=== PATIENT | male | born 1955 | race Caucasian/White ===

== ENCOUNTER → 2016-12-10 | Day surgery (SDC) | payer OTHER ==
[2016-12-06 08:23] VITALS: Ht 190.5 cm; Wt 140.9 kg
[2016-12-06 14:37] LABS: BASO % 0.5 %; BASO ABS # 0.03 K/uL (0-0.2); EOS % 1.2 %; HEMATOCRIT 41.3 % (42-52); IG% 0.2 %; LYMPH % 21.5 %; LYMPH ABS # 1.21 K/uL (1.2-3.4); MEAN CELL VOLUME 83.6 fL (80-100); MEAN CORPUSCULAR HEMOGLOBIN 28.5 pg (25-34); MEAN PLATELET VOLUME 9.5 fL (7.4-10.4); MONO % 5.2 %; NEUT % 71.4 %; PLATELET COUNT 203 K/uL (130-400); RED BLOOD COUNT 4.94 M/uL (4.7-6.1); WHITE BLOOD COUNT 5.62 K/uL (4.8-10.8)
[2016-12-06 14:41] LABS: COMPLETE YES; MEAN CORPUSCULAR HGB CONC 34.1 g/dl (32-36)
[2016-12-06 14:56] LABS: INR 2.4 (0.9-1.1); PARTIAL THROMBOPLASTIN RATIO 1.4; PROTHROMBIN TIME (PATIENT) 27.1 SECONDS (9.0-12.0)
--- NOTE | 2016-12-06 15:02 | DIAGNOSTIC IMAGING REPORT ---
TWO VIEW CHEST CLINICAL HISTORY: Preoperative examination. FINDINGS: PA and lateral chest radiographs are compared to study dated 11/14/2016. The cardiomediastinal silhouette is unremarkable. The lungs and pleural spaces are clear. There is no pneumothorax. The bony thorax appears intact. Degenerative change is noted in the thoracic spine. IMPRESSION: No active disease in the chest. Electronically signed by: Morgan Nichols M.D. 12/06/2016 3:00 PM Dictated Date/Time: 12/06/2016 3:00 PM
[2016-12-06 15:11] LABS: BUN/CREATININE RATIO 11.4 (10-20); CREATININE 1.1 mg/dl (0.60-1.40); POTASSIUM 3.6 mmol/L (3.5-5.1)
--- NOTE | 2016-12-09 15:42 | DIAGNOSTIC IMAGING REPORT ---
KUB CLINICAL HISTORY: Nephrolithiasis. Urinary tract infection. Enlarged prostate. COMPARISON STUDY: CT of the abdomen and pelvis November 14, 2016 and KUB November 12, 2016. FINDINGS: A 1.2 cm calcification projects over the left renal pelvis. This likely reflects migration of the calculus which was shown on CT of November 14, 2016. No additional calculi are identified on this exam. Surgical coils within the right groin are noted. Bowel gas pattern is normal. IMPRESSION: 1.2 cm calculus likely within the left renal pelvis. Electronically signed by: Yury Pete M.D. 12/09/2016 3:40 PM Dictated Date/Time: 12/09/2016 3:37 PM
[~2016-12-10] VITALS: Ht 190.5 cm; Wt 140.9 kg
[~2016-12-10] MED LIST: ACET-1256 PO; CEFD1CAP14 PO; CEFD300C2 PO; CHOL4POW11 PO; CIPR-255 PO; CIPR1TAB11 PO; CMD05 PO; DULO60CA44 PO; EpHEDrine SULFATE INJ 50 MG/ML AMP ONE; FENTANYL CITRATE INJ 50 MCG/1 ML 2 ML VIAL IV PRN; FENTANYL CITRATE INJ 50 MCG/1 ML 2 ML VIAL ONE; FERR18TA2 PO; HYT/10 PO; HYZ/10015 PO; LACTATED RINGER'S 1000ML 1,000 ML IV PRN; LACTATED RINGER'S 1000ML 1,000 ML IV SCH; LEVOFLOXACIN / D5W 500 MG IV SCH; LEVOFLOXACIN 500MG / D5W IV SCH; LIDOCAINE HCL 2% 2 ML VIAL (20MG/ML) ONE; METO1TAB69 PO; METR-163 PO; MIDAZOLAM HCL 1 MG/ML 2ML VIAL ONE; MINO1TAB PO; MISCCAP80 PO; MULT-506 PO; NRV/5 PO; ONDANSETRON INJ 2 MG/ML 2 ML VIAL IV PRN; ONDANSETRON INJ 2 MG/ML 2 ML VIAL ONE; OXYC-57 PO; OXYC-609 PO; OXYC1TAB3 PO; OXYCODONE/ACETAMINOPHEN 5-325 TAB PO PRN; PHEN-775 PO; PROPOFOL IV EMULSION 10 MG/ML 20 ML VIAL IV ONE; RIVA1TAB4 PO; SODIUM CHLORIDE 0.9% INJ 10 ML VIAL ONE; TPRSR/100 PO; WARF-246 PO; WARF2TAB8 PO; WARF4TAB44 PO; WARF6TAB5 PO
--- NOTE | 2016-12-10 06:44 | History & Physical Bridge Note ---
H&P Re-Evaluation Bridge Note: I have examined the patient, reviewed the History & Physical and in the interval since the performance of the History & Physical I have noted the following changes of clinical significance: No changes noted
--- NOTE | 2016-12-10 07:38 | Discharge Instructions ---
Discharge Instructions Admission Reason for Admission: Stones N20.0;Enlarged Prostate Luts;Nephrolithias Discharge Discharge Diagnosis / Problem: L stones for ESWL Discharge Goals Goal(s): Improve function, Improve disease control, Therapeutic intervention Activity Recommendations Activity Limitations: per Instructions/Follow-up section Lifting Limitations: gradually increase as tolerated Exercise/Sports Limitations: rest today May Resume Sexual Activity: when tolerated Shower/Bathe: no limitations Driving or Machine Use: resume 1 day after discharge . Instructions / Follow-Up Instructions / Follow-Up Strain urine as instructed KUB Xray before visit in office as scheduled. Discharge Diet Recommended Diet: Regular Diet (good fluid intake) Procedures Procedures Performed: Left Extracorporeal Shock Wave Lithotripsy Pending Studies Studies pending at discharge: no Medical Emergencies . Who to Call and When: Medical Emergencies: If at any time you feel your situation is an emergency, please call 911 immediately. . Non-Emergent Contact Non-Emergency issues call your: Urologist Call Non-Emergent contact if: you have a fever, temperature is above 101, your pain is not controlled, your pain is worsening, your pain is unusual for you, your pain is concerning you, you have any medication questions . . "Provider Documentation" section prepared by Benton Alexander. VTE Core Measure Inpt VTE Proph given/why not?: SCD's
--- NOTE | 2016-12-10 07:45 | [facility] Post Operative Brief Note ---
Immediate Operative Summary Operative Date Dec 10, 2016. Pre-Operative Diagnosis Left Renal Calculi Post-Operative Diagnosis Same Procedure(s) Performed Left Extracorporeal Shock Wave Lithotripsy Surgeon Dr. Tushar Alexander Food Services Director Surgeon(s) None Estimated Blood Loss None Findings Good stone fragmentation Specimens None Drains NA Anesthesia GALMA Complication(s) None Disposition Recovery Room / PACU
--- NOTE | 2016-12-10 08:09 | Anesthesia Progress Nt - [facility] ---
Anesthesia Post Op Note Date & Time Dec 10, 2016 at 08:08 Vital Signs Pain Intensity: 0 Vital Signs Past 12 Hours Date Time Temp Pulse Resp B/P Pulse Ox O2 Delivery O2 Flow Rate FiO2 12/10/16 08:05 72 14 12/10/16 08:05 72 14 95 12/10/16 08:03 147/86 12/10/16 08:00 64 9 98 12/10/16 08:00 65 9 12/10/16 07:58 133/79 12/10/16 07:57 136/81 12/10/16 07:55 65 3 12/10/16 07:55 65 3 99 12/10/16 06:21 36.9 67 138/84 96 Room Air Notes Mental Status: alert / awake / arousable, participated in evaluation Pt Amnestic to Procedure: Yes Nausea / Vomiting: adequately controlled Pain: adequately controlled Airway Patency, RR, SpO2: stable & adequate BP & HR: stable & adequate Hydration State: stable & adequate Anesthetic Complications: no major complications apparent Pt doing well.
--- NOTE | 2016-12-10 08:27 | OPERATIVE REPORT ---
DATE OF OPERATION: 12/10/2016 PREOPERATIVE DIAGNOSIS: Left renal stone, 11 mm in size. POSTOPERATIVE DIAGNOSIS: Same. PROCEDURE: Left-sided renal extracorporeal shockwave lithotripsy. SURGEON: Dr. Benton Alexander. LUBRICATING ENGINEER: None. ANESTHESIA: General anesthesia with laryngeal mask. COMPLICATIONS: None. FINDINGS: Good stone fragmentation on fluoroscopy. DETAILS OF PROCEDURE: The patient was brought to the litho suite. He was correctly identified and the stone was visualized on his most recent x-rays. After the correct time out was performed the patient was positioned over the therapy head. An adequate level of anesthesia was administered. The extracorporeal shockwave lithotripsy treatment was then commenced. Please see the [facility] Management sheet for complete treatment summary. After completion of the procedure the patient was taken to the recovery room in stable condition. I attest to the content of the Intraoperative Record and any orders documented therein. Any exceptio ns are noted below.
[2016-12-10 08:30] VITALS: TEMP 36.4
[2016-12-10 08:55] VITALS: BP 154/93; PULSE 68; O2SAT 97
== END | disposition home or self-care (01) ==
LOC: X.SURG 06:10
PROVIDERS: ATTEND Urology
DX: N20.0 Calculus of kidney (principal); N40.1 Benign prostatic hyperplasia with lower urinary tract symptoms; N39.41 Urge incontinence; N39.0 Urinary tract infection, site not specified; N39.43 Post-void dribbling; Z51.81 Encounter for therapeutic drug level monitoring; Z79.01 Long term (current) use of anticoagulants

== ENCOUNTER → 2016-12-22 | Outpatient (CLI) | payer OTHER ==
[~2016-12-22] MED LIST changes: -EpHEDrine SULFATE INJ 50 MG/ML AMP ONE; -FENTANYL CITRATE INJ 50 MCG/1 ML 2 ML VIAL IV PRN; -FENTANYL CITRATE INJ 50 MCG/1 ML 2 ML VIAL ONE; -LACTATED RINGER'S 1000ML 1,000 ML IV PRN; -LACTATED RINGER'S 1000ML 1,000 ML IV SCH; -LEVOFLOXACIN / D5W 500 MG IV SCH; -LEVOFLOXACIN 500MG / D5W IV SCH; -LIDOCAINE HCL 2% 2 ML VIAL (20MG/ML) ONE; -MIDAZOLAM HCL 1 MG/ML 2ML VIAL ONE; -ONDANSETRON INJ 2 MG/ML 2 ML VIAL IV PRN; -ONDANSETRON INJ 2 MG/ML 2 ML VIAL ONE; -OXYCODONE/ACETAMINOPHEN 5-325 TAB PO PRN; -PROPOFOL IV EMULSION 10 MG/ML 20 ML VIAL IV ONE; -SODIUM CHLORIDE 0.9% INJ 10 ML VIAL ONE
== END | disposition home or self-care (01) ==
LOC: C.LABSPEC 17:34
PROVIDERS: ATTEND Urology
DX: N20.0 Calculus of kidney (principal); N39.41 Urge incontinence; N39.0 Urinary tract infection, site not specified

== ENCOUNTER → 2016-12-22 | Outpatient (CLI) | payer OTHER ==
--- NOTE | 2016-12-22 14:55 | DIAGNOSTIC IMAGING REPORT ---
KUB CLINICAL HISTORY: N20.0 Nephrolithiasis COMPARISON STUDY: 12/09/2016 FINDINGS: There is no evidence of pathologic bowel dilatation. There are postsurgical changes are prior right-sided inguinal hernia repair. There is a punctate calcification projected over the right kidney consistent with a calculus. The previously identified 12 mm calcification at the level of the left renal pelvis is no longer visualized. There are faint densities projected over lower left sacrum. These likely reflect vascular calcifications or overlying enteric contents. No definite ureteral calculi are visualized. IMPRESSION: 1. No evidence of pathologic bowel dilatation 2. Right-sided nephrolithiasis 3. The previously identified 12 mm calculus at the level the left renal pelvis is no longer visualized Electronically signed by: Radhames Avery M.D. 12/22/2016 2:53 PM Dictated Date/Time: 12/22/2016 2:51 PM
== END | disposition home or self-care (01) ==
LOC: C.RAD 14:26
PROVIDERS: ATTEND Urology
DX: N20.0 Calculus of kidney (principal)

== ENCOUNTER 2017-01-31 11:21 | Inpatient (IN) | payer OTHER ==
[~2017-01-31] VITALS: Ht 190.5 cm; Wt 143.9 kg
[~2017-01-31 11:21] MED LIST changes: -ACET-1256 PO; -CEFD1CAP14 PO; -CEFD300C2 PO; -CHOL4POW11 PO; -CIPR-255 PO; -CIPR1TAB11 PO; -CMD05 PO; -DULO60CA44 PO; -HYT/10 PO; -HYZ/10015 PO; -METR-163 PO; -MINO1TAB PO; -MULT-506 PO; -NRV/5 PO; -OXYC-57 PO; -OXYC-609 PO; -PHEN-775 PO; -RIVA1TAB4 PO; -TPRSR/100 PO; -WARF-246 PO; -WARF2TAB8 PO; -WARF4TAB44 PO
[2017-01-31] MEDS ORDERED: CMD05 PO (11:42)
[2017-01-31] MEDS ORDERED: SODIUM CHLORIDE 0.9% 1000ML 1,000 ML IV ONE ×2 (12:00→14:30)
--- NOTE | 2017-01-31 12:17 | EMERGENCY ROOM VISIT NOTE ---
History Report prepared by Debra: Caro Escobar Under the Supervision of: Dr. Contreras Cantor M.D. First contact with patient: 11:51 Chief Complaint: URINARY SYMPTOMS Stated Complaint: URINARY TRACT INFECTION,FEVER History of Present Illness The patient is a 61 year old male who presents to the Emergency Room with complaints of constant urinary symptoms beginning yesterday. The patient states that he has been having frequent UTI's for the past 1.5 years. Over the last few months he has had multiple UTI's and was previously on antibiotics for 21 days and when he was off for 3 days he got another UTI. He states that he was just on antibiotics again for 30 days and has been off of them for 4 days before experiencing symptoms. He notes that he has had 13 knee surgeries and has been catheterized multiple times. The patient complains of a fever of 102.5 , urinary incontinence, pain with urination, and decreased urine output with increased urine frequency. He denies any sore throat, chest pain, cough, skin infection, and back pain. He reports that Tylenol decreases his fever. Source of History: patient Onset: yesterday Position: other (urinary) Timing: constant Modifying Factors (Relieving): tylenol Associated Symptoms: + fevers, + urinary symptoms, No back pain, No chest pain, No cough, No sorethroat Note: He denies any skin infection. Review of Systems All systems have been listed, reviewed, and are negative other than those previously mentioned. Please see Additional Medical History Sheet. Past Medical & Surgical Medical Problems: (1) Kidney stones (2) UTI (urinary tract infection) (3) UTI, possible mild sepsis/acute kidney failure Family History No pertinent family history Social History Smoking Status: Former Smoker Marital Status: Housing Status: lives with family Occupation Status: disabled Current/Historical Medications Scheduled Acetaminophen (Tylenol), 1,000 MG PO BID Amlodipine Besylate (Amlodipine Besylate), 5 MG PO QAM Duloxetine Hcl (Cymbalta), 60 MG PO QAM Ferrous Fumarate (Iron), 18 MG PO QAM Hctz/Losartan (Hyzaar 25MG/100MG), 1 TAB PO QAM Metoprolol Succ (Toprol Xl) (Toprol-Xl ), 100 MG PO QAM Minoxidil (Minoxidil), 5 MG PO BID Oxycodone Ir (Roxicodone Ir), 5 MG PO QPM Probiotic Product (Probiotic), 2 CAP PO AC Terazosin HCl (Terazosin HCl), 10 MG PO HS Warfarin Sod (Jantoven), 6 MG PO QPM Warfarin Sod (Coumadin), 0.5 MG PO QPM Allergies Coded Allergies: Vancomycin (Verified Allergy, Intermediate, "My kidney's shut down", ) Physical Exam Vital Signs Date Time Temp Pulse Resp B/P Pulse Ox O2 Delivery O2 Flow Rate FiO2 01/31/17 13:55 88 16 130/70 97 Room Air 01/31/17 12:46 88 16 121/67 97 Room Air 01/31/17 11:23 37.5 88 18 119/73 96 Room Air Physical Exam GENERAL: Patient awake, alert, oriented x 3. Patient follows commands. Patient does not appear toxic. Patient is adequately hydrated and well- nourished. SKIN: No erythema, pallor, cyanosis or rash HEENT: Normal head, pupils equal, reactive to light and accommodation. Ears normal. Oral cavity and posterior pharynx appear normal. Neck: Without adenopathy, no neck vein distention. LUNGS: Clear to auscultation. No wheezes, no rales, no rhonchi. HEART: Grade 2/6 systolic murmur. No gallops. No rubs ABDOMEN: No masses, no rebound, no hepatomegaly or splenomegaly. EXTREMITIES: Patient has chronic swelling of both knees and well healed incisions of both knees. No calf or thigh tenderness. NEUROLOGIC: Cranial nerves II-XII within normal limits. No gross motor sensory function deficits. RECTAL: Brown stool. Prostate is non-tender. : No signs or trauma or infection. Medical Decision & Procedures ER Provider Diagnostic Interpretation: Echocardiogram results as interpreted by the records management coordinator and review of me. Interpretation Summary * Name: LAUREN TORIBIO Study Date: 01/31/2017 02:02 PM BP: 121/67 mmHg * Patient Location: C.EDB HR: 88 * : 1955 (M/d/yyyy) Gender: Male Height: 75 in * Age: 61 yrs Ethnicity: CA Weight: 275 lb * Ordering Physician: Contreras Cantor * Referring Physician: Self, Referred * Performed By: Dennise Mares RCS * * Reason For Study: FEVER * BSA: 2.5 m2 * -- Conclusions -- * Left ventricular systolic function is normal. * No regional wall motion abnormalities noted. * Ejection Fraction = 60-65%. * There is moderate concentric left ventricular hypertrophy. * Diastolic dysfunction, Grade II (pseudonormalization pattern). * No significant valvular pathology. Procedure Details * A complete two-dimensional transthoracic echocardiogram was performed (2D, M-mode, Doppler and color flow Doppler). Left Ventricle * The left ventricle is normal in size. * There is moderate concentric left ventricular hypertrophy. * Left ventricular systolic function is normal. * Ejection Fraction = 60-65%. * No regional wall motion abnormalities noted. Right Ventricle * The right ventricle is not well visualized. * The right ventricular systolic function is normal as assessed by tricuspid annular plane systolic excursion (TAPSE) (normal >1.5 cm). Atria * The left atrium is moderately dilated. * Right atrium not well visualized. * No ASD detected; PFO is not assessed. Mitral Valve * The mitral valve is normal in structure and function. * There is no vegetation seen on the mitral valve. * There is no mitral valve stenosis. * There is trace mitral regurgitation. Tricuspid Valve * The tricuspid valve is not well visualized, but is grossly normal. * Significant tricuspid regurgitation is absent. Aortic Valve * The aortic valve is normal in structure and function. * There is no aortic valvular vegetation. * No hemodynamically significant valvular aortic stenosis. * There is no significant aortic regurgitation. Pulmonic Valve * The pulmonic valve is not well visualized. Great Vessels * Borderline aortic root dilatation. Pericardium/Pleural * There is no pericardial effusion. Great Vessels * Normal inferior vena cava size and collapsability with sniff indicates a normal right atrial pressure of 3 mmHg Left Ventricular Diastolic Function * Diastolic dysfunction, Grade II (pseudonormalization pattern). MMode 2D Measurements and Calculations IVSd 1.7 cm IVSs 2.4 cm LVIDd 5.1 cm LVIDs 2.8 cm LVPWd 1.4 cm LVPWs 1.8 cm IVS/LVPW 1.2 FS 44.8 % EDV(Teich) 124.3 ml ESV(Teich) 30.1 ml EF(Teich) 75.8 % EDV(cubed) 133.4 ml ESV(cubed) 22.5 ml EF(cubed) 83.2 % % IVS thick 41.4 % % LVPW thick 33.1 % LV mass(C)d 346.3 grams LV mass(C)dI 137.9 grams/m\\S\\2 LV mass(C)s 274.6 grams LV mass(C)sI 109.3 grams/m\\S\\2 SV(Teich) 94.2 ml SI(Teich) 37.5 ml/m\\S\\2 SV(cubed) 110.9 ml SI(cubed) 44.1 ml/m\\S\\2 Ao root diam 4.2 cm Ao root area 14.1 cm\\S\\2 ACS 2.3 cm LA dimension 4.5 cm LA/Ao 1.1 LVOT diam 2.1 cm LVOT area 3.5 cm\\S\\2 LVAd ap4 41.5 cm\\S\\2 LVLd ap4 9.0 cm EDV(MOD-sp4) 156.5 ml EDV(sp4-el) 162.5 ml LVAs ap4 27.9 cm\\S\\2 LVLs ap4 8.3 cm ESV(MOD-sp4) 80.9 ml ESV(sp4-el) 79.9 ml EF(MOD-sp4) 48.3 % EF(sp4-el) 50.9 % LVAd ap2 40.7 cm\\S\\2 LVLd ap2 9.6 cm EDV(MOD-sp2) 145.6 ml EDV(sp2-el) 147.1 ml LVAs ap2 23.0 cm\\S\\2 LVLs ap2 8.0 cm ESV(MOD-sp2) 54.6 ml ESV(sp2-el) 55.7 ml EF(MOD-sp2) 62.5 % EF(sp2-el) 62.2 % LVLd %diff 5.8 % EDV(MOD-bp) 152.3 ml LVLs %diff -3.07 % ESV(MOD-bp) 67.5 ml EF(MOD-bp) 55.7 % SV(MOD-sp4) 75.7 ml SI(MOD-sp4) 30.1 ml/m\\S\\2 SV(MOD-sp2) 91.0 ml SI(MOD-sp2) 36.2 ml/m\\S\\2 SV(MOD-bp) 84.8 ml SI(MOD-bp) 33.8 ml/m\\S\\2 SV(sp4-el) 82.7 ml SI(sp4-el) 32.9 ml/m\\S\\2 SV(sp2-el) 91.4 ml SI(sp2-el) 36.4 ml/m\\S\\2 Doppler Measurements and Calculations MV E max moshe 80.6 cm/sec MV A max moshe 62.1 cm/sec MV E/A 1.3 MV P1/2t max moshe 100.0 cm/sec MV P1/2t 70.0 msec MVA(P1/2t) 3.1 cm\\S\\2 MV dec slope 418.8 cm/sec\\S\\2 MV dec time 0.25 sec Ao V2 max 147.1 cm/sec Ao max PG 8.7 mmHg Ao max PG (full) 3.0 mmHg ROLLY(V,A) 2.8 cm\\S\\2 ROLLY(V,D) 2.8 cm\\S\\2 LV V1 max PG 5.7 mmHg LV V1 max 119.2 cm/sec PA V2 max 125.9 cm/sec PA max PG 6.3 mmHg TR max moshe 241.3 cm/sec Laboratory Results 01/31/17 12:25 Red Blood Count 4.47, Mean Corpuscular Volume 81.9, Mean Corpuscular Hemoglobin 28.6, Mean Corpuscular Hemoglobin Concent 35.0, Mean Platelet Volume 9.3, Neutrophils (%) (Auto) 88.1, Lymphocytes (%) (Auto) 5.4, Monocytes (%) (Auto) 6.0, Eosinophils (%) (Auto) 0.1, Basophils (%) (Auto) 0.2, Neutrophils # (Auto) 11.40, Lymphocytes # (Auto) 0.70, Monocytes # (Auto) 0.78, Eosinophils # (Auto) 0.01, Basophils # (Auto) 0.02 01/31/17 12:25 Test 01/31/17 12:25 01/31/17 12:34 01/31/17 12:40 01/31/17 14:41 White Blood Count 12.94 K/uL (4.8-10.8) Red Blood Count 4.47 M/uL (4.7-6.1) Hemoglobin 12.8 g/dL (14.0-18.0) Hematocrit 36.6 % (42-52) Mean Corpuscular Volume 81.9 fL (80-100) Mean Corpuscular Hemoglobin 28.6 pg (25-34) Mean Corpuscular Hemoglobin Concent 35.0 g/dl (32-36) Platelet Count 200 K/uL (130-400) Mean Platelet Volume 9.3 fL (7.4-10.4) Neutrophils (%) (Auto) 88.1 % Lymphocytes (%) (Auto) 5.4 % Monocytes (%) (Auto) 6.0 % Eosinophils (%) (Auto) 0.1 % Basophils (%) (Auto) 0.2 % Neutrophils # (Auto) 11.40 K/uL (1.4-6.5) Lymphocytes # (Auto) 0.70 K/uL (1.2-3.4) Monocytes # (Auto) 0.78 K/uL (0.11-0.59) Eosinophils # (Auto) 0.01 K/uL (0-0.5) Basophils # (Auto) 0.02 K/uL (0-0.2) RDW Standard Deviation 42.3 fL (36.4-46.3) RDW Coefficient of Variation 14.0 % (11.5-14.5) Immature Granulocyte % (Auto) 0.2 % Immature Granulocyte # (Auto) 0.03 K/uL (0.00-0.02) Erythrocyte Sedimentation Rate 42 mm/hr (0-14) Anion Gap 11.0 mmol/L (3-11) Est Creatinine Clear Calc Drug Dose 72.7 ml/min Estimated GFR () 57.0 Estimated GFR (Non- 49.2 BUN/Creatinine Ratio 10.2 (10-20) Calcium Level 8.7 mg/dl (8.5-10.1) Total Bilirubin 0.8 mg/dl (0.2-1) Aspartate Amino Transf (AST/SGOT) 10 U/L (15-37) Alanine Aminotransferase (ALT/SGPT) 29 U/L (12-78) Alkaline Phosphatase 66 U/L (45-117) Total Protein 6.9 gm/dl (6.4-8.2) Albumin 3.0 gm/dl (3.4-5.0) Globulin 3.9 gm/dl (2.5-4.0) Albumin/Globulin Ratio 0.8 (0.9-2) Procalcitonin 1.29 ng/mL (0-0.5) Urine Color DK YELLOW Urine Appearance CLOUDY (CLEAR) Urine pH 6.0 (4.5-7.5) Urine Specific [place] 1.015 (1.000-1.030) Urine Protein 1+ (NEG) Urine Glucose (UA) NEG (NEG) Urine Ketones NEG (NEG) Urine Occult Blood 3+ (NEG) Urine Nitrite NEG (NEG) Urine Bilirubin NEG (NEG) Urine Urobilinogen NEG (NEG) Urine Leukocyte Esterase LARGE (NEG) Urine WBC (Auto) >30 /hpf (0-5) Urine RBC (Auto) >30 /hpf (0-4) Urine Hyaline Casts (Auto) 1-5 /lpf (0-5) Urine Epithelial Cells (Auto) >30 /lpf (0-5) Urine Bacteria (Auto) 4+ (NEG) Bedside Lactic Acid Venous 2.63 mmol/L (0.90-1.70) Test 01/31/17 15:16 Laboratory results as stated above per my review. Medications Administered Medications (Trade) Dose Ordered Sig/Candy Route Start Time Stop Time Status Last Admin Dose Admin Sodium Chloride 1,000 ml @ 1,000 mls/hr Q1H ONCE IV 01/31/17 12:00 01/31/17 12:59 DC 01/31/17 12:00 1,000 MLS/HR Daptomycin 750 mg/ Sodium Chloride 65 ml @ 120 mls/hr NOW ONCE IV 01/31/17 14:15 01/31/17 14:47 DC 01/31/17 15:10 120 MLS/HR Sodium Chloride (Nss 1000ml) 1,000 ml @ 1,000 mls/hr Q1H ONCE IV 01/31/17 14:30 01/31/17 15:29 01/31/17 15:13 1,000 MLS/HR ECG Rate (beats per minute): 87 Rhythm: sinus rhythm Findings: PVC (occasional), no acute ischemic change ED Course 1151: Past medical records reviewed. The patient was evaluated in room B4. A complete history and physical examination was performed. 1200: Sodium Chloride 1000 ml @ 1000 mls/hr IV. 1216: I spoke briefly with Dr. Ghotra who approved an echo. 1413: Discussed the patient's case with Dr. Callejas of [facility]. The patient will be evaluated for further management. 1415: Daptomycin 740mg/Sodium Chloride 65ml @ 120mls/hr IV, Imipenem/Cilastatin Sodium 500mg/Dextrose 110ml @ 110mls/hr IV. 1421: Upon reevaluation, the patient is hemodynamically stable. I discussed today's findings with the patient. He verbalized agreement of the treatment plan. I spoke with Dr. Callejas of the [facility] Hospitalist Service to evaluate the patient for further management. Medical Decision Differential diagnoses include recurrent UTI, pyelonephritis, endocarditis, prostatitis. The patient has had recurrent bacterial infections from his knees and now over the past several months from his urinary tract. The patient has been on multiple antibiotics but the infection appears to recur shortly after completion of the antibiotic. He is now here with dysuria, frequency urgency and incontinence. He has fever and chills. Multiple labs were evaluated. Please see above. The patient's white count and lactic acid are elevated. Urinalysis appears infected. Blood cultures were obtained prior to institution of daptomycin and imipenem. The patient was given 2 fluid boluses. Patient had a murmur and therefore an echocardiogram was performed but no valvular abnormalities were seen. I discussed care with the patient, his , records management coordinator and the hospitalist. Consults Time Called: 1214 Consulting Physician: Dr. Ghotra Returned Call: 1216 I spoke briefly with Dr. Ghotra who approved an echo. Additional Consults: Time Called: 1410 Consulted Physician: Dr. Callejas [facility] Returned Call: 1413 Additional Comments: Discussed the patient's case with Dr. Callejas of [facility]. The patient will be evaluated for further management. Time Called: 1440 Consulted Physician: Dr. Ghotra Returned Call: 1448 Additional Comments: I spoke to Dr. Ghotra. We discussed the results of echocardiogram and there are no valve problems noted. Impression Primary Impression: Sepsis secondary to UTI Additional Impression: Hypokalemia Scribe Attestation The scribe's documentation has been prepared under my direction and personally reviewed by me in its entirety. I confirm that the note above accurately reflects all work, treatment, procedures, and medical decision making performed by me. Departure Information Referrals Benton Alexander MD, Urology (PCP) Patient Instructions My [facility] Problem Qualifiers
[2017-01-31 12:52] LABS: BASO % 0.2 %; BASO ABS # 0.02 K/uL (0-0.2); COMPLETE YES; EOS % 0.1 %; HEMATOCRIT 36.6 % (42-52); IG% 0.2 %; LYMPH % 5.4 %; MEAN CELL VOLUME 81.9 fL (80-100); MEAN CORPUSCULAR HEMOGLOBIN 28.6 pg (25-34); MEAN PLATELET VOLUME 9.3 fL (7.4-10.4); NEUT % 88.1 %; PLATELET COUNT 200 K/uL (130-400); RED BLOOD COUNT 4.47 M/uL (4.7-6.1); WHITE BLOOD COUNT 12.94 K/uL (4.8-10.8)
[2017-01-31 13:06] LABS: BUN/CREATININE RATIO 10.2 (10-20); CALCIUM 8.7 mg/dl (8.5-10.1); CREATININE 1.5 mg/dl (0.60-1.40); POTASSIUM 3.2 mmol/L (3.5-5.1)
[2017-01-31 13:09] LABS: ALB/GLOB RATIO 0.8 (0.9-2)
[2017-01-31 13:10] LABS: URINE APPEARANCE CLOUDY (CLEAR); URINE BILIRUBIN NEG (NEG); URINE COLOR DK YELLOW; URINE EPITHELIAL CELL AUTO >30 /lpf (0-5); URINE NITRITE NEG (NEG); URINE SPECIFIC GRAVITY 1.015 (1.000-1.030); UROBILINOGEN NEG (NEG); ZZUR CULT IF INDIC CLEAN CATCH YES
[2017-01-31 13:21] LABS: MANUAL MICROSCOPIC REQUIRED? NO; REVIEW REQ? NO
[2017-01-31] MEDS ORDERED: IMIPENEM/CILASTATIN IV 500 MG in D5W 100ML IV ONE (14:15)
[2017-01-31] MEDS ORDERED: DAPTOmycin IV 750 MG in SODIUM CHLORIDE 0.9% 50ML 50 ML IV ONE (14:15)
--- NOTE | 2017-01-31 14:31 | ECHOCARDIOGRAM REPORT ---
*NOTICE TO RECEIVING CONSTITUTION PARTY AGENCY This information is strictly Confidential and protected under [place] law. [place] law prohibits you from making any further disclosure of this information unless further disclosure is expressly permitted by the written consent of the person to whom it pertains or is authorized by law. A general authorization for the release of medical or other information is not sufficient for this purpose. Hospital accepts no responsibility if the information is made available to any other person, INCLUDING THE PATIENT. Interpretation Summary * Name: LAUREN TORIBIO Study Date: 01/31/2017 02:02 PM BP: 121/67 mmHg * Patient Location: .ED HR: 88 * : 1955 (M/d/yyyy) Gender: Male Height: 75 in * Age: 61 yrs Ethnicity: [place] Weight: 275 lb * Ordering Physician: Contreras Cantor * Referring Physician: Self, Referred * Performed By: Dennise Mares RCS * * Reason For Study: FEVER * BSA: 2.5 m2 * -- Conclusions -- * Left ventricular systolic function is normal. * No regional wall motion abnormalities noted. * Ejection Fraction = 60-65%. * There is moderate concentric left ventricular hypertrophy. * Diastolic dysfunction, Grade II (pseudonormalization pattern). * No significant valvular pathology. Procedure Details * A complete two-dimensional transthoracic echocardiogram was performed (2D, M-mode, Doppler and color flow Doppler). Left Ventricle * The left ventricle is normal in size. * There is moderate concentric left ventricular hypertrophy. * Left ventricular systolic function is normal. * Ejection Fraction = 60-65%. * No regional wall motion abnormalities noted. Right Ventricle * The right ventricle is not well visualized. * The right ventricular systolic function is normal as assessed by tricuspid annular plane systolic excursion (TAPSE) (normal >1.5 cm). Atria * The left atrium is moderately dilated. * Right atrium not well visualized. * No ASD detected; PFO is not assessed. Mitral Valve * The mitral valve is normal in structure and function. * There is no vegetation seen on the mitral valve. * There is no mitral valve stenosis. * There is trace mitral regurgitation. Tricuspid Valve * The tricuspid valve is not well visualized, but is grossly normal. * Significant tricuspid regurgitation is absent. Aortic Valve * The aortic valve is normal in structure and function. * There is no aortic valvular vegetation. * No hemodynamically significant valvular aortic stenosis. * There is no significant aortic regurgitation. Pulmonic Valve * The pulmonic valve is not well visualized. Great Vessels * Borderline aortic root dilatation. Pericardium/Pleural * There is no pericardial effusion. Great Vessels * Normal inferior vena cava size and collapsability with sniff indicates a normal right atrial pressure of 3 mmHg Left Ventricular Diastolic Function * Diastolic dysfunction, Grade II (pseudonormalization pattern). MMode 2D Measurements and Calculations IVSd 1.7 cm IVSs 2.4 cm LVIDd 5.1 cm LVIDs 2.8 cm LVPWd 1.4 cm LVPWs 1.8 cm IVS/LVPW 1.2 FS 44.8 % EDV(Teich) 124.3 ml ESV(Teich) 30.1 ml EF(Teich) 75.8 % EDV(cubed) 133.4 ml ESV(cubed) 22.5 ml EF(cubed) 83.2 % % IVS thick 41.4 % % LVPW thick 33.1 % LV mass(C)d 346.3 grams LV mass(C)dI 137.9 grams/m\S\2 LV mass(C)s 274.6 grams LV mass(C)sI 109.3 grams/m\S\2 SV(Teich) 94.2 ml SI(Teich) 37.5 ml/m\S\2 SV(cubed) 110.9 ml SI(cubed) 44.1 ml/m\S\2 Ao root diam 4.2 cm Ao root area 14.1 cm\S\2 ACS 2.3 cm LA dimension 4.5 cm LA/Ao 1.1 LVOT diam 2.1 cm LVOT area 3.5 cm\S\2 LVAd ap4 41.5 cm\S\2 LVLd ap4 9.0 cm EDV(MOD-sp4) 156.5 ml EDV(sp4-el) 162.5 ml LVAs ap4 27.9 cm\S\2 LVLs ap4 8.3 cm ESV(MOD-sp4) 80.9 ml ESV(sp4-el) 79.9 ml EF(MOD-sp4) 48.3 % EF(sp4-el) 50.9 % LVAd ap2 40.7 cm\S\2 LVLd ap2 9.6 cm EDV(MOD-sp2) 145.6 ml EDV(sp2-el) 147.1 ml LVAs ap2 23.0 cm\S\2 LVLs ap2 8.0 cm ESV(MOD-sp2) 54.6 ml ESV(sp2-el) 55.7 ml EF(MOD-sp2) 62.5 % EF(sp2-el) 62.2 % LVLd %diff 5.8 % EDV(MOD-bp) 152.3 ml LVLs %diff -3.07 % ESV(MOD-bp) 67.5 ml EF(MOD-bp) 55.7 % SV(MOD-sp4) 75.7 ml SI(MOD-sp4) 30.1 ml/m\S\2 SV(MOD-sp2) 91.0 ml SI(MOD-sp2) 36.2 ml/m\S\2 SV(MOD-bp) 84.8 ml SI(MOD-bp) 33.8 ml/m\S\2 SV(sp4-el) 82.7 ml SI(sp4-el) 32.9 ml/m\S\2 SV(sp2-el) 91.4 ml SI(sp2-el) 36.4 ml/m\S\2 Doppler Measurements and Calculations MV E max moshe 80.6 cm/sec MV A max moshe 62.1 cm/sec MV E/A 1.3 MV P1/2t max moshe 100.0 cm/sec MV P1/2t 70.0 msec MVA(P1/2t) 3.1 cm\S\2 MV dec slope 418.8 cm/sec\S\2 MV dec time 0.25 sec Ao V2 max 147.1 cm/sec Ao max PG 8.7 mmHg Ao max PG (full) 3.0 mmHg ROLLY(V,A) 2.8 cm\S\2 ROLLY(V,D) 2.8 cm\S\2 LV V1 max PG 5.7 mmHg LV V1 max 119.2 cm/sec PA V2 max 125.9 cm/sec PA max PG 6.3 mmHg TR max moshe 241.3 cm/sec
[2017-01-31] MEDS ORDERED: MAGNESIUM HYDROXIDE SUSP 30 ML UDC PO PRN (14:45)
[2017-01-31] MEDS ORDERED: ALUMINUM/MAGNESIUM/SIMETH (MAALOX MAX) 30 ML UDC PO PRN (14:45)
[2017-01-31] MEDS ORDERED: POLYETHYLENE (MIRALAX) 17 GM PACK PO PRN (14:45)
[2017-01-31] MEDS ORDERED: ONDANSETRON INJ 2 MG/ML 2 ML VIAL IV PRN (14:45)
[2017-01-31] MEDS ORDERED: ZOLPIDEM TARTRATE 5 MG TAB PO PRN (14:45)
[2017-01-31] MEDS ORDERED: POTASSIUM CHLORIDE 10 MEQ TABCR PO STA (14:51)
[2017-01-31] MEDS ORDERED: HydrALAZINE HCL 20 MG/ML VIAL IV. PRN (15:00)
[2017-01-31 15:32] LABS: PROTHROMBIN TIME (PATIENT) 21.7 SECONDS (9.0-12.0)
[2017-01-31 16:29] VITALS: BP 148/80; PULSE 97; TEMP 37.3; O2SAT 96; Ht 190.5 cm; Wt 143.9 kg
[2017-01-31] MEDS: SODIUM CHLORIDE 0.9% 1000ML 1,000 ML IV SCH (16:30)
--- NOTE | 2017-01-31 16:38 | DIAGNOSTIC IMAGING REPORT ---
ULTRASOUND KIDNEYS AND BLADDER CLINICAL HISTORY: Acute renal insufficiency. COMPARISON STUDY: Abdominal CT dated 11/14/2016. TECHNIQUE: Real-time, grayscale, and color flow sonography of the kidneys and bladder is performed. Images are reviewed in the transverse and longitudinal planes. FINDINGS: Kidneys: The kidneys are mildly enlarged and normal in echotexture. The right kidney measures 14.9 cm in length and the left kidney measures 15.1 cm in length. There is no hydronephrosis. No shadowing renal calculi are identified. There is no sonographic evidence of contour deforming renal mass lesion. Trace a nonspecific perinephric fluid is noted on the right. Bladder: The partially decompressed bladder is grossly normal in appearance. Ureteral jets were not seen. Upper abdomen: Survey images of the liver demonstrates hepatic steatosis. IMPRESSION: 1. The kidneys are without hydronephrosis. 2. The bladder was decompressed and grossly unremarkable. Electronically signed by: Morgan Nichols M.D. 01/31/2017 4:37 PM Dictated Date/Time: 01/31/2017 4:32 PM
--- NOTE | 2017-01-31 17:19 | HISTORY & PHYSICAL EXAMINATION ---
DATE OF ADMISSION: 01/31/2017 CHIEF COMPLAINT: Dysuria, urgency and frequencies and fever. HISTORY OF PRESENT ILLNESS: The patient is a 61-year-old white male with a significant past medical history of recurrent UTI, follow up with urologist; BPH, multiple knee surgeries, history of AFib on Coumadin currently, history of CAD stent, coming to the hospital Emergency Department because of the above chief complaint. The patient reported he has been feeling about constant urinary symptoms include dysuria, urgency and frequencies for 2 days. He was having fevers up to 102.3 two days ago and yesterday fever was up to 101. He has been having frequent urinary problems for more than 1-1/2 years. He has been on antibiotics and has several courses of antibiotic, has been followed up with Dr. Alexander. He has recently on antibiotics again for 30 days and has been off from antibiotic for 4 days and then he experienced the symptoms again. He has multiple knee surgeries including 13 knee surgeries. Multiple catheterizations as well. He reported has decreased urine output. In the Emergency Room, he was found to have UTI and possible mild sepsis. Has elevated creatinine level. ED physician has sent blood culture and urine culture, has started antibiotic or Invanz. The patient denied fever or chills now. Denied chest pain, palpitation, lower extremity swellings. Denied nausea, vomiting, abdominal pain, diarrhea, or constipation. Denied cough, sputum, shortness of breath. He reported has a history of AFib and has stroke before with left side weakness but able to up and walk with a cane. Skin has no rashes. PAST MEDICAL HISTORY: Like I mentioned in the above include WPW status post ablation, hypertension, CAD stent, AFib on Coumadin. PAST SURGICAL HISTORY: Include left knee surgeries, right knee surgeries, left elbow surgeries, appendectomy. ALLERGIES: ALLERGY TO VANCOMYCIN. REVIEW OF SYSTEMS: Please see HPI, otherwise 14 points organized system review were negative. MEDICATIONS: Currently taking at home include amlodipine 5 mg p.o. q.a.m., Cymbalta 60 mg p.o. q.a.m., ferrous fumarate 18 mg tab 1 tab p.o. q. a.m., metoprolol 100 mg p.o. q.a.m., minoxidil 10 mg tab 5 mg p.o. b.i.d., oxycodone IR 5 mg p.o. q.p.m., Probiotic 2 tab p.o. q. a.c., terazosin 10 mg p.o. at bedtime, warfarin 6.5 mg p.o. q.p.m. PHYSICAL EXAMINATION: VITAL SIGNS: Temperature is 37.5, pulse 88, respiration rate 18, blood pressure 119/73, pulse ox was 96% on room air. GENERAL: The patient is a white male, awake, alert and oriented, conversational, follows all commands. HEAD: Normocephalic. EYES: Pupils equal, round responds to light. EARS: Ear was normal. NOSE: Normal. NECK: Supple. Normal cognitions, speaks full sentence, good conversation. Thyroid no enlargement. Trachea midline. HEART: Regular rhythm. S1, S2. LUNGS: Decreased breathing sounds. There was no wheezing, rhonchi or crackles. ABDOMEN: Obese, nontender. Bowel sound was positive. GENITOURINARY AND RECTAL: Deferred. Bilateral CVA was nontender. BILATERAL LOWER EXTREMITIES: No swelling. Homans sign was negative. Anterior bilaterally has well healing scars. NEUROLOGICAL EVALUATION: Cranial nerves II through XII was intact. There was no local deficits. SKIN: Has no rashes. LABORATORY STUDIES: WBC 12, hemoglobin 12, platelet 200. ESR was 42. Sodium 137, potassium 3.2, BUN 15, creatinine 1.5. Random blood glucose 210. Lactic acid point of care 2.6. Procalcitonin level 1.29. UA shows UTI. IMAGING STUDIES: Not done. ASSESSMENT AND PLAN: A 61-year-old white male with the conditions below: 1. Urinary tract infection with history of recurrent urinary tract infection with fevers prior to the Emergency Room visit associated with leukocytosis, elevated lactase level. Therefore, he possible has mild sepsis. He got IV fluid in the Emergency Room. Blood cultures and urine cultures and antibiotic was started. I will keep him in the admission. 2. He has acute kidney failure with elevated BUN and creatinine. Creatinine was 1.5. Other medical conditions include 1. History of atrial fibrillation and stroke, on Coumadin 2. Hypertension. 3. Possible benign prostatic hypertrophy. 4. Depression, anxiety. 5. Chronic pain. Like I mentioned, will be full admission because at least 2 night hospital stay to complete evaluation and treatment. We will give IV antibiotics. Check lactase levels. Follow up culture and sensitivities. Because of recurrent UTI will have urology consultation. The patient known to Dr. Alexander already, will have Dr. Alexander's service to see the patient. The patient has acute kidney failure with creatinine elevated to 1.5, which is new. Will check kidney ritual peritoneal organ ultrasounds to see any blockages there. At the same time, I will hold renal offensive medications. Such as will hold HCTZ/losartan. I will give hydralazine for better blood pressure control as needed. We will continue Toprol for now. We will check labs tomorrow morning include a PT/INR. Has ordered PT, OT evaluation and treatment and social work supervisor to help for the discharge plan. DVT prophylaxis is covered by Coumadin. INR currently is therapeutic and GI prophylaxis will be Protonix.
[2017-01-31] MEDS ORDERED: ERTAPENEM IV 1 GM in SODIUM CHLOR 0.9% AD-VAN 50ML 50 ML IV SCH (18:00)
[2017-01-31] MEDS: LACTOBACILLUS ACIDOPHILUS (FLORANEX) TAB PO SCH (18:04)
[2017-01-31] MEDS: POTASSIUM CHLR 10 MEQ / WTR 10 MEQ in PREMIXED WATER 100 ML IV SCH ×2 (18:04→19:28)
[2017-01-31 19:26] VITALS: BP 169/84; PULSE 79; TEMP 36.7; O2SAT 96
[2017-01-31] MEDS: MINOXIDIL 2.5 MG TAB PO SCH (21:05)
[2017-01-31] MEDS: WARFARIN SOD 6 MG TAB PO SCH (21:05)
[2017-01-31] MEDS: WARFARIN SOD 0.5 MG TAB PO SCH (21:05)
[2017-01-31] MEDS: OXYCODONE HCL IR 5 MG TAB (IMMEDIATE RELEASE) PO SCH (21:10)
[2017-01-31] MEDS: ACETAMINOPHEN 325 MG TAB PO PRN (23:41)
[2017-01-31 23:58] VITALS: BP 137/91; PULSE 114; TEMP 39; O2SAT 94
[2017-02-01] VITALS (7 sets, daily range): BP systolic 127–185; BP diastolic 82–98; PULSE 78–100; TEMP 37–38.4; O2SAT 94–97
[2017-02-01] MEDS: SODIUM CHLORIDE 0.9% 1000ML 1,000 ML IV SCH ×3 (00:41→20:49)
[2017-02-01 07:37] LABS: BASO % 0.1 %; BASO ABS # 0.01 K/uL (0-0.2); COMPLETE YES; EOS % 0.5 %; HEMATOCRIT 36.9 % (42-52); IG% 0.3 %; LYMPH % 6.7 %; LYMPH ABS # 0.72 K/uL (1.2-3.4); MEAN CELL VOLUME 83.5 fL (80-100); MEAN CORPUSCULAR HEMOGLOBIN 29.2 pg (25-34); MEAN PLATELET VOLUME 9.2 fL (7.4-10.4); MONO % 10.2 %; NEUT % 82.2 %; PLATELET COUNT 204 K/uL (130-400); RED BLOOD COUNT 4.42 M/uL (4.7-6.1); WHITE BLOOD COUNT 10.81 K/uL (4.8-10.8)
[2017-02-01] MEDS: MINOXIDIL 2.5 MG TAB PO SCH ×2 (07:46→20:52)
[2017-02-01] MEDS: METOPROLOL SUCC 50MG EXT REL TAB PO SCH (07:47)
[2017-02-01] MEDS: PANTOprazole SOD 40 MG TAB PO SCH (07:47)
[2017-02-01] MEDS: DULOXETINE HCL 60 MG CAP PO SCH (07:47)
[2017-02-01] MEDS: AMLODIPINE BESYLATE 5 MG TAB PO SCH (07:48)
[2017-02-01] MEDS: FERROUS FUMARATE CONTR REL CAP 65 MG CAPCR PO SCH (07:48)
[2017-02-01] MEDS: LACTOBACILLUS ACIDOPHILUS (FLORANEX) TAB PO SCH ×4 (07:49→16:45)
[2017-02-01 07:50] LABS: INR 1.6 (0.9-1.1); PROTHROMBIN TIME (PATIENT) 17.4 SECONDS (9.0-12.0)
[2017-02-01 08:05] LABS: BUN/CREATININE RATIO 10.8 (10-20); CALCIUM 8.7 mg/dl (8.5-10.1); CREATININE 1.2 mg/dl (0.60-1.40); MAGNESIUM 2.2 mg/dl (1.8-2.4); POTASSIUM 3.3 mmol/L (3.5-5.1)
--- NOTE | 2017-02-01 10:17 | DIAGNOSTIC IMAGING REPORT ---
TESTICULAR ULTRASOUND HISTORY: RIGHT HYDROCELE, PERSISTENT UTI COMPARISON: None. FINDINGS: Right testis: 4.3 x 2.9 x 2.8 cm. There are no intratesticular masses. Normal color flow. Moderate to large hydrocele measuring approximately 90 cc. The epididymis is unremarkable. Left testis: 4.2 x 2.0 x 1.9 cm. There are no intratesticular masses. Normal color flow. No hydrocele. A few cysts within the epididymal head with the largest measuring 4 mm.. IMPRESSION: 1. Moderate to large right-sided hydrocele. 2. Normal testes. Electronically signed by: Mario Washburn M.D. 02/01/2017 10:16 AM Dictated Date/Time: 02/01/2017 10:13 AM
--- NOTE | 2017-02-01 10:33 | DIAGNOSTIC IMAGING REPORT ---
CT SCAN OF THE ABDOMEN AND PELVIS WITHOUT CONTRAST CLINICAL HISTORY: Recurrent UTI. History of stones. History of recent lithotripsy. COMPARISON STUDY: 11/14/2016 TECHNIQUE: CT scan of the abdomen and pelvis was performed from the lung bases to the proximal femurs. Images are reviewed in the axial, sagittal, and coronal planes. IV contrast was not administered for this examination. CT DOSE: 1946.44 mGy.cm FINDINGS: Lower chest: There are small bilateral pleural effusions. There is mild bibasilar atelectasis Liver: There is a stable 8 mm hypodensity within the left hepatic lobe. There is a stable hypodensity adjacent to the gallbladder fossa possibly representing focal fat. Gallbladder: Unremarkable. Spleen: There is scattered splenic granulomas. Pancreas: There is minimal infiltration of the fat surrounding the pancreatic tail. I suspect that this is a secondary process. Adrenal glands: There is mild left adrenal gland thickening similar to the prior study. Kidneys: There is a punctate nonobstructing right renal calculus. There is bilateral perinephric stranding. No ureteral calculi are visualized. Bowel: There are no transition zones indicate bowel obstruction. There is colonic diverticulosis. No acute peridiverticular inflammatory changes are visualized. There are no findings to indicate acute appendicitis. Peritoneum: There is no intraperitoneal free air or abdominal ascites. There is a fat-containing left inguinal hernia. Vasculature: The abdominal aorta is normal in course and caliber. Adenopathy: Para-aortic lymph nodes are the upper limits of normal in size. There are mildly enlarged right inguinal lymph nodes similar to the preceding study. Pelvic viscera: The bladder, and pelvic viscera are unremarkable. Skeletal structures: No destructive osseous lesions are seen. IMPRESSION: 1. No evidence of bowel obstruction. No evidence of free air 2. Diverticulosis. No evidence of acute diverticulitis 3. Fat-containing left inguinal hernia 4. Stable right inguinal adenopathy 5. Punctate nonobstructing right renal calculus 6. No obstructing ureteral calculi identified 7. Bilateral perinephric stranding 8. Mild infiltration the fat surrounding the pancreatic tail. I suspect that this is secondary to the perinephric stranding. 9. Small bilateral pleural effusions Electronically signed by: Radhames Avery M.D. 02/01/2017 10:31 AM Dictated Date/Time: 02/01/2017 10:25 AM
--- NOTE | 2017-02-01 11:12 | Medical Consult ---
Consultation Date of Consultation: Feb 01, 2017. Attending Physician: Choco Hong D.O. Reason for Consultation: Recurrent UTI History of Present Illness The patient is a 61-year-old male presents the emergency department with complaints of constant urinary symptoms. The patient had been experiencing frequency, urgency, and urinary retention. He has been having problems with recurrent and frequent urinary tract infections for approximately a year and a half. The patient states that he has had multiple different bacteria in his urinary tract over the past year or 2 including gram-positive cocci and a gram- negative bacilli. He had also undergone many knee surgeries on his right knee for recurrent infection. He most recently had his knee replaced in [place] at which time he was noted to have diphtheroids growing on his cultures. He was treated for this infection, and he states that he has had no major problems with his right knee since his last surgery. He did also have fever at home prior to admission to 102.5 F. his most recent records were reviewed including his inpatient and outpatient records. It was noted that on his inpatient records, the patient has had recent infection with Klebsiella pneumoniae on & 11/12/2016. He was also noted to have history of Pseudomonas fluorescens/putida in 2013. On 10/27/2016, the patient was noted to have Staph epidermidis growing in his urine. He had coag-negative staph resistant to Bactrim growing on 09/29/2016. He most recently was place on PO Levaquin for 21 days in regards to Klebsiella infection. A few days after discontinuation, he had symptoms returning, so he was given 30 more days. He finished that a few days prior to current symptoms. Prior to his PO Levaquin, the patient was on PO Zyvox for the Staph epi for 2, 14 day courses. He also had a lithotripsy completed about 5-6 weeks ago for kidney stones. He does have history of other stone surgeries as well. Upon current admission, the patient's white blood cell count was 12.94. ESR was 42. His creatinine was 1.50. Procalcitonin was 1.29, and point of care lactic acid was 2.63. Urine culture is growing gram-negative bacilli. Blood cultures are pending. MRSA nasal swab was negative. The patient is currently on IV ertapenem. Past Medical/Surgical History Medical Problems: (1) Hypokalemia Status: Acute (2) Prostatitis Status: Acute (3) Pyelonephritis Status: Acute (4) Sepsis secondary to UTI Status: Acute Medical Problems: (1) Kidney stones (2) UTI (urinary tract infection) (3) UTI, possible mild sepsis/acute kidney failure Family History No pertinent family history Noncontributory Social History Smoking Status: Former Smoker Marital Status: Housing Status: lives with family Occupation Status: disabled Allergies Coded Allergies: Vancomycin (Verified Allergy, Intermediate, "My kidney's shut down", ) Home Medications Reported Home Medications Medications Dose Route/Sig Max Daily Dose Days Date Category Dose Instructions Coumadin (Warfarin Sod) 0.5 Mg Tab 0.5 Mg PO QPM 01/31/17 Reported TAKE WITH 6MG TABS QPM TOTAL DOSE 6.5 MG Probiotic (Probiotic Product) 1 Cap Cap 2 Cap PO AC 11/14/16 Rx Roxicodone Ir (Oxycodone HCl) 5 Mg Tab 5 Mg PO QPM 11/14/16 Reported Toprol-Xl (Metoprolol Succinate) 100 Mg Tabcr 100 Mg PO QAM 11/14/16 Reported Amlodipine Besylate 5 Mg Tab 5 Mg PO QAM 11/14/16 Reported Tylenol (Acetaminophen) 500 Mg Tab 1,000 Mg PO BID 11/14/16 Reported Iron (Ferrous Fumarate) 18 Mg Tab 18 Mg PO QAM 11/14/16 Reported Hyzaar 25MG/100MG (HCTZ/Losartan Potassium) Tab 1 Tab PO QAM 11/14/16 Reported Jantoven (Warfarin Sodium) 6 Mg Tab 6 Mg PO QPM 11/14/16 Reported TAKE WITH .5 MG TABS TOTAL DOSE 6.5 MG QPM Cymbalta (Duloxetine Hcl) 60 Mg Cap 60 Mg PO QAM 04/23/14 Reported Terazosin HCl 10 Mg Cap 10 Mg PO HS 04/23/14 Reported Minoxidil 10 Mg Tab 5 Mg PO BID 04/23/14 Reported Current Inpatient Medications Current Inpatient Medications Medications (Trade) Dose Ordered Sig/Candy Route Start Time Stop Time Status Last Admin Dose Admin Sodium Chloride (Nss 1000ml) 1,000 ml @ 100 mls/hr Q10H IV 01/31/17 14:41 03/02/17 14:40 02/01/17 00:41 100 MLS/HR Acetaminophen (Tylenol Tab) 650 mg Q4H PRN PO 01/31/17 14:45 03/02/17 14:44 01/31/17 23:41 650 MG Al Hydrox/Mg Hydrox/Simethicone (Maalox Max Susp) 15 ml Q4H PRN PO 01/31/17 14:45 03/02/17 14:44 Magnesium Hydroxide (Milk Of Magnesia Susp) 30 ml Q12H PRN PO 01/31/17 14:45 03/02/17 14:44 Zolpidem Tartrate (Ambien Tab) 5 mg HSZ PRN PO 01/31/17 14:45 03/02/17 14:44 Ondansetron HCl (Zofran Inj) 4 mg Q6H PRN IV 01/31/17 14:45 03/02/17 14:44 Polyethylene 17 gm 17 gm DAILY PRN PO 01/31/17 14:45 03/02/17 14:44 Ertapenem/Sodium Chloride (Invanz Iv/Nss Ad-Van 50ml) 50 ml @ 120 mls/hr DAILY@1800 IV 01/31/17 18:00 02/10/17 17:59 01/31/17 18:07 120 MLS/HR Amlodipine Besylate (Norvasc Tab) 5 mg QAM PO 02/01/17 09:00 03/03/17 08:59 02/01/17 07:48 5 MG Duloxetine HCl (Cymbalta Cap) 60 mg QAM PO 02/01/17 09:00 03/03/17 08:59 02/01/17 07:47 60 MG Metoprolol Succinate (Toprol Xl Tab) 100 mg QAM PO 02/01/17 09:00 03/03/17 08:59 02/01/17 07:47 100 MG Minoxidil (Loniten Tab) 2.5 mg BID PO 01/31/17 21:00 03/02/17 20:59 02/01/17 07:46 2.5 MG Oxycodone HCl (Roxicodone Immediate Rel Tab) 5 mg QPM PO 01/31/17 21:00 02/14/17 20:59 01/31/17 21:10 5 MG Warfarin Sodium (Coumadin Tab) 0.5 mg QPM PO 01/31/17 21:00 03/02/17 20:59 01/31/17 21:05 0.5 MG Warfarin Sodium (Coumadin Tab) 6 mg QPM PO 01/31/17 21:00 03/02/17 20:59 01/31/17 21:05 6 MG Ferrous Fumarate (Jori-Sequels Contr Rel Cap) 50 mg DAILY PO 02/01/17 09:00 03/03/17 08:59 02/01/17 07:48 50 MG Lactobacillus Acidophilus (Floranex Tab) 2 tab AC PO 01/31/17 16:00 03/02/17 15:59 02/01/17 07:49 2 TAB Terazosin HCl (Hytrin Cap) 10 mg HS PO 01/31/17 21:00 03/02/17 20:59 01/31/17 21:05 10 MG Hydralazine HCl (HydrALAZINE INJ) 20 mg Q6 PRN IV. 01/31/17 15:00 03/02/17 14:59 Pantoprazole Sodium (Protonix Tab) 40 mg QAM PO 02/01/17 09:00 03/03/17 08:59 02/01/17 07:47 40 MG Potassium Chloride (Klor-Con Tab) 20 meq BID PO 02/01/17 21:00 03/03/17 20:59 Review of Systems Constitutional: + chills, + sweats, + weakness Eyes: No worsening of vision ENT: No hearing loss Respiratory: No cough, No shortness of breath Cardiovascular: No chest pain Abdomen: + diarrhea (on and off due to chronic abx), + pain (lower abdomen/ groin) Musculoskeletal: + swelling (right knee- due to many past surgeries/past infection) Genitourinary - Male: + urinary frequency, + urinary hesitancy, + urinary retention, + urinary urgency, No dysuria Integumentary: No itch, No rash Physical Exam Date Time Temp Pulse Resp B/P Pulse Ox O2 Delivery O2 Flow Rate FiO2 02/01/17 07:52 37.3 98 22 185/98 94 Room Air 02/01/17 04:04 37.0 84 20 149/89 96 02/01/17 04:00 Room Air 02/01/17 00:47 38.4 100 01/31/17 23:59 Room Air 01/31/17 23:58 39.0 114 20 137/91 94 Room Air 01/31/17 20:00 Room Air 01/31/17 19:26 36.7 79 22 169/84 96 Room Air 01/31/17 16:29 37.3 97 20 148/80 96 Room Air 01/31/17 15:59 88 18 162/80 97 Room Air 01/31/17 15:26 93 01/31/17 13:55 88 16 130/70 97 Room Air 01/31/17 12:46 88 16 121/67 97 Room Air 01/31/17 11:23 37.5 88 18 119/73 96 Room Air General Appearance: WD/WN, no apparent distress Head: normocephalic, atraumatic Eyes: normal inspection, sclerae normal ENT: hearing grossly normal Neck: supple, trachea midline Respiratory/Chest: chest non-tender, lungs clear, normal breath sounds, no respiratory distress, no accessory muscle use Cardiovascular: regular rate, rhythm, no murmur Abdomen/GI: normal bowel sounds, non tender, soft Back: normal inspection Extremities/Musculoskelatal: + pertinent finding (right knee with moderate swelling. No warmth or erythema. Well healed surgical incision) Neurologic/Psych: alert, normal mood/affect Skin: normal color, warm/dry, no rash Laboratory Results CT SCAN OF THE ABDOMEN AND PELVIS WITHOUT CONTRAST CLINICAL HISTORY: Recurrent UTI. History of stones. History of recent lithotripsy. COMPARISON STUDY: 11/14/2016 TECHNIQUE: CT scan of the abdomen and pelvis was performed from the lung bases to the proximal femurs. Images are reviewed in the axial, sagittal, and coronal planes. IV contrast was not administered for this examination. CT DOSE: 1946.44 mGy.cm FINDINGS: Lower chest: There are small bilateral pleural effusions. There is mild bibasilar atelectasis Liver: There is a stable 8 mm hypodensity within the left hepatic lobe. There is a stable hypodensity adjacent to the gallbladder fossa possibly representing focal fat. Gallbladder: Unremarkable. Spleen: There is scattered splenic granulomas. Pancreas: There is minimal infiltration of the fat surrounding the pancreatic tail. I suspect that this is a secondary process. Adrenal glands: There is mild left adrenal gland thickening similar to the prior study. Kidneys: There is a punctate nonobstructing right renal calculus. There is bilateral perinephric stranding. No ureteral calculi are visualized. Bowel: There are no transition zones indicate bowel obstruction. There is colonic diverticulosis. No acute peridiverticular inflammatory changes are visualized. There are no findings to indicate acute appendicitis. Peritoneum: There is no intraperitoneal free air or abdominal ascites. There is a fat-containing left inguinal hernia. Vasculature: The abdominal aorta is normal in course and caliber. Adenopathy: Para-aortic lymph nodes are the upper limits of normal in size. There are mildly enlarged right inguinal lymph nodes similar to the preceding study. Pelvic viscera: The bladder, and pelvic viscera are unremarkable. Skeletal structures: No destructive osseous lesions are seen. IMPRESSION: 1. No evidence of bowel obstruction. No evidence of free air 2. Diverticulosis. No evidence of acute diverticulitis 3. Fat-containing left inguinal hernia 4. Stable right inguinal adenopathy 5. Punctate nonobstructing right renal calculus 6. No obstructing ureteral calculi identified 7. Bilateral perinephric stranding 8. Mild infiltration the fat surrounding the pancreatic tail. I suspect that this is secondary to the perinephric stranding. 9. Small bilateral pleural effusions TESTICULAR ULTRASOUND HISTORY: RIGHT HYDROCELE, PERSISTENT UTI COMPARISON: None. FINDINGS: Right testis: 4.3 x 2.9 x 2.8 cm. There are no intratesticular masses. Normal color flow. Moderate to large hydrocele measuring approximately 90 cc. The epididymis is unremarkable. Left testis: 4.2 x 2.0 x 1.9 cm. There are no intratesticular masses. Normal color flow. No hydrocele. A few cysts within the epididymal head with the largest measuring 4 mm.. Last 24 Hours Test 01/31/17 12:25 01/31/17 12:34 01/31/17 12:40 01/31/17 16:00 White Blood Count 12.94 K/uL Red Blood Count 4.47 M/uL Hemoglobin 12.8 g/dL Hematocrit 36.6 % Mean Corpuscular Volume 81.9 fL Mean Corpuscular Hemoglobin 28.6 pg Mean Corpuscular Hemoglobin Concent 35.0 g/dl Platelet Count 200 K/uL Mean Platelet Volume 9.3 fL Neutrophils (%) (Auto) 88.1 % Lymphocytes (%) (Auto) 5.4 % Monocytes (%) (Auto) 6.0 % Eosinophils (%) (Auto) 0.1 % Basophils (%) (Auto) 0.2 % Neutrophils # (Auto) 11.40 K/uL Lymphocytes # (Auto) 0.70 K/uL Monocytes # (Auto) 0.78 K/uL Eosinophils # (Auto) 0.01 K/uL Basophils # (Auto) 0.02 K/uL RDW Standard Deviation 42.3 fL RDW Coefficient of Variation 14.0 % Immature Granulocyte % (Auto) 0.2 % Immature Granulocyte # (Auto) 0.03 K/uL Erythrocyte Sedimentation Rate 42 mm/hr Prothrombin Time 21.7 SECONDS Prothromb Time International Ratio 2.0 Sodium Level 137 mmol/L Potassium Level 3.2 mmol/L Chloride Level 100 mmol/L Carbon Dioxide Level 26 mmol/L Anion Gap 11.0 mmol/L Blood Urea Nitrogen 15 mg/dl Creatinine 1.50 mg/dl Est Creatinine Clear Calc Drug Dose 72.7 ml/min Estimated GFR () 57.0 Estimated GFR (Non- 49.2 BUN/Creatinine Ratio 10.2 Random Glucose 210 mg/dl Calcium Level 8.7 mg/dl Total Bilirubin 0.8 mg/dl Aspartate Amino Transf (AST/SGOT) 10 U/L Alanine Aminotransferase (ALT/SGPT) 29 U/L Alkaline Phosphatase 66 U/L Total Protein 6.9 gm/dl Albumin 3.0 gm/dl Globulin 3.9 gm/dl Albumin/Globulin Ratio 0.8 Procalcitonin 1.29 ng/mL Urine Color DK YELLOW Urine Appearance CLOUDY Urine pH 6.0 Urine Specific [place] 1.015 Urine Protein 1+ Urine Glucose (UA) NEG Urine Ketones NEG Urine Occult Blood 3+ Urine Nitrite NEG Urine Bilirubin NEG Urine Urobilinogen NEG Urine Leukocyte Esterase LARGE Urine WBC (Auto) >30 /hpf Urine RBC (Auto) >30 /hpf Urine Hyaline Casts (Auto) 1-5 /lpf Urine Epithelial Cells (Auto) >30 /lpf Urine Bacteria (Auto) 4+ Bedside Lactic Acid Venous 2.63 mmol/L Lactic Acid Level 1.4 mmol/L Test 02/01/17 07:15 White Blood Count 10.81 K/uL Red Blood Count 4.42 M/uL Hemoglobin 12.9 g/dL Hematocrit 36.9 % Mean Corpuscular Volume 83.5 fL Mean Corpuscular Hemoglobin 29.2 pg Mean Corpuscular Hemoglobin Concent 35.0 g/dl Platelet Count 204 K/uL Mean Platelet Volume 9.2 fL Neutrophils (%) (Auto) 82.2 % Lymphocytes (%) (Auto) 6.7 % Monocytes (%) (Auto) 10.2 % Eosinophils (%) (Auto) 0.5 % Basophils (%) (Auto) 0.1 % Neutrophils # (Auto) 8.90 K/uL Lymphocytes # (Auto) 0.72 K/uL Monocytes # (Auto) 1.10 K/uL Eosinophils # (Auto) 0.05 K/uL Basophils # (Auto) 0.01 K/uL RDW Standard Deviation 43.4 fL RDW Coefficient of Variation 14.1 % Immature Granulocyte % (Auto) 0.3 % Immature Granulocyte # (Auto) 0.03 K/uL Prothrombin Time 17.4 SECONDS Prothromb Time International Ratio 1.6 Sodium Level 139 mmol/L Potassium Level 3.3 mmol/L Chloride Level 103 mmol/L Carbon Dioxide Level 27 mmol/L Anion Gap 9.0 mmol/L Blood Urea Nitrogen 13 mg/dl Creatinine 1.20 mg/dl Est Creatinine Clear Calc Drug Dose 97.7 ml/min Estimated GFR () 74.7 Estimated GFR (Non- 64.4 BUN/Creatinine Ratio 10.8 Random Glucose 137 mg/dl Calcium Level 8.7 mg/dl Magnesium Level 2.2 mg/dl Prostate Specific Antigen 1.830 ng/ml Assessment & Plan Patient with recurrent UTI's and urinary symptoms on admission. CT of abdomen/ pelvis showed bilateral perinephric stranding likely consistent with bilateral pyelonephritis. The patient did have lithotripsy completed approximately 5-6 weeks ago and is noted to have a hydrocele and also punctate right renal stone. He has history of many different organisms in his urinary tract including Enterococcus, Coag-negative staph, Staph epi, Klebsiella, and Pseudomonas. Most recently, he has had Klebsiella multiple times. He is currently on IV Ertapenem. Will change to IV Cefepime pending culture results wit history of Pseudomonas. Patient likely will need at least 2 weeks of abx therapy and may be a good candidate for rotational abx therapy. Also noted that immunoglobulin levels were checked in October and were normal. We will follow. Case reviewed and agree with above assessment , conitnue with abx pending culture results. will follow.
--- NOTE | 2017-02-01 11:44 | Urology Consultation ---
History General Date of Service: Feb 01, 2017. Chief Complaint: UTI with fever Primary Care Physician: Lynne Alvarez. Pt seen a urologist before?: Yes (Dr. Alexander) If yes, why?: recurrent UTI and nephrolithiasis History of Present Illness 61 yo male admitted to [facility] for UTI and fever. The pt reports developing fevers over the weekend as high as 102F. He is known to our service; seen by Dr. Alexander for stones and recurrent UTI. He recently finished a 30 day course of Levaquin for Klebsiella UTI last week, but reports symptom returned over the weekend. He is s/p ESWL in November. No stones visualized on post-op KUB or renal u/s this admission. He is noted to have a cysto x 2 over the past year with Dr. Alexander. Both negative. He denies any dysuria or hematuria today. Denies abdominal or back pain. Imaging Imaging: CT, Ultrasound Laboratory Last 24 Hours Test 01/31/17 12:25 01/31/17 12:34 01/31/17 12:40 01/31/17 16:00 White Blood Count 12.94 K/uL Red Blood Count 4.47 M/uL Hemoglobin 12.8 g/dL Hematocrit 36.6 % Mean Corpuscular Volume 81.9 fL Mean Corpuscular Hemoglobin 28.6 pg Mean Corpuscular Hemoglobin Concent 35.0 g/dl Platelet Count 200 K/uL Mean Platelet Volume 9.3 fL Neutrophils (%) (Auto) 88.1 % Lymphocytes (%) (Auto) 5.4 % Monocytes (%) (Auto) 6.0 % Eosinophils (%) (Auto) 0.1 % Basophils (%) (Auto) 0.2 % Neutrophils # (Auto) 11.40 K/uL Lymphocytes # (Auto) 0.70 K/uL Monocytes # (Auto) 0.78 K/uL Eosinophils # (Auto) 0.01 K/uL Basophils # (Auto) 0.02 K/uL RDW Standard Deviation 42.3 fL RDW Coefficient of Variation 14.0 % Immature Granulocyte % (Auto) 0.2 % Immature Granulocyte # (Auto) 0.03 K/uL Erythrocyte Sedimentation Rate 42 mm/hr Prothrombin Time 21.7 SECONDS Prothromb Time International Ratio 2.0 Sodium Level 137 mmol/L Potassium Level 3.2 mmol/L Chloride Level 100 mmol/L Carbon Dioxide Level 26 mmol/L Anion Gap 11.0 mmol/L Blood Urea Nitrogen 15 mg/dl Creatinine 1.50 mg/dl Est Creatinine Clear Calc Drug Dose 72.7 ml/min Estimated GFR () 57.0 Estimated GFR (Non- 49.2 BUN/Creatinine Ratio 10.2 Random Glucose 210 mg/dl Calcium Level 8.7 mg/dl Total Bilirubin 0.8 mg/dl Aspartate Amino Transf (AST/SGOT) 10 U/L Alanine Aminotransferase (ALT/SGPT) 29 U/L Alkaline Phosphatase 66 U/L Total Protein 6.9 gm/dl Albumin 3.0 gm/dl Globulin 3.9 gm/dl Albumin/Globulin Ratio 0.8 Procalcitonin 1.29 ng/mL Urine Color DK YELLOW Urine Appearance CLOUDY Urine pH 6.[address] [place] 1.015 Urine Protein 1+ Urine Glucose (UA) NEG Urine Ketones NEG Urine Occult Blood 3+ Urine Nitrite NEG Urine Bilirubin NEG Urine Urobilinogen NEG Urine Leukocyte Esterase LARGE Urine WBC (Auto) >30 /hpf Urine RBC (Auto) >30 /hpf Urine Hyaline Casts (Auto) 1-5 /lpf Urine Epithelial Cells (Auto) >30 /lpf Urine Bacteria (Auto) 4+ Bedside Lactic Acid Venous 2.63 mmol/L Lactic Acid Level 1.4 mmol/L Test 02/01/17 07:15 White Blood Count 10.81 K/uL Red Blood Count 4.42 M/uL Hemoglobin 12.9 g/dL Hematocrit 36.9 % Mean Corpuscular Volume 83.5 fL Mean Corpuscular Hemoglobin 29.2 pg Mean Corpuscular Hemoglobin Concent 35.0 g/dl Platelet Count 204 K/uL Mean Platelet Volume 9.2 fL Neutrophils (%) (Auto) 82.2 % Lymphocytes (%) (Auto) 6.7 % Monocytes (%) (Auto) 10.2 % Eosinophils (%) (Auto) 0.5 % Basophils (%) (Auto) 0.1 % Neutrophils # (Auto) 8.90 K/uL Lymphocytes # (Auto) 0.72 K/uL Monocytes # (Auto) 1.10 K/uL Eosinophils # (Auto) 0.05 K/uL Basophils # (Auto) 0.01 K/uL RDW Standard Deviation 43.4 fL RDW Coefficient of Variation 14.1 % Immature Granulocyte % (Auto) 0.3 % Immature Granulocyte # (Auto) 0.03 K/uL Prothrombin Time 17.4 SECONDS Prothromb Time International Ratio 1.6 Sodium Level 139 mmol/L Potassium Level 3.3 mmol/L Chloride Level 103 mmol/L Carbon Dioxide Level 27 mmol/L Anion Gap 9.0 mmol/L Blood Urea Nitrogen 13 mg/dl Creatinine 1.20 mg/dl Est Creatinine Clear Calc Drug Dose 97.7 ml/min Estimated GFR () 74.7 Estimated GFR (Non- 64.4 BUN/Creatinine Ratio 10.8 Random Glucose 137 mg/dl Calcium Level 8.7 mg/dl Magnesium Level 2.2 mg/dl Prostate Specific Antigen 1.830 ng/ml Hepatitis C Antibody Screen NEG Problem List Medical Problems: (1) Hypokalemia Status: Acute (2) Prostatitis Status: Acute (3) Pyelonephritis Status: Acute (4) Sepsis secondary to UTI Status: Acute Past History A Fib, arthritis, BPH, coronary artery disease, high cholesterol, hypertension, kidney stones, other (obstructive sleep apnea, stroke syndrome, hydrocele, WPW s /p ablation) Past Surgical History: appendectomy, lithotripsy, orthopedic surgery (multiple orthopedic surgery on bilateral knees, elbow, hand, and ruptured achilles tendon ), vasectomy, other (hernia repair) Family History Diabetes, heart disease Social History Hx Tobacco Use In Past Year?: No (QUIT 40 YEARS AGO) Smoking: non-smoker Alcohol: never Drug use: none Marital status: Housing status: lives with family Occupation status: disabled Immunizations History of Influenza Vaccine: No History of Pneumococcal: No History of Hepatitis B Vaccine: Unknown History of MDRO No Allergies Coded Allergies: Vancomycin (Verified Allergy, Intermediate, "My kidney's shut down", ) Medications Home Medications: Home Meds and Scripts Medications Dose Route/Sig Max Daily Dose Days Date Category Dose Instructions Coumadin (Warfarin Sod) 0.5 Mg Tab 0.5 Mg PO QPM 01/31/17 Reported TAKE WITH 6MG TABS QPM TOTAL DOSE 6.5 MG Probiotic (Probiotic Product) 1 Cap Cap 2 Cap PO AC 11/14/16 Rx Roxicodone Ir (Oxycodone HCl) 5 Mg Tab 5 Mg PO QPM 11/14/16 Reported Toprol-Xl (Metoprolol Succinate) 100 Mg Tabcr 100 Mg PO QAM 11/14/16 Reported Amlodipine Besylate 5 Mg Tab 5 Mg PO QAM 11/14/16 Reported Tylenol (Acetaminophen) 500 Mg Tab 1,000 Mg PO BID 11/14/16 Reported Iron (Ferrous Fumarate) 18 Mg Tab 18 Mg PO QAM 11/14/16 Reported Hyzaar 25MG/100MG (HCTZ/Losartan Potassium) Tab 1 Tab PO QAM 11/14/16 Reported Jantoven (Warfarin Sodium) 6 Mg Tab 6 Mg PO QPM 11/14/16 Reported TAKE WITH .5 MG TABS TOTAL DOSE 6.5 MG QPM Cymbalta (Duloxetine Hcl) 60 Mg Cap 60 Mg PO QAM 04/23/14 Reported Terazosin HCl 10 Mg Cap 10 Mg PO HS 04/23/14 Reported Minoxidil 10 Mg Tab 5 Mg PO BID 04/23/14 Reported Inpatient Medications: Current Inpatient Medications Medications (Trade) Dose Ordered Sig/Candy Route Start Time Stop Time Status Last Admin Dose Admin Sodium Chloride (Nss 1000ml) 1,000 ml @ 100 mls/hr Q10H IV 01/31/17 14:41 03/02/17 14:40 02/01/17 00:41 100 MLS/HR Acetaminophen (Tylenol Tab) 650 mg Q4H PRN PO 01/31/17 14:45 03/02/17 14:44 01/31/17 23:41 650 MG Al Hydrox/Mg Hydrox/Simethicone (Maalox Max Susp) 15 ml Q4H PRN PO 01/31/17 14:45 03/02/17 14:44 Magnesium Hydroxide (Milk Of Magnesia Susp) 30 ml Q12H PRN PO 01/31/17 14:45 03/02/17 14:44 Zolpidem Tartrate (Ambien Tab) 5 mg HSZ PRN PO 01/31/17 14:45 03/02/17 14:44 Ondansetron HCl (Zofran Inj) 4 mg Q6H PRN IV 01/31/17 14:45 03/02/17 14:44 Polyethylene (Miralax Powder Packet) 17 gm DAILY PRN PO 01/31/17 14:45 03/02/17 14:44 Amlodipine Besylate (Norvasc Tab) 5 mg QAM PO 02/01/17 09:00 03/03/17 08:59 02/01/17 07:48 5 MG Duloxetine HCl (Cymbalta Cap) 60 mg QAM PO 02/01/17 09:00 03/03/17 08:59 02/01/17 07:47 60 MG Metoprolol Succinate (Toprol Xl Tab) 100 mg QAM PO 02/01/17 09:00 03/03/17 08:59 02/01/17 07:47 100 MG Minoxidil (Loniten Tab) 2.5 mg BID PO 01/31/17 21:00 03/02/17 20:59 02/01/17 07:46 2.5 MG Oxycodone HCl (Roxicodone Immediate Rel Tab) 5 mg QPM PO 01/31/17 21:00 02/14/17 20:59 01/31/17 21:10 5 MG Warfarin Sodium (Coumadin Tab) 0.5 mg QPM PO 01/31/17 21:00 03/02/17 20:59 01/31/17 21:05 0.5 MG Warfarin Sodium (Coumadin Tab) 6 mg QPM PO 01/31/17 21:00 03/02/17 20:59 01/31/17 21:05 6 MG Ferrous Fumarate (Jori-Sequels Contr Rel Cap) 50 mg DAILY PO 02/01/17 09:00 03/03/17 08:59 02/01/17 07:48 50 MG Lactobacillus Acidophilus (Floranex Tab) 2 tab AC PO 01/31/17 16:00 03/02/17 15:59 02/01/17 07:49 2 TAB Terazosin HCl (Hytrin Cap) 10 mg HS PO 01/31/17 21:00 03/02/17 20:59 01/31/17 21:05 10 MG Hydralazine HCl (HydrALAZINE INJ) 20 mg Q6 PRN IV. 01/31/17 15:00 03/02/17 14:59 Pantoprazole Sodium (Protonix Tab) 40 mg QAM PO 02/01/17 09:00 03/03/17 08:59 02/01/17 07:47 40 MG Potassium Chloride 20 meq 20 meq BID PO 02/01/17 21:00 03/03/17 20:59 Cefepime HCl/ Dextrose (Maxipime IV/D5 100ml) 112.5 ml @ 200 mls/hr BID IV 02/01/17 11:30 02/11/17 11:29 Review of Systems Review of Systems Constitutional: + fever, No chills Eyes: No double vision Neurological: No dizzy Endocrine: No excessive thirst Gastrointestinal: No abdominal pain, No nausea, No vomiting Cardiovascular: No chest pain Respiratory: No shortness of breath Skin: No rash Musculoskeletal: + arthritis, No back pain Male : No blood in urine, No painful urination Physical Exam Vital Signs: Vital Signs Past 12 Hours Date Time Temp Pulse Resp B/P Pulse Ox O2 Delivery O2 Flow Rate FiO2 02/01/17 07:52 37.3 98 22 185/98 94 Room Air 02/01/17 04:04 37.0 84 20 149/89 96 02/01/17 04:00 Room Air 02/01/17 00:47 38.4 100 01/31/17 23:59 Room Air 01/31/17 23:58 39.0 114 20 137/91 94 Room Air Physical Exam: General Appearance: no apparent distress Eyes: bilateral eyes normal inspection ENT: hearing grossly normal Neck: no JVD Respiratory/Chest: no respiratory distress, no accessory muscle use Cardiovascular: no JVD Genitourinary - Male: Scrotum: pertinent finding (large right hydrocele) Extremities: normal inspection Neurologic/Psychiatric: alert, normal mood/affect, oriented x 3 Skin: normal color Assessment & Plan Assessment & Plan A/P: UTI with fever UC&S preliminarily positive. Continue IV abx pending culture sensitivities. Agree with decision to consult ID. Appreciate input. CT scan obtained. No evidence for ureteral stones or hydro contributing to recurrent UTIs. No evidence for prostatic abscess either. Testicular u/s obtained as well. Large hydrocele noted on exam today as well as u/s. No evidence of epididymitis. PSA noted to be normal at 1.830. Will check bladder scans to ensure he is emptying well. Thanks for the consult. Continue to follow along with primary service at this time. pt had psa of less than 2 which means acute prostatitis is less likely and ct did not show prostatic abscess or stone causing obstruction . Etiology not clear
[2017-02-01] MEDS: CEFEPIME IV 2,000 MG in DEXTROSE 5% 100ML 100 ML IV SCH ×2 (12:04→20:49)
--- NOTE | 2017-02-01 12:47 | Progress Note ---
Subjective Date of Service: Feb 01, 2017. Subjective Pt evaluation today including: conversation w/ patient, physical exam, lab review, review of studies, conversation w/ risk consultant, review of inpatient medication list Pain: no pain PO Intake: adequate Voiding: no voiding problems patient feels better this AM, had a fever last night but none since no dysuria or frequency or urgency this AM appreciate ID and urology consultations reviewed imaging and lab work today Problem List Medical Problems: (1) Hypokalemia Status: Acute (2) Prostatitis Status: Acute (3) Pyelonephritis Status: Acute (4) Sepsis secondary to UTI Status: Acute Review of Systems Constitutional: + fatigue, + fever (over night), + weakness All Other Systems: Reviewed and Negative Medications Current Inpatient Medications Medications (Trade) Dose Ordered Sig/Candy Route Start Time Stop Time Status Last Admin Dose Admin Sodium Chloride (Nss 1000ml) 1,000 ml @ 100 mls/hr Q10H IV 01/31/17 14:41 03/02/17 14:40 02/01/17 12:05 100 MLS/HR Acetaminophen (Tylenol Tab) 650 mg Q4H PRN PO 01/31/17 14:45 03/02/17 14:44 01/31/17 23:41 650 MG Al Hydrox/Mg Hydrox/Simethicone (Maalox Max Susp) 15 ml Q4H PRN PO 01/31/17 14:45 03/02/17 14:44 Magnesium Hydroxide (Milk Of Magnesia Susp) 30 ml Q12H PRN PO 01/31/17 14:45 03/02/17 14:44 Zolpidem Tartrate (Ambien Tab) 5 mg HSZ PRN PO 01/31/17 14:45 03/02/17 14:44 Ondansetron HCl (Zofran Inj) 4 mg Q6H PRN IV 01/31/17 14:45 03/02/17 14:44 Polyethylene (Miralax Powder Packet) 17 gm DAILY PRN PO 01/31/17 14:45 03/02/17 14:44 Amlodipine Besylate (Norvasc Tab) 5 mg QAM PO 02/01/17 09:00 03/03/17 08:59 02/01/17 07:48 5 MG Duloxetine HCl (Cymbalta Cap) 60 mg QAM PO 02/01/17 09:00 03/03/17 08:59 02/01/17 07:47 60 MG Metoprolol Succinate (Toprol Xl Tab) 100 mg QAM PO 02/01/17 09:00 03/03/17 08:59 02/01/17 07:47 100 MG Minoxidil (Loniten Tab) 2.5 mg BID PO 01/31/17 21:00 03/02/17 20:59 02/01/17 07:46 2.5 MG Oxycodone HCl (Roxicodone Immediate Rel Tab) 5 mg QPM PO 01/31/17 21:00 02/14/17 20:59 01/31/17 21:10 5 MG Warfarin Sodium (Coumadin Tab) 0.5 mg QPM PO 01/31/17 21:00 03/02/17 20:59 01/31/17 21:05 0.5 MG Warfarin Sodium (Coumadin Tab) 6 mg QPM PO 01/31/17 21:00 03/02/17 20:59 01/31/17 21:05 6 MG Ferrous Fumarate (Jori-Sequels Contr Rel Cap) 50 mg DAILY PO 02/01/17 09:00 03/03/17 08:59 02/01/17 07:48 50 MG Lactobacillus Acidophilus (Floranex Tab) 2 tab AC PO 01/31/17 16:00 03/02/17 15:59 02/01/17 12:04 2 TAB Terazosin HCl (Hytrin Cap) 10 mg HS PO 01/31/17 21:00 03/02/17 20:59 01/31/17 21:05 10 MG Hydralazine HCl (HydrALAZINE INJ) 20 mg Q6 PRN IV. 01/31/17 15:00 03/02/17 14:59 Pantoprazole Sodium (Protonix Tab) 40 mg QAM PO 02/01/17 09:00 03/03/17 08:59 02/01/17 07:47 40 MG Potassium Chloride 20 meq 20 meq BID PO 02/01/17 21:00 03/03/17 20:59 Cefepime HCl/ Dextrose (Maxipime IV/D5 100ml) 112.5 ml @ 200 mls/hr BID IV 02/01/17 11:30 02/11/17 11:29 02/01/17 12:04 200 MLS/HR Objective Vital Signs Date Time Temp Pulse Resp B/P Pulse Ox O2 Delivery O2 Flow Rate FiO2 02/01/17 12:00 Room Air 02/01/17 11:52 37.4 87 20 156/97 95 Room Air 02/01/17 08:00 Room Air 02/01/17 07:52 37.3 98 22 185/98 94 Room Air 02/01/17 04:04 37.0 84 20 149/89 96 02/01/17 04:00 Room Air 02/01/17 00:47 38.4 100 01/31/17 23:59 Room Air 01/31/17 23:58 39.0 114 20 137/91 94 Room Air 01/31/17 20:00 Room Air 01/31/17 19:26 36.7 79 22 169/84 96 Room Air 01/31/17 16:29 37.3 97 20 148/80 96 Room Air 01/31/17 15:59 88 18 162/80 97 Room Air 01/31/17 15:26 93 01/31/17 13:55 88 16 130/70 97 Room Air 01/31/17 12:46 88 16 121/67 97 Room Air Physical Exam General Appearance: WD/WN, no apparent distress Eyes: normal inspection, EOMI, sclerae normal ENT: normal ENT inspection, hearing grossly normal, pharynx normal Neck: supple, no adenopathy, no JVD, trachea midline Respiratory/Chest: chest non-tender, lungs clear, normal breath sounds, no respiratory distress, no accessory muscle use Cardiovascular: regular rate, rhythm, no edema, no gallop, no JVD, no murmur Abdomen: normal bowel sounds, non tender, soft, no organomegaly Extremities: normal range of motion, non-tender, normal inspection, no pedal edema, no calf tenderness Neurologic/Psychiatric: manager [place] II-XII nml as tested, no motor/sensory deficits, alert, normal mood/affect, oriented x 3 Skin: normal color, warm/dry, no rash Lymphatic: no adenopathy Laboratory Results TESTICULAR ULTRASOUND HISTORY: RIGHT HYDROCELE, PERSISTENT UTI COMPARISON: None. FINDINGS: Right testis: 4.3 x 2.9 x 2.8 cm. There are no intratesticular masses. Normal color flow. Moderate to large hydrocele measuring approximately 90 cc. The epididymis is unremarkable. Left testis: 4.2 x 2.0 x 1.9 cm. There are no intratesticular masses. Normal color flow. No hydrocele. A few cysts within the epididymal head with the largest measuring 4 mm.. IMPRESSION: 1. Moderate to large right-sided hydrocele. 2. Normal testes. CT SCAN OF THE ABDOMEN AND PELVIS WITHOUT CONTRAST CLINICAL HISTORY: Recurrent UTI. History of stones. History of recent lithotripsy. IMPRESSION: 1. No evidence of bowel obstruction. No evidence of free air 2. Diverticulosis. No evidence of acute diverticulitis 3. Fat-containing left inguinal hernia 4. Stable right inguinal adenopathy 5. Punctate nonobstructing right renal calculus 6. No obstructing ureteral calculi identified 7. Bilateral perinephric stranding 8. Mild infiltration the fat surrounding the pancreatic tail. I suspect that this is secondary to the perinephric stranding. 9. Small bilateral pleural effusions Last 24 Hours Test 01/31/17 12:34 01/31/17 12:40 01/31/17 16:00 02/01/17 07:15 Urine Color DK YELLOW Urine Appearance CLOUDY Urine pH 6.0 Urine Specific [place] 1.015 Urine Protein 1+ Urine Glucose (UA) NEG Urine Ketones NEG Urine Occult Blood 3+ Urine Nitrite NEG Urine Bilirubin NEG Urine Urobilinogen NEG Urine Leukocyte Esterase LARGE Urine WBC (Auto) >30 /hpf Urine RBC (Auto) >30 /hpf Urine Hyaline Casts (Auto) 1-5 /lpf Urine Epithelial Cells (Auto) >30 /lpf Urine Bacteria (Auto) 4+ Bedside Lactic Acid Venous 2.63 mmol/L Lactic Acid Level 1.4 mmol/L White Blood Count 10.81 K/uL Red Blood Count 4.42 M/uL Hemoglobin 12.9 g/dL Hematocrit 36.9 % Mean Corpuscular Volume 83.5 fL Mean Corpuscular Hemoglobin 29.2 pg Mean Corpuscular Hemoglobin Concent 35.0 g/dl Platelet Count 204 K/uL Mean Platelet Volume 9.2 fL Neutrophils (%) (Auto) 82.2 % Lymphocytes (%) (Auto) 6.7 % Monocytes (%) (Auto) 10.2 % Eosinophils (%) (Auto) 0.5 % Basophils (%) (Auto) 0.1 % Neutrophils # (Auto) 8.90 K/uL Lymphocytes # (Auto) 0.72 K/uL Monocytes # (Auto) 1.10 K/uL Eosinophils # (Auto) 0.05 K/uL Basophils # (Auto) 0.01 K/uL RDW Standard Deviation 43.4 fL RDW Coefficient of Variation 14.1 % Immature Granulocyte % (Auto) 0.3 % Immature Granulocyte # (Auto) 0.03 K/uL Prothrombin Time 17.4 SECONDS Prothromb Time International Ratio 1.6 Sodium Level 139 mmol/L Potassium Level 3.3 mmol/L Chloride Level 103 mmol/L Carbon Dioxide Level 27 mmol/L Anion Gap 9.0 mmol/L Blood Urea Nitrogen 13 mg/dl Creatinine 1.20 mg/dl Est Creatinine Clear Calc Drug Dose 97.7 ml/min Estimated GFR () 74.7 Estimated GFR (Non- 64.4 BUN/Creatinine Ratio 10.8 Random Glucose 137 mg/dl Calcium Level 8.7 mg/dl Magnesium Level 2.2 mg/dl Prostate Specific Antigen 1.830 ng/ml Hepatitis C Antibody Screen NEG Assessment and Plan 61 yo male with recurrent UTI with h/o Pseudomonas, Klebsiella, Staph epi, Enterococcus and has been on several long courses of antibiotics. 2 separate cystoscopies that were negative. Has had lithotripsy for stones recently. Just completed 30 days of Levaquin and developed fevers 2 days after stopping antibiotics. - UTI with severe sepsis: fever, tachycardia, leukocytosis and source is urine, organ failure is mild AGATA urine culture growing GNR, no growth in blood yet continue Cefepime per ID recommendations CT scan of Abd/pelvis with mild perinephric stranding, no stones, no urinary obstruction testicular ultrasound with right hydrocele, no epididymitis urology following overall improved today, no fevers, vitals stable - AGATA: Cr up at 1.5 yesterday, down to 1.2 today, continue fluids, hold nephrotoxins - H/o atrial fibrillation: in sinus rhythm currently, on Coumadin, continue Toprol - HTN, BPH, Depression: all chronic and stable DVT prophylaxis: Coumadin, INR 1.6, repeat tomorrow Plan: transfer to medical today, vitals stable, continue Cefepime, f/u further recommendations from ID and urology
[2017-02-01] MEDS: OXYCODONE HCL IR 5 MG TAB (IMMEDIATE RELEASE) PO SCH (20:49)
[2017-02-01] MEDS: POTASSIUM CHLORIDE 20 MEQ TABCR PO SCH (20:50)
[2017-02-01] MEDS: WARFARIN SOD 6 MG TAB PO SCH (20:51)
[2017-02-01] MEDS: WARFARIN SOD 0.5 MG TAB PO SCH (20:51)
[2017-02-02 00:13] VITALS: BP 170/72; PULSE 90; TEMP 37.6; O2SAT 94
[2017-02-02] MEDS: LACTOBACILLUS ACIDOPHILUS (FLORANEX) TAB PO SCH ×2 (06:10→11:25)
[2017-02-02 06:17] VITALS: BP 195/114; PULSE 87
[2017-02-02] MEDS: SODIUM CHLORIDE 0.9% 1000ML 1,000 ML IV SCH (06:41)
[2017-02-02 07:16] LABS: BASO % 0.3 %; BASO ABS # 0.02 K/uL (0-0.2); COMPLETE YES; IG% 0.7 %; LYMPH % 14.1 %; LYMPH ABS # 1.07 K/uL (1.2-3.4); MEAN CELL VOLUME 82.2 fL (80-100); MEAN CORPUSCULAR HEMOGLOBIN 28.2 pg (25-34); MEAN CORPUSCULAR HGB CONC 34.3 g/dl (32-36); MEAN PLATELET VOLUME 8.9 fL (7.4-10.4); MONO % 11.8 %; NEUT % 71.1 %; PLATELET COUNT 231 K/uL (130-400)
[2017-02-02 07:26] VITALS: BP 171/96; PULSE 97; TEMP 37.5; O2SAT 98
[2017-02-02 07:27] LABS: INR 1.5 (0.9-1.1); PROTHROMBIN TIME (PATIENT) 16.8 SECONDS (9.0-12.0)
[2017-02-02 07:53] LABS: BUN/CREATININE RATIO 11.1 (10-20); CALCIUM 8.4 mg/dl (8.5-10.1); CREATININE 1.2 mg/dl (0.60-1.40); POTASSIUM 3.7 mmol/L (3.5-5.1)
--- NOTE | 2017-02-02 08:05 | Progress Note ---
Subjective Date of Service: Feb 02, 2017. Subjective Pt evaluation today including: conversation w/ patient, chart review, lab review 61 yo male with recurrent UTI. Pt denies pain this morning. Denies dysuria or hematuria. Denies n/v. UC&S pending. No findings on CT scan, testicular u/s, or PSA yesterday to account for recurrent UTIs. Problem List Medical Problems: (1) Hypokalemia Status: Acute (2) Prostatitis Status: Acute (3) Pyelonephritis Status: Acute (4) Sepsis secondary to UTI Status: Acute Review of Systems Constitutional: No chills, No fever Respiratory: No shortness of breath Cardiac: No chest pain Abdomen: No nausea, No pain, No vomiting Male : No dysuria, No hematuria Heme: No abnormal bleeding/bruising Objective Vital Signs Date Time Temp Pulse Resp B/P Pulse Ox O2 Delivery O2 Flow Rate FiO2 02/02/17 07:26 37.5 97 20 171/96 98 Room Air 02/02/17 06:17 87 195/114 02/02/17 00:13 37.6 90 16 170/72 94 Room Air 02/02/17 00:00 Room Air 02/01/17 20:00 Room Air 02/01/17 16:22 37.4 78 16 169/89 97 Room Air 02/01/17 16:15 Room Air 02/01/17 16:05 Room Air 02/01/17 15:55 37.0 81 20 97 02/01/17 15:16 37.0 81 20 127/82 97 02/01/17 12:00 Room Air 02/01/17 11:52 37.4 87 20 156/97 95 Room Air Physical Exam General Appearance: no apparent distress Eyes: normal inspection ENT: hearing grossly normal Neck: no JVD Respiratory/Chest: no respiratory distress, no accessory muscle use Cardiovascular: no JVD Extremities: normal inspection Neurologic/Psychiatric: alert, normal mood/affect, oriented x 3 Skin: normal color Laboratory Results Last 24 Hours Test 02/02/17 06:50 White Blood Count 7.60 K/uL Red Blood Count 4.50 M/uL Hemoglobin 12.7 g/dL Hematocrit 37.0 % Mean Corpuscular Volume 82.2 fL Mean Corpuscular Hemoglobin 28.2 pg Mean Corpuscular Hemoglobin Concent 34.3 g/dl Platelet Count 231 K/uL Mean Platelet Volume 8.9 fL Neutrophils (%) (Auto) 71.1 % Lymphocytes (%) (Auto) 14.1 % Monocytes (%) (Auto) 11.8 % Eosinophils (%) (Auto) 2.0 % Basophils (%) (Auto) 0.3 % Neutrophils # (Auto) 5.41 K/uL Lymphocytes # (Auto) 1.07 K/uL Monocytes # (Auto) 0.90 K/uL Eosinophils # (Auto) 0.15 K/uL Basophils # (Auto) 0.02 K/uL RDW Standard Deviation 42.1 fL RDW Coefficient of Variation 13.9 % Immature Granulocyte % (Auto) 0.7 % Immature Granulocyte # (Auto) 0.05 K/uL Prothrombin Time 16.8 SECONDS Prothromb Time International Ratio 1.5 Sodium Level 144 mmol/L Potassium Level 3.7 mmol/L Chloride Level 107 mmol/L Carbon Dioxide Level 29 mmol/L Anion Gap 8.0 mmol/L Blood Urea Nitrogen 13 mg/dl Creatinine 1.20 mg/dl Est Creatinine Clear Calc Drug Dose 97.7 ml/min Estimated GFR () 74.7 Estimated GFR (Non- 64.4 BUN/Creatinine Ratio 11.1 Random Glucose 149 mg/dl Calcium Level 8.4 mg/dl Assessment and Plan A/P: UTI Continue management of UTI per ID. No evidence for cause requiring surgical intervention at this time. Pt OK for d/c home from [facility] once culture sensitivities return and he is placed on the appropriate abx. He is scheduled for f/u with Dr. Alexander on Tuesday-. Will keep f/u as scheduled. Recall PRN issues. Discharge planning: home
[2017-02-02] MEDS: AMLODIPINE BESYLATE 5 MG TAB PO SCH (09:04)
[2017-02-02] MEDS: METOPROLOL SUCC 50MG EXT REL TAB PO SCH (09:04)
[2017-02-02] MEDS: DULOXETINE HCL 60 MG CAP PO SCH (09:04)
[2017-02-02] MEDS: FERROUS FUMARATE CONTR REL CAP 65 MG CAPCR PO SCH (09:04)
[2017-02-02] MEDS: POTASSIUM CHLORIDE 20 MEQ TABCR PO SCH (09:04)
[2017-02-02] MEDS: MINOXIDIL 2.5 MG TAB PO SCH (09:04)
[2017-02-02] MEDS: PANTOprazole SOD 40 MG TAB PO SCH (09:04)
[2017-02-02] MEDS: CEFEPIME IV 2,000 MG in DEXTROSE 5% 100ML 100 ML IV SCH (09:05)
[2017-02-02] MEDS: ACETAMINOPHEN 325 MG TAB PO PRN (09:09)
[2017-02-02] MEDS ORDERED: LOSARTAN/HCTZ 50-12.5 EA TAB PO ONE (10:23)
[2017-02-02] MEDS ORDERED: CEFD1CAP14 PO ×2 (10:59→11:40)
--- NOTE | 2017-02-02 11:05 | Discharge Instructions ---
Discharge Instructions Date of Service Feb 02, 2017. Admission Reason for Admission: Recurrent UTI, Sepsis, mild AGATA Discharge Discharge Diagnosis / Problem: Klebsiella UTI, acute kidney injury (resolved) Discharge Goals Goal(s): Improve function, Specific goals (follow up with Urology and Infectious Disease) Activity Recommendations Activity Limitations: resume your previous activity Lifting Limitations: none Exercise/Sports Limitations: as tolerated May Resume Sexual Activity: when tolerated Shower/Bathe: no limitations Driving or Machine Use: no limitations . Instructions / Follow-Up Instructions / Follow-Up Medications: - OMNICEF: antibiotic for Klebsiella UTI, should take for 28 days, you will follow up with Infectious disease for further recommendations - FLAGYL (metronidazole): take one tablet three times a day, this is to treat C diff infection, take for one month - QUESTRAN: intended to lessen the frequency of your stools, can interact with other medications if taken at the same time take at least one hour prior to other medications or wait at least 6 hours after taking other medications Please continue to take Probiotics and eat yogurt to help combat effects of antibiotics C diff: you will follow up with Infectious Disease and they will discuss retesting you for eradication of the C diff infection but this would not happen until after you are done with antibiotics for your UTI FOLLOW UP - please follow up with Dr. Alexander on Wednesday 02/07 as scheduled - please call Infectious Disease for follow up with Una Maguire in 2-3 weeks , - please call for follow up with Lynne Alvarez in a few weeks after you have seen specialists Current Hospital Diet Patient's current hospital diet: AHA Diet (Heart Healthy) Discharge Diet Recommended Diet: AHA Diet (Heart Healthy) Pending Studies Studies pending at discharge: no Laboratory Results Date/Time Source Procedure Growth Status 01/31/17 12:25 Blood Blood Culture - Preliminary NO GROWTH TO DATE. Resulted 01/31/17 17:00 Nasal MRSA DNA Surveillance Screen - Final Specimen Negative for MRSA by DNA Probe Complete 01/31/17 12:34 Urine , Clean Catch Urine Culture - Final Klebsiella Pneumoniae Complete Last Resulted CBC 02/02/17 06:50 Red Blood Count 4.50, Mean Corpuscular Volume 82.2, Mean Corpuscular Hemoglobin 28.2, Mean Corpuscular Hemoglobin Concent 34.3, Mean Platelet Volume 8.9, Neutrophils (%) (Auto) 71.1, Lymphocytes (%) (Auto) 14.1, Monocytes (%) (Auto) 11.8, Eosinophils (%) (Auto) 2.0, Basophils (%) (Auto) 0.3, Neutrophils # (Auto ) 5.41, Lymphocytes # (Auto) 1.07, Monocytes # (Auto) 0.90, Eosinophils # (Auto ) 0.15, Basophils # (Auto) 0.02 Last Resulted BMP 02/02/17 06:50 Medical Emergencies . Who to Call and When: Medical Emergencies: If at any time you feel your situation is an emergency, please call 911 immediately. . Non-Emergent Contact Non-Emergency issues call your: Primary Care Provider, Urologist Call Non-Emergent contact if: you have a fever, you have any medication questions . . "Provider Documentation" section prepared by Choco Hong. VTE Core Measure Inpt VTE Proph given/why not?: Warfarin (Coumadin) [place] Drug Monitoring Program Search Results: no issues identified
--- NOTE | 2017-02-02 11:14 | Infectious Disease Progress Nt ---
Progress Note Date of Service Feb 02, 2017. Subjective Pt evaluation today including: conversation w/ patient, physical exam, chart review, lab review, review of studies, conversation w/ financial planning consultant (Dr. Hong), review of inpatient medication list WBC Count today 7.60. Creatinine stable at 1.20. Urine culture growing Klebsiella which is multi-drug resistant but showing sensitivity to Levaquin ( intermediate to Cipro) and to 3rd generation cephalosporins. The patient was previously on PO Levaquin for 51 days and discontinued about [address] of the abdomen/pelvis showed bilateral perinephric stranding. He continues to have diarrhea. All Other Systems: Reviewed and Negative Medications Current Inpatient Medications Medications (Trade) Dose Ordered Sig/Candy Route Start Time Stop Time Status Last Admin Dose Admin Acetaminophen (Tylenol Tab) 650 mg Q4H PRN PO 01/31/17 14:45 03/02/17 14:44 02/02/17 09:09 650 MG Al Hydrox/Mg Hydrox/Simethicone (Maalox Max Susp) 15 ml Q4H PRN PO 01/31/17 14:45 03/02/17 14:44 Magnesium Hydroxide (Milk Of Magnesia Susp) 30 ml Q12H PRN PO 01/31/17 14:45 03/02/17 14:44 Zolpidem Tartrate (Ambien Tab) 5 mg HSZ PRN PO 01/31/17 14:45 03/02/17 14:44 Ondansetron HCl (Zofran Inj) 4 mg Q6H PRN IV 01/31/17 14:45 03/02/17 14:44 Polyethylene (Miralax Powder Packet) 17 gm DAILY PRN PO 01/31/17 14:45 03/02/17 14:44 Amlodipine Besylate (Norvasc Tab) 5 mg QAM PO 02/01/17 09:00 03/03/17 08:59 02/02/17 09:04 5 MG Duloxetine HCl (Cymbalta Cap) 60 mg QAM PO 02/01/17 09:00 03/03/17 08:59 02/02/17 09:04 60 MG Metoprolol Succinate (Toprol Xl Tab) 100 mg QAM PO 02/01/17 09:00 03/03/17 08:59 02/02/17 09:04 100 MG Minoxidil (Loniten Tab) 2.5 mg BID PO 01/31/17 21:00 03/02/17 20:59 02/02/17 09:04 2.5 MG Oxycodone HCl (Roxicodone Immediate Rel Tab) 5 mg QPM PO 01/31/17 21:00 02/14/17 20:59 02/01/17 20:49 5 MG Warfarin Sodium (Coumadin Tab) 0.5 mg QPM PO 01/31/17 21:00 03/02/17 20:59 02/01/17 20:51 0.5 MG Warfarin Sodium (Coumadin Tab) 6 mg QPM PO 01/31/17 21:00 03/02/17 20:59 02/01/17 20:51 6 MG Ferrous Fumarate (Jori-Sequels Contr Rel Cap) 50 mg DAILY PO 02/01/17 09:00 03/03/17 08:59 02/02/17 09:04 50 MG Lactobacillus Acidophilus (Floranex Tab) 2 tab AC PO 01/31/17 16:00 03/02/17 15:59 02/02/17 06:10 2 TAB Terazosin HCl (Hytrin Cap) 10 mg HS PO 01/31/17 21:00 03/02/17 20:59 02/01/17 20:52 10 MG Hydralazine HCl (HydrALAZINE INJ) 20 mg Q6 PRN IV. 01/31/17 15:00 03/02/17 14:59 02/02/17 06:14 20 MG Pantoprazole Sodium (Protonix Tab) 40 mg QAM PO 02/01/17 09:00 03/03/17 08:59 02/02/17 09:04 40 MG Potassium Chloride 20 meq 20 meq BID PO 02/01/17 21:00 03/03/17 20:59 02/02/17 09:04 20 MEQ Cefepime HCl/ Dextrose (Maxipime IV/D5 100ml) 112.5 ml @ 200 mls/hr BID IV 02/01/17 11:30 02/11/17 11:29 02/02/17 09:05 200 MLS/HR HCTZ/Losartan Potassium (Hyzaar 50-12.5 Tab) 1 tab QAM PO 02/03/17 09:00 03/05/17 08:59 Objective Vital Signs Date Time Temp Pulse Resp B/P Pulse Ox O2 Delivery O2 Flow Rate FiO2 02/02/17 08:40 Room Air 02/02/17 07:26 37.5 97 20 171/96 98 Room Air 02/02/17 06:17 87 195/114 02/02/17 00:13 37.6 90 16 170/72 94 Room Air 02/02/17 00:00 Room Air 02/01/17 20:00 Room Air 02/01/17 16:22 37.4 78 16 169/89 97 Room Air 02/01/17 16:15 Room Air 02/01/17 16:05 Room Air 02/01/17 15:55 37.0 81 20 97 02/01/17 15:16 37.0 81 20 127/82 97 02/01/17 12:00 Room Air 02/01/17 11:52 37.4 87 20 156/97 95 Room Air Physical Exam General Appearance: WD/WN, no apparent distress Eyes: normal inspection, sclerae normal ENT: hearing grossly normal Neck: supple, trachea midline Respiratory/Chest: no respiratory distress, no accessory muscle use Cardiovascular: regular rate, rhythm Extremities: normal range of motion Neurologic/Psychiatric: alert, normal mood/affect Skin: normal color, warm/dry, no rash Laboratory Results RUN DATE: 02/02/17 [facility] PAGE 1 RUN TIME: 1056 Specimen Inquiry PATIENT: LAUREN TORIBIO LOC: ANTONY U # : [id number] AGE/SX: 61/M ROOM: 58 REG : 01/31/[address]: Choco Hong D.O. : 1955 BED: 1 DIS : STATUS: ADM IN TLOC: SPEC #: [id number] NORY: 01/31/17-123 STATUS: COMP REQ #: [id number] RECD: 01/31/17-[address]: Contreras Cantor M.D. SOURCE: BRITTNEE, CC ENTR: 01/31/17-13[address] [facility] DR: Lynne Alvarez SPDESC: Benton Alexander MD, Urology ORDERED: CULTURE URCLEAN Procedure Result Verified Site URINE CULTURE Final 02/02/17-1056 Organism 1 KLEBSIELLA PNEUMONIAE COLONY COUNT >100,000 CFU/ml SENS SENSITIVITY TO FOLLOW 1. KLEBSIELLA PNEUMONIAE Target Route Dose RX AB Cost M.I.C. IQ ------ ----- ------ -- ------ -------- - ------ TRIMET/SULFA R >2/38 AMPICILLIN/SUL R >16/8 CEFAZOLIN R >16 CEFOTAXIME S <=2 CEFTRIAXONE S <=1 CEFEPIME S <=4 CEFUROXIME R >16 IMIPENEM S <=1 GENTAMICIN S <=4 TOBRAMYCIN S <=4 AMIKACIN S <=16 CIPROFLOXACIN I 2 LEVOFLOXACIN S <=2 ERTAPENEM S <=1 NITROFURANTOIN R >64 PIP/TAZO R >64 S = SENSITIVE I = INTERMEDIATE R = RESISTANT Item Value Date Time MRSA DNA Surveillance Screen - Final Complete 01/31/17 1700 Nasal Specimen Negative for MRSA by DNA Probe Urine Culture - Preliminary Resulted 01/31/17 1234 Urine , Clean Catch Gram Negative Bacilli Blood Culture Received 01/31/17 1225 Blood Pending Blood Culture Received 01/31/17 1225 Blood Pending Urine Culture - Final Complete 01/31/17 1234 Urine , Clean Catch Klebsiella Pneumoniae Blood Culture - Preliminary Resulted 01/31/17 1225 Blood NO GROWTH TO DATE. Blood Culture - Preliminary Resulted 01/31/17 1225 Blood NO GROWTH TO DATE. Last 24 Hours Test 02/02/17 06:50 White Blood Count 7.60 K/uL Red Blood Count 4.50 M/uL Hemoglobin 12.7 g/dL Hematocrit 37.0 % Mean Corpuscular Volume 82.2 fL Mean Corpuscular Hemoglobin 28.2 pg Mean Corpuscular Hemoglobin Concent 34.3 g/dl Platelet Count 231 K/uL Mean Platelet Volume 8.9 fL Neutrophils (%) (Auto) 71.1 % Lymphocytes (%) (Auto) 14.1 % Monocytes (%) (Auto) 11.8 % Eosinophils (%) (Auto) 2.0 % Basophils (%) (Auto) 0.3 % Neutrophils # (Auto) 5.41 K/uL Lymphocytes # (Auto) 1.07 K/uL Monocytes # (Auto) 0.90 K/uL Eosinophils # (Auto) 0.15 K/uL Basophils # (Auto) 0.02 K/uL RDW Standard Deviation 42.1 fL RDW Coefficient of Variation 13.9 % Immature Granulocyte % (Auto) 0.7 % Immature Granulocyte # (Auto) 0.05 K/uL Prothrombin Time 16.8 SECONDS Prothromb Time International Ratio 1.5 Sodium Level 144 mmol/L Potassium Level 3.7 mmol/L Chloride Level 107 mmol/L Carbon Dioxide Level 29 mmol/L Anion Gap 8.0 mmol/L Blood Urea Nitrogen 13 mg/dl Creatinine 1.20 mg/dl Est Creatinine Clear Calc Drug Dose 97.7 ml/min Estimated GFR () 74.7 Estimated GFR (Non- 64.4 BUN/Creatinine Ratio 11.1 Random Glucose 149 mg/dl Calcium Level 8.4 mg/dl Assessment and Plan Patient with recurrent UTI's and urinary symptoms on admission. CT of abdomen/ pelvis showed bilateral perinephric stranding likely consistent with bilateral pyelonephritis. The patient did have lithotripsy completed approximately 5-6 weeks ago and is noted to have a hydrocele and also punctate right renal stone. Most recently, this patient has had the same or similar Klebsiella for multiple infections in a row. It is questionable whether this could be due to small right renal stone. Because the patient was recently on PO Levaquin for 51 days and there is intermediate sensitivity to Cipro, prefer not to use Levaquin. Recommended PO Cefdinir 300 mg BID x 4 weeks with history of many UTI's and questionable stone infection. We will follow this patient as an outpatient as well. Agree with checking C. Diff toxin. He is OK for D/C from ID perspective. Case reviewed and agree with above assessment.
[2017-02-02 11:27] VITALS: BP 163/103; PULSE 80
[2017-02-02] MEDS ORDERED: CHOL4POW11 PO (15:46)
[2017-02-02 15:49] VITALS: BP 150/93; PULSE 81; TEMP 37.2; O2SAT 95
[2017-02-02] MEDS ORDERED: METR-163 PO (15:55)
[2017-02-02 16:03] VITALS: BP 150/93; PULSE 81; TEMP 37.2; O2SAT 95
--- NOTE | 2017-02-03 08:03 | Discharge Summary ---
Discharge Summary Date of Service Feb 03, 2017. Discharge Summary Admission Date: Jan 31, 2017 at 14:50 Discharge Date: Feb 02, 2017 Discharge Disposition: Home Principal Diagnosis: Klebsiella UTI Problems/Secondary Diagnoses: C diff colitis with diarrhea Sepsis, resolved Mild AGATA Immunizations: Have You Had Influenza Vaccine: No History of Pneumococcal: No History of Hepatitis B Vaccine: Unknown Procedures: CT abdomen/pelvis - no abnormalities Consultations: Urology Infectious Disease Medication Reconciliation New Medications: Cefdinir (Omnicef) 300 Mg Cap 300 MG PO Q12H for 28 Days, #56 CAP Cholestyramine (Questran) 4 Gm Pow 4 GM PO BID for 10 Days, #1 BTL 1 Refill Metronidazole (Flagyl) 500 Mg Tab 500 MG PO TID for 28 Days, #84 TAB Continued Medications: Acetaminophen (Tylenol) 500 Mg Tab 1000 MG PO BID, TAB Amlodipine Besylate (Amlodipine Besylate) 5 Mg Tab 5 MG PO QAM Duloxetine Hcl (Cymbalta) 60 Mg Cap 60 MG PO QAM, CAP Ferrous Fumarate (Iron) 18 Mg Tab 18 MG PO QAM Hctz/Losartan (Hyzaar 25MG/100MG) Tab 1 TAB PO QAM, TAB Metoprolol Succ (Toprol Xl) (Toprol-Xl ) 100 Mg Tabcr 100 MG PO QAM, TAB Minoxidil (Minoxidil) 10 Mg Tab 5 MG PO BID, TAB Oxycodone Ir (Roxicodone Ir) 5 Mg Tab 5 MG PO QPM, TAB Probiotic Product (Probiotic) 1 Cap Cap 2 CAP PO AC, #90 TAB Terazosin HCl (Terazosin HCl) 10 Mg Cap 10 MG PO HS Warfarin Sod (Jantoven) 6 Mg Tab 6 MG PO QPM, TAB TAKE WITH .5 MG TABS TOTAL DOSE 6.5 MG QPM Warfarin Sod (Coumadin) 0.5 Mg Tab 0.5 MG PO QPM TAKE WITH 6MG TABS QPM TOTAL DOSE 6.5 MG Discharge Exam Patient feeling well in the morning. No fevers for over 36 hours, no dysuria. Discussed results of urine culture with ID, plan for Omnicef for four weeks. Patient was c/o further diarrhea, had two loose stools in the morning. Discussed further, he had been having loose stools for months but just accepted as the norm for him due to multiple courses of antibiotics. His even added that over the past four years his stools have tended to be loose due to being on antibiotics constantly for recurrent joint infections and now recurrent UTI. Tested positive for C diff in the afternoon. Reviewed his past records, he had an issue with Vancomycin and renal failure. Opted to use Flagyl PO to treat as first line since at most he has 3-4 stools a day, no blood , no abdominal pain. Review of Systems: Constitutional: No chills, No fatigue, No fever, No problem reported, No sweats, No weakness, No weight loss Eyes: No diplopia, No discharge, No eye pain, No problem reported, No redness, No worsening of vision ENT: No dental problems, No hearing loss, No nasal symptoms, No problem reported, No sore throat, No tinnitus, No trouble swallowing, No unusual epistaxis Respiratory: No cough, No dyspnea at rest, No dyspnea on exertion, No hemoptysis, No problem reported, No shortness of breath, No sputum, No wheezing Cardiovascular: No PND, No chest pain, No claudication, No edema, No orthopnea, No palpitations, No problem reported Abdomen: + diarrhea, No GI bleeding, No constipation, No nausea, No pain, No vomiting Musculoskeletal: No calf pain, No joint pain, No muscle pain, No problem reported, No swelling Genitourinary - Male: No dysuria, No hematuria, No urinary frequency, No urinary hesitancy, No urinary retention, No urinary urgency Neurologic: No balance problems, No memory loss, No numbness/tingling, No paralysis, No problem reported, No vertigo, No weakness Psychiatric: No anhedonism, No anxiety, No depression symptoms, No insomnia , No problem reported, No substance abuse Endocrine: No excessive thirst, No excessive urination, No fatigue, No problem reported Hematologic / Lymphatic: No abnormal bleeding/bruising, No clotting problems , No night sweats, No problem reported, No swollen lymph nodes Integumentary: No bleeding, No color change, No itch, No new/changing skin lesions, No problem reported, No rash Physical Exam: General Appearance: no apparent distress, + obese Eyes: normal inspection, EOMI, sclerae normal ENT: normal ENT inspection, hearing grossly normal, pharynx normal Neck: supple, no adenopathy, no JVD, trachea midline Respiratory/Chest: chest non-tender, lungs clear, normal breath sounds, no respiratory distress, no accessory muscle use Cardiovascular: regular rate, rhythm, no edema, no gallop, no JVD, no murmur , normal peripheral pulses Abdomen / GI: normal bowel sounds, non tender, soft, no organomegaly Extremities: normal inspection, no calf tenderness, normal capillary refill , no pedal edema, normal range of motion, pelvis stable Neurologic/Psychiatric: manager cash II-XII nml as tested, no motor/sensory deficits , alert, normal mood/affect, normal reflexes, oriented x 3 Skin: normal color, warm/dry, no rash Hospital Course 61 yo male with recurrent UTI with h/o Pseudomonas, Klebsiella, Staph epi, Enterococcus and has been on several long courses of antibiotics. 2 separate cystoscopies that were negative. Has had lithotripsy for stones recently. Just completed 30 days of Levaquin and developed fevers 2 days after stopping antibiotics. - UTI with severe sepsis: fever, tachycardia, leukocytosis and source is urine, organ failure is mild AGATA sepsis resolved quickly with antibiotics and fluids, afebrile for over 36 hours urine culture growing Klebsiella, sensitive to cephalosporins and monobactams d/w ID, plan for 4 weeks of Omnicef 300mg BID, he will follow up with them in the office no growth in blood cultures to date CT scan of Abd/pelvis with mild perinephric stranding, no stones, no urinary obstruction testicular ultrasound with right hydrocele, no epididymitis urology following - patient will f/u with Dr. Alexander on 02/07 - AGATA: Cr up at 1.5 on admission, slightly higher than baseline returned to 1.2 for two days in a row after IV fluids good UO - C diff colitis: not surprising given the amount of antibiotics he has taken over the past several months and even years discussed treatment with him, he had some renal failure with Vancomycin in the past, however, PO would most likely be okay but since he only moves his bowels 3-4 times at the most, no abdominal pain, no blood, eating well, consider this mild colitis will treat with Flagyl 500mg TID, will prescribe for 4 weeks since he is going to be taking Omnicef for 4 weeks continue probiotics, prescribed Questran to try to bulk up stools he will follow up with ID in the office in 3 weeks - H/o atrial fibrillation: in sinus rhythm currently, on Coumadin, continue Toprol - HTN, BPH, Depression: all chronic and stable DVT prophylaxis: Coumadin, INR 1.5, continue 6.5mg daily and follow up with PCP for repeat INR testing as normally scheduled d/c home Total Time Spent: Greater than 30 minutes This includes examination of the patient, discharge planning, medication reconciliation, and communication with other providers. Discharge Instructions Please refer to the electronic Patient Visit Report (Discharge Instructions) for additional information. Follow-Up Dr. Benton Alexander on 02/07 Una Silva on 02/14 Lynne Alvarez in a few weeks Additional Copies To Lynne Alvarez; Una Silva ., PA-C; Benton Alexander MD, Urology
[2017-02-03] MEDS ORDERED: LOSARTAN/HCTZ 50-12.5 EA TAB PO SCH (09:00)
[2017-06-29] MEDS ORDERED: CIPR1TAB11 PO (13:04)
[2017-06-29] MEDS ORDERED: WARF2TAB8 PO (13:04)
[2017-07-24] MEDS ORDERED: MINO1TAB PO (11:28)
[2017-07-24] MEDS ORDERED: HYT/10 PO (11:28)
[2017-07-24] MEDS ORDERED: DULO60CA44 PO (12:07)
[2017-07-24] MEDS ORDERED: MULT-506 PO (13:05)
[2017-07-24] MEDS ORDERED: NRV/5 PO (14:58)
[2017-07-24] MEDS ORDERED: HYZ/10015 PO (14:58)
[2017-07-24] MEDS ORDERED: ACET-1256 PO (14:58)
== END 2017-02-02 16:35 | disposition home or self-care (01) | DRG 872 ==
LOC: ENRESERVTM → CANRESERV → ENRESERVDT → ENRESERV → C.EDB 11:22 → UNDOADMIN 14:50 → C.2T 14:50 → C.MS2W 02-01 16:17
PROVIDERS: ADMIT Hospitalist; ATTEND Internal Medicine
DX: A41.9 Sepsis, unspecified organism (principal); N39.0 Urinary tract infection, site not specified; A04.7 Enterocolitis due to Clostridium difficile; N17.9 Acute kidney failure, unspecified; I69.354 Hemiplegia and hemiparesis following cerebral infarction affecting left non-dominant side; B96.1 Klebsiella pneumoniae [K. pneumoniae] as the cause of diseases classified elsewhere; R65.20 Severe sepsis without septic shock; R01.1 Cardiac murmur, unspecified; E87.6 Hypokalemia; R32 Unspecified urinary incontinence; N43.3 Hydrocele, unspecified; N40.1 Benign prostatic hyperplasia with lower urinary tract symptoms; I48.91 Unspecified atrial fibrillation; I10 Essential (primary) hypertension; G89.29 Other chronic pain; I25.10 Atherosclerotic heart disease of native coronary artery without angina pectoris; M19.90 Unspecified osteoarthritis, unspecified site; F32.9 Major depressive disorder, single episode, unspecified; F41.9 Anxiety disorder, unspecified; G47.33 Obstructive sleep apnea (adult) (pediatric); Z98.890 Other specified postprocedural states; Z95.5 Presence of coronary angioplasty implant and graft; Z96.651 Presence of right artificial knee joint; Z87.442 Personal history of urinary calculi; Z87.891 Personal history of nicotine dependence; Z79.01 Long term (current) use of anticoagulants; Z79.891 Long term (current) use of opiate analgesic; Z79.899 Other long term (current) drug therapy; Z88.1 Allergy status to other antibiotic agents

== ENCOUNTER 2017-07-14 05:27 | Day surgery (SDC) | payer OTHER ==
[2017-06-29 13:06] VITALS: BMI 42.0
--- NOTE | 2017-06-29 13:45 | PAT Medication Instructions ---
Service Date Jun 29, 2017. Current Home Medication List Acetaminophen (Tylenol), 1,000 MG PO BID Amlodipine Besylate (Amlodipine Besylate), 5 MG PO QAM Ciprofloxacin Tab (Cipro), 500 MG PO BID Duloxetine Hcl (Cymbalta), 60 MG PO QAM Hctz/Losartan (Hyzaar 25MG/100MG), 1 TAB PO QAM Metoprolol Succ (Toprol Xl) (Toprol-Xl ), 100 MG PO QAM Minoxidil (Minoxidil), 5 MG PO BID Multivitamin (Multivitamin), 1 TAB PO BID Oxycodone Ir (Roxicodone Ir), 5 MG PO QPM Terazosin HCl (Terazosin HCl), 10 MG PO HS Warfarin Sod (Jantoven), 8 MG PO QPM Medication Instructions For Your Scheduled Surgery - Instructions per Primary physician; to hold and bridge with Lovenox: Warfarin Sod (Jantoven), 8 MG PO QPM - Hold the following medications the morning of surgery: Multivitamin (Multivitamin), 1 TAB PO BID Hctz/Losartan (Hyzaar 25MG/100MG), 1 TAB PO QAM - Take the following medications the morning of surgery with a sip of water OTHERWISE NOTHING TO EAT OR DRINK AFTER MIDNIGHT: Minoxidil (Minoxidil), 5 MG PO BID Amlodipine Besylate (Amlodipine Besylate), 5 MG PO QAM Metoprolol Succ (Toprol Xl) (Toprol-Xl ), 100 MG PO QAM Duloxetine Hcl (Cymbalta), 60 MG PO QAM Ciprofloxacin Tab (Cipro), 500 MG PO BID Acetaminophen (Tylenol), 1,000 MG PO BID (may take if needed up to 4 hours prior to surgery) - Take the following medications as scheduled the night before surgery: Oxycodone Ir (Roxicodone Ir), 5 MG PO QPM Terazosin HCl (Terazosin HCl), 10 MG PO HS Multivitamin (Multivitamin), 1 TAB PO BID Minoxidil (Minoxidil), 5 MG PO BID Amlodipine Besylate (Amlodipine Besylate), 5 MG PO QAM Metoprolol Succ (Toprol Xl) (Toprol-Xl ), 100 MG PO QAM Ciprofloxacin Tab (Cipro), 500 MG PO BID Acetaminophen (Tylenol), 1,000 MG PO BID If you have any questions please call us at [phone] or [phone] or [phone]
[2017-06-29 14:13] LABS: BASO % 0.6 %; BASO ABS # 0.04 K/uL (0-0.2); COMPLETE YES; EOS % 4.1 %; HEMATOCRIT 40.4 % (42-52); IG% 0.2 %; LYMPH % 15.9 %; LYMPH ABS # 1.01 K/uL (1.2-3.4); MEAN CORPUSCULAR HEMOGLOBIN 27.9 pg (25-34); MEAN CORPUSCULAR HGB CONC 33.2 g/dl (32-36); MEAN PLATELET VOLUME 9.6 fL (7.4-10.4); MONO % 6.3 %; NEUT % 72.9 %; PLATELET COUNT 211 K/uL (130-400); RED BLOOD COUNT 4.81 M/uL (4.7-6.1); WHITE BLOOD COUNT 6.35 K/uL (4.8-10.8)
[2017-06-29 14:16] LABS: URINE APPEARANCE CLEAR (CLEAR); URINE BILIRUBIN NEG (NEG); URINE COLOR YELLOW; URINE NITRITE NEG (NEG); URINE PH 7.5 (4.5-7.5); URINE SPECIFIC GRAVITY 1.019 (1.000-1.030); UROBILINOGEN NEG (NEG)
[2017-06-29 14:17] LABS: MANUAL MICROSCOPIC REQUIRED? NO; REVIEW REQ? NO
[2017-06-29 14:33] LABS: BUN/CREATININE RATIO 11.7 (10-20); CALCIUM 9.2 mg/dl (8.5-10.1); CREATININE 1.3 mg/dl (0.60-1.40); POTASSIUM 3.7 mmol/L (3.5-5.1)
[~2017-07-14] VITALS: Ht 190.5 cm; Wt 152.2 kg
[~2017-07-14 05:27] MED LIST changes: +CIPR1TAB11 PO; -FERR18TA2 PO; -MISCCAP80 PO; +WARF2TAB8 PO; -WARF6TAB5 PO
[2017-07-14] MEDS ORDERED: GENTAMICIN INJ 120 MG in DEXTROSE 5% 100ML 100 ML IV SCH (06:00)
[2017-07-14] MEDS ORDERED: LACTATED RINGER'S 1000ML 1,000 ML IV SCH (06:00)
[2017-07-14] MEDS ORDERED: CIPROFLOXACIN / D5W 400 MG IV SCH (06:00)
[2017-07-14 06:03] VITALS: BP 164/79; PULSE 59; TEMP 37; O2SAT 97; Ht 190.5 cm; Wt 152.2 kg
[2017-07-14 06:27] LABS: INR 1.2 (0.9-1.1); PARTIAL THROMBOPLASTIN RATIO 1.2; PROTHROMBIN TIME (PATIENT) 13.3 SECONDS (9.0-12.0)
[2017-07-14] MEDS ORDERED: FENTANYL CITRATE INJ 50 MCG/1 ML 2 ML VIAL ONE ×2 (07:01→08:57)
[2017-07-14] MEDS ORDERED: PROPOFOL IV EMULSION 10 MG/ML 20 ML VIAL IV ONE (07:01)
[2017-07-14] MEDS ORDERED: MIDAZOLAM HCL 1 MG/ML 2ML VIAL ONE (07:01)
[2017-07-14] MEDS ORDERED: LIDOCAINE HCL 2% 2 ML VIAL (20MG/ML) ONE (07:01)
[2017-07-14] MEDS ORDERED: CONRAY 30% 150ML BOTTLE ONE (07:02)
--- NOTE | 2017-07-14 07:22 | History & Physical Bridge Note ---
H&P Re-Evaluation Bridge Note: I have examined the patient, reviewed the History & Physical and in the interval since the performance of the History & Physical I have noted the following changes of clinical significance: Possible Right Stent. No other changes noted
[2017-07-14] MEDS ORDERED: DEXAMETHASONE SOD INJ 4 MG/ML VIAL ONE (07:52)
[2017-07-14] MEDS ORDERED: EpHEDrine SULFATE 50MG/5ML SYR ONE (07:52)
[2017-07-14] MEDS ORDERED: ONDANSETRON INJ 2 MG/ML 2 ML VIAL ONE (07:52)
[2017-07-14] MEDS ORDERED: PHENYLEPHRINE 100MCG/ML 5ML SYR ONE (08:03)
[2017-07-14] MEDS ORDERED: GLYCOPYRROLATE INJ 0.2 MG/ML VIAL ONE (08:03)
[2017-07-14] MEDS ORDERED: SUCCINYLCHOLINE 100MG/5ML SYR IV ONE (08:07)
--- NOTE | 2017-07-14 08:36 | [facility] Operative Report ---
Operative Report Operative Date Jul 14, 2017. Pre-Operative Diagnosis Nephrolithiasis right Post-Operative Diagnosis Nephrolithiasis right Procedure(s) Performed Cystoscopy, Right Ureteronephroscopy, Stent placement Right Ureter, Stone basket Extraction Surgeon Core Sucker Surgeon(s) None Estimated Blood Loss 0ml Findings Small 3 mm stone in lower pole Fluids See Anes Report Specimens A. Right renal stone for Analysis. Drains 6x26 Double J Right Anesthesia GET Complication(s) None Disposition Recovery Room / PACU Description of Procedure Patient was consented and brought back to the operating room. Patient was placed under anesthesia and into the dorsal lithotomy position. A time out was completed. A 30degree Cystoscope was placed into the bladder and the entire bladder was examined. The UO's were identified. The right was cannulized with a catheter and A wire was then placed. An access sheath was then placed followed by a safety wire and replacement of the sheath. A Ureteroscope was then placed and the entire ureter and renal pelvis was examined. A small stone was identified in the lower pole. This was grasped and removed and sent for analysis. At this point, the scope was replaced and the entire area examined. The scope was removed leaving the safety wire in place. With the wire in place, it was backloaded onto the cystoscope and a 6 x26 Double J stent was placed. It was confirmed with fluoroscopy. With the stent in place, the bladder was emptied. The scope was removed. The patient was cleaned, aroused from anesthesia, and transferred to the pacu in stable condition having tolerated the procedure well with no complications. I was present and participated in all aspects of the procedure. The patient will be monitored in the PACU until transferred. I attest to the content of the Intraoperative Record and any orders documented therein. Any exceptions are noted below.
--- NOTE | 2017-07-14 08:36 | DIAGNOSTIC IMAGING REPORT ---
INTRAOPERATIVE SUPINE ABDOMEN 2 VIEWS CLINICAL HISTORY: RT CYSTO/LASER/STENT COMPARISON STUDY: 12/22/2016 FINDINGS: 2 intraoperative fluoroscopic spot images are provided for interpretation. 34 seconds of fluoroscopic time was utilized. The first image demonstrates a ureteroscope and guidewire within the region the right renal pelvis and upper pole collecting system. Second image demonstrates the proximal pigtail of a right-sided nephroureteral stent IMPRESSION: Intraoperative fluoroscopic spot images as described above. Electronically signed by: Radhames Avery M.D. 07/14/2017 8:34 AM Dictated Date/Time: 07/14/2017 8:33 AM
[2017-07-14] MEDS ORDERED: PHEN-775 PO (08:38)
[2017-07-14] MEDS ORDERED: OXYC-57 PO (08:38)
--- NOTE | 2017-07-14 08:40 | Discharge Instructions ---
Discharge Instructions Date of Service Jul 14, 2017. Admission Reason for Admission: Renal Stone Discharge Discharge Diagnosis / Problem: Right Stone Discharge Goals Goal(s): Decrease discomfort Activity Recommendations Activity Limitations: resume your previous activity Lifting Limitations: none Exercise/Sports Limitations: none Shower/Bathe: no limitations Driving or Machine Use: no limitations . Instructions / Follow-Up Instructions / Follow-Up Call with any issues. May have blood in urine. May have discomfort or bladder spasms. Plan to follow up in 5-7 days for stent removal. Antibiotics per ID order. Current Hospital Diet Hospital Diet(s): Regular Diet Discharge Diet Recommended Diet: Regular Diet Procedures Procedures Performed: Cystoscopy, Right Ureteronephroscopy, Stent placement Right Ureter, Stone basket Extraction Pending Studies Studies pending at discharge: no Medical Emergencies . Who to Call and When: Medical Emergencies: If at any time you feel your situation is an emergency, please call 911 immediately. . Non-Emergent Contact Non-Emergency issues call your: Primary Care Provider, Urologist Call Non-Emergent contact if: you have a fever, temperature is above 100.5, temperature is above 101 . . "Provider Documentation" section prepared by Herbert Thrasher,. . VTE Core Measure Inpt VTE Proph given/why not?: Karol Stack, MADISYN's
[2017-07-14] MEDS ORDERED: ATROPINE SULFATE 0.1 MG/ML 5ML SYR IV PRN (08:45)
[2017-07-14] MEDS ORDERED: ONDANSETRON INJ 2 MG/ML 2 ML VIAL IV PRN (08:45)
[2017-07-14] MEDS ORDERED: KETOROLAC TROMETHAMINE 30 MG/ML VIAL IV. PRN (08:45)
[2017-07-14] MEDS ORDERED: FENTANYL CITRATE INJ 50 MCG/1 ML 2 ML VIAL IV PRN (08:45)
[2017-07-14] MEDS ORDERED: LABETALOL HCL IV 5 MG/ML 20ML IV PRN (08:45)
[2017-07-14] MEDS ORDERED: LABETALOL HCL IV 5 MG/ML 20ML IV ONE (08:57)
[2017-07-14] MEDS ORDERED: KETOROLAC TROMETHAMINE 30 MG/ML VIAL ONE (08:57)
[2017-07-14 09:25] VITALS: BP 146/78; PULSE 63; TEMP 36.5; O2SAT 97
--- NOTE | 2017-07-14 09:49 | Anesthesiology Progress Note ---
Anesthesia Post Op Note Date & Time Jul 14, 2017 at 09:49 Vital Signs Pain Intensity: 1 Vital Signs Past 12 Hours Date Time Temp Pulse Resp B/P (MAP) Pulse Ox O2 Delivery O2 Flow Rate FiO2 07/14/17 09:16 36.5 07/14/17 09:14 71 16 07/14/17 09:14 70 16 93 07/14/17 09:10 167/87 07/14/17 09:09 67 17 95 07/14/17 09:09 66 17 07/14/17 09:05 176/84 07/14/17 09:04 63 15 07/14/17 09:04 63 15 98 07/14/17 09:00 184/81 07/14/17 08:59 76 20 07/14/17 08:59 77 20 98 07/14/17 08:55 181/86 07/14/17 08:54 76 21 07/14/17 08:54 78 21 98 07/14/17 08:50 174/88 07/14/17 08:49 77 22 98 07/14/17 08:49 77 22 07/14/17 08:48 75 20 98 07/14/17 08:48 76 20 07/14/17 08:45 169/84 07/14/17 08:43 75 19 99 07/14/17 08:43 76 19 07/14/17 08:40 157/77 07/14/17 08:38 68 23 162/78 98 07/14/17 08:38 36.2 71 12 162/78 98 Mask 10 07/14/17 08:38 68 23 07/14/17 06:03 37 59 18 164/79 (107) 97 Room Air Notes Mental Status: alert / awake / arousable, participated in evaluation Pt Amnestic to Procedure: Yes Nausea / Vomiting: adequately controlled Pain: adequately controlled Airway Patency, RR, SpO2: stable & adequate BP & HR: stable & adequate Hydration State: stable & adequate Anesthetic Complications: no major complications apparent
[2017-07-14 09:55] VITALS: BP 137/74; PULSE 73; O2SAT 93
[2017-07-14 10:25] VITALS: BP 141/74; PULSE 71; O2SAT 92
[2017-07-24] MEDS ORDERED: HYT/10 PO (11:28)
[2017-07-24] MEDS ORDERED: MINO1TAB PO (11:28)
[2017-07-24] MEDS ORDERED: DULO60CA44 PO (12:07)
[2017-07-24] MEDS ORDERED: MULT-506 PO (13:05)
[2017-07-24] MEDS ORDERED: HYZ/10015 PO (14:58)
[2017-07-24] MEDS ORDERED: ACET-1256 PO (14:58)
[2017-07-24] MEDS ORDERED: NRV/5 PO (14:58)
== END 2017-07-14 10:50 | disposition home or self-care (01) ==
LOC: C.ACU 05:27
PROVIDERS: ATTEND Urology
DX: N20.0 Calculus of kidney (principal); N40.0 Benign prostatic hyperplasia without lower urinary tract symptoms; I48.91 Unspecified atrial fibrillation; Z79.01 Long term (current) use of anticoagulants; M19.90 Unspecified osteoarthritis, unspecified site; I25.10 Atherosclerotic heart disease of native coronary artery without angina pectoris; G47.33 Obstructive sleep apnea (adult) (pediatric); Z87.440 Personal history of urinary (tract) infections; Z90.49 Acquired absence of other specified parts of digestive tract; Z82.49 Family history of ischemic heart disease and other diseases of the circulatory system; Z83.3 Family history of diabetes mellitus

== ENCOUNTER 2017-07-24 21:30 | Inpatient (IN) | payer OTHER ==
[~2017-07-24] VITALS: Ht 190.5 cm; Wt 149.0 kg
[~2017-07-24 21:30] MED LIST changes: +ACET-1256 PO; +DULO60CA44 PO; +HYT/10 PO; +HYZ/10015 PO; +MINO1TAB PO; +MULT-506 PO; +NRV/5 PO; +PHEN-775 PO
[2017-07-24] MEDS ORDERED: ONDANSETRON INJ 2 MG/ML 2 ML VIAL IV STA (21:55)
[2017-07-24] MEDS ORDERED: SODIUM CHLORIDE 0.9% 1000ML 1,000 ML IV STA (21:55)
[2017-07-24] MEDS ORDERED: MoRPHine SULFATE 4 MG/ML 1 ML CARP\\VIAL IV PRN (22:00)
[2017-07-24 22:22] LABS: BASO % 0.3 %; BASO ABS # 0.03 K/uL (0-0.2); COMPLETE YES; IG% 0.4 %; LYMPH % 11.6 %; MEAN CELL VOLUME 82.8 fL (80-100); MEAN CORPUSCULAR HEMOGLOBIN 28.3 pg (25-34); MEAN CORPUSCULAR HGB CONC 34.2 g/dl (32-36); MEAN PLATELET VOLUME 9.3 fL (7.4-10.4); MONO % 10.2 %; NEUT % 76.5 %; PLATELET COUNT 219 K/uL (130-400); RED BLOOD COUNT 4.35 M/uL (4.7-6.1); WHITE BLOOD COUNT 11.16 K/uL (4.8-10.8)
[2017-07-24] MEDS ORDERED: WARF4TAB44 PO (22:24)
[2017-07-24] MEDS ORDERED: WARF-246 PO (22:24)
[2017-07-24] MEDS ORDERED: OXYC-609 PO (22:24)
[2017-07-24] MEDS ORDERED: CIPR-255 PO (22:24)
[2017-07-24] MEDS ORDERED: TPRSR/100 PO (22:24)
--- NOTE | 2017-07-24 22:29 | DIAGNOSTIC IMAGING REPORT ---
CHEST ONE VIEW PORTABLE HISTORY: 61 years-old Male acute abdominal pain. COMPARISON: Chest radiograph 12/06/2016 TECHNIQUE: Portable upright AP view of the chest FINDINGS: Cardiac silhouette is within normal limits. There is no pneumothorax, pleural effusion, focal airspace consolidation or overt pulmonary edema. Degenerative changes involve the bilateral shoulders with subcortical cystic changes of the right humeral head. There is mild atherosclerosis of the aorta. IMPRESSION: No acute cardiopulmonary process. The above report was generated using voice recognition software. It may contain grammatical, syntax or spelling errors. Electronically signed by: Navin Ugalde M.D. 07/24/2017 10:27 PM Dictated Date/Time: 07/24/2017 10:26 PM
[2017-07-24 22:34] LABS: BUN/CREATININE RATIO 9.7 (10-20); CALCIUM 8.7 mg/dl (8.5-10.1); CREATININE 1.3 mg/dl (0.60-1.40); POTASSIUM 3.2 mmol/L (3.5-5.1)
--- NOTE | 2017-07-24 22:36 | EMERGENCY ROOM VISIT NOTE ---
History Report prepared by Debra: Saida Mixon Under the Supervision of: Dr. eTddy Howell D.O. First contact with patient: 21:47 Chief Complaint: KIDNEY STONE Stated Complaint: KIDNEY PAIN,FEVER 101+,CHILLS,KIDNEY STONE REMOVED History of Present Illness The patient is a 61 year old male who presents to the Emergency Room with complaints of a persistent fever that began this evening. He currently rates his discomfort as 3/10 in severity. The patient reports that 10 days ago he had a kidney stone removed from his right kidney, noting that he had a stent placed and that his procedure went well. He states that 1 week ago he developed right kidney pain, noting that he needed to take his prescribed Oxycodone. The patient states that he developed nausea and vomiting, but notes that it cleared up. He states that last evening he developed hematuria. The patient states that this morning he developed right flank pain and became nauseous again. He states that he took his pain medications as well. The patient states that around 1800 he developed fever and chills. He states that he took 2 Tylenol and states that when he repeated his temperature he was found to still have a fever at 2000. The patient states that he has been experiencing urinary incontinence and urgency. He denies any vomiting today. The patient states that he is currently on ciprofloxacin. He denies any tobacco or alcohol use. The patient reports a history of atrial fibrillation and hypertension. 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 Source of History: patient Onset: this evening Position: other (global) Symptom Intensity: 3/10 Quality: other (fever) Timing: other (persistent) Associated Symptoms: + chills, + nausea, + urinary symptoms (incontinence and urgency) Review of Systems See HPI for pertinent positives & negatives. A total of 10 systems reviewed and were otherwise negative. Past Medical & Surgical Medical Problems: (1) Kidney stones (2) UTI (urinary tract infection) (3) UTI, possible mild sepsis/acute kidney failure Family History No pertinent family history Social History Smoking Status: Former Smoker Marital Status: Housing Status: lives with family Occupation Status: disabled Current/Historical Medications Scheduled Acetaminophen (Tylenol), 1,000 MG PO BID Amlodipine Besylate (Amlodipine Besylate), 5 MG PO QAM Ciprofloxacin Hcl (Cipro), 500 MG PO BID Duloxetine Hcl (Cymbalta), 60 MG PO QAM Hctz/Losartan (Hyzaar 25MG/100MG), 1 TAB PO QAM Metoprolol Succinate (Metoprolol Succinate ER), 100 MG PO QAM Minoxidil (Minoxidil), 5 MG PO BID Multivitamin (Multivitamin), 1 TAB PO BID Terazosin HCl (Terazosin HCl), 10 MG PO HS Warfarin Sodium (Warfarin Sodium), 2 MG PO DAILY Warfarin Sodium (Warfarin Sodium), 5 MG PO DAILY Scheduled PRN Oxycodone HCl (Oxycodone HCl), 5 MG PO HS PRN for Pain Allergies Coded Allergies: Vancomycin (Verified Allergy, Intermediate, "My kidney's shut down", ) Physical Exam Vital Signs Date Time Temp Pulse Resp B/P (MAP) Pulse Ox O2 Delivery O2 Flow Rate FiO2 07/24/17 23:55 87 20 148/70 95 Room Air 07/24/17 22:40 87 07/24/17 21:37 37.3 73 20 174/81 95 Room Air Physical Exam GENERAL: Patient is awake, alert, very anxious appearing and uncomfortable. EYES: The conjunctivae are clear. The pupils are round and reactive. EARS, NOSE, MOUTH AND THROAT: The nose is without any evidence of any deformity. Mucous membranes are moist tongue is midline NECK: The neck is nontender and supple. RESPIRATORY: Normal respiratory effort is noted there is no evidence of wheezing rhonchi or rales CARDIOVASCULAR: Tachycardic rate with irregular rhythm, systolic murmur noted to auscultation GASTROINTESTINAL: Mildly distended but soft, no specific tenderness, guarding or rigidity. BACK: No midline tenderness noted, right CVA tenderness noted to percussion MUSCULOSKELETAL/EXTREMITIES: There is no evidence of gross deformity full range of motion is noted in the hips and shoulders SKIN: Pedal edema bilaterally, right greater than left. There is no obvious evidence of any rash. There are no petechiae, pallor or cyanosis noted. NEUROLOGIC: Patient is awake alert and oriented x3 Medical Decision & Procedures ER Provider Diagnostic Interpretation: Radiology results as stated below per my review and radiologist interpretation: CHEST ONE VIEW PORTABLE HISTORY: 61 years-old Male acute abdominal pain. COMPARISON: Chest radiograph 12/06/2016 TECHNIQUE: Portable upright AP view of the chest FINDINGS: Cardiac silhouette is within normal limits. There is no pneumothorax, pleural effusion, focal airspace consolidation or overt pulmonary edema. Degenerative changes involve the bilateral shoulders with subcortical cystic changes of the right humeral head. There is mild atherosclerosis of the aorta. IMPRESSION: No acute cardiopulmonary process. The above report was generated using voice recognition software. It may contain grammatical, syntax or spelling errors. Electronically signed by: Navin Ugalde M.D. 07/24/2017 10:27 PM Dictated Date/Time: 07/24/2017 10:26 PM ABD/PELVIS NO IV OR ORAL CONT HISTORY: 61 years-old Male acute right-sided flank pain COMPARISON: KUB 07/14/2017, CT abdomen and pelvis 02/01/2017 TECHNIQUE: Multiple axial CT images of the abdomen and pelvis were obtained without contrast. A dose lowering technique was used consistent with the principals of AMITA. FINDINGS: Subcentimeter prequel calcifications are present within the right lower lobe. There is minimal bibasilar atelectasis. There is no pneumoperitoneum. The imaged inferior cardiac chambers demonstrate coronary arterial calcifications. Nonspecific low attenuating 7 mm lesion involves the lateral left hepatic lobe, unchanged from comparison suggesting hepatic cyst.-Appearing 6 mm lesion is noted within the inferior right hepatic lobe. Scattered calcifications throughout the splenic parenchyma suggest prior granulomatous disease. Gallbladder is contracted. The pancreas and right adrenal gland are unremarkable. There is a 1.2 x 1.1 cm low attenuating left adrenal gland nodule compatible with adenoma. 1.0 cm probable cyst involves the superior pole left kidney. Punctate nonobstructing calculus involves the superior pole left kidney. Nonspecific perinephric stranding is present bilaterally. Right-sided ureteral stent is present with proximal portion within the right renal pelvis. There is apparent mild atrophy of the inferior pole left kidney. There is a probable punctate nonobstructing calculus of the inferior pole right kidney. Distal portion of the right-sided ureteral stent terminates within the urinary bladder lumen. No residual stones are seen along the course of the stent. No residual significant right-sided hydroureteronephrosis identified. Urine bladder is partially collapsed. Prostate is mildly enlarged. Fat filled left inguinal hernia is noted. Prior right inguinal hernia repair. Bilateral inguinal adenopathy is seen with index node on the right measuring 3.5 x 1.8 cm, unchanged from comparison. The abdominal aorta is normal in course and caliber. Mildly prominent right iliac lymph node is seen, 1.8 x 1.0 cm, unchanged and nonspecific. Noninflamed colonic diverticula are present. No focal bowel wall thickening or bowel obstruction identified. The appendix is not seen and may be surgically absent. Soft tissues are unremarkable. The bones are mildly demineralized. Advanced facet arthrosis involves the lower lumbar spine. Multilevel intervertebral disc space narrowing of the lumbar spine also appreciated. IMPRESSION: 1. Right-sided ureteral stent in place without associated obstructive uropathy. Nonspecific mild right greater than left perinephric inflammatory stranding is again seen without significant change from comparison study dated 02/01/2017. No postprocedural fluid collections are seen. 2. Punctate bilateral nonobstructing renal calculi. 3. Colonic diverticulosis without diverticulitis. 4. Unchanged bilateral inguinal adenopathy. 5. Fat filled left inguinal hernia. Prior right inguinal hernia repair. 6. Additional incidental findings as above. The above report was generated using voice recognition software. It may contain grammatical, syntax or spelling errors. Electronically signed by: Navin Ugalde M.D. 07/24/2017 10:49 PM Dictated Date/Time: 07/24/2017 10:37 PM Laboratory Results 07/24/17 22:10 Red Blood Count 4.35, Mean Corpuscular Volume 82.8, Mean Corpuscular Hemoglobin 28.3, Mean Corpuscular Hemoglobin Concent 34.2, Mean Platelet Volume 9.3, Neutrophils (%) (Auto) 76.5, Lymphocytes (%) (Auto) 11.6, Monocytes (%) (Auto) 10.2, Eosinophils (%) (Auto) 1.0, Basophils (%) (Auto) 0.3, Neutrophils # (Auto ) 8.53, Lymphocytes # (Auto) 1.30, Monocytes # (Auto) 1.14, Eosinophils # (Auto ) 0.11, Basophils # (Auto) 0.03 07/24/17 22:10 Test 07/24/17 22:10 07/24/17 23:10 White Blood Count 11.16 K/uL (4.8-10.8) Red Blood Count 4.35 M/uL (4.7-6.1) Hemoglobin 12.3 g/dL (14.0-18.0) Hematocrit 36.0 % (42-52) Mean Corpuscular Volume 82.8 fL (80-100) Mean Corpuscular Hemoglobin 28.3 pg (25-34) Mean Corpuscular Hemoglobin Concent 34.2 g/dl (32-36) Platelet Count 219 K/uL (130-400) Mean Platelet Volume 9.3 fL (7.4-10.4) Neutrophils (%) (Auto) 76.5 % Lymphocytes (%) (Auto) 11.6 % Monocytes (%) (Auto) 10.2 % Eosinophils (%) (Auto) 1.0 % Basophils (%) (Auto) 0.3 % Neutrophils # (Auto) 8.53 K/uL (1.4-6.5) Lymphocytes # (Auto) 1.30 K/uL (1.2-3.4) Monocytes # (Auto) 1.14 K/uL (0.11-0.59) Eosinophils # (Auto) 0.11 K/uL (0-0.5) Basophils # (Auto) 0.03 K/uL (0-0.2) RDW Standard Deviation 41.7 fL (36.4-46.3) RDW Coefficient of Variation 13.6 % (11.5-14.5) Immature Granulocyte % (Auto) 0.4 % Immature Granulocyte # (Auto) 0.05 K/uL (0.00-0.02) Prothrombin Time 15.4 SECONDS (9.0-12.0) Prothromb Time International Ratio 1.4 (0.9-1.1) Activated Partial Thromboplast Time 38.3 SECONDS (21.0-31.0) Partial Thromboplastin Ratio 1.5 Anion Gap 8.0 mmol/L (3-11) Est Creatinine Clear Calc Drug Dose 90.1 ml/min Estimated GFR () 67.8 Estimated GFR (Non- 58.5 BUN/Creatinine Ratio 9.7 (10-20) Calcium Level 8.7 mg/dl (8.5-10.1) Total Bilirubin 0.4 mg/dl (0.2-1) Direct Bilirubin 0.1 mg/dl (0-0.2) Aspartate Amino Transf (AST/SGOT) 20 U/L (15-37) Alanine Aminotransferase (ALT/SGPT) 33 U/L (12-78) Alkaline Phosphatase 83 U/L (45-117) Total Protein 6.9 gm/dl (6.4-8.2) Albumin 3.1 gm/dl (3.4-5.0) Lipase 129 U/L (73-393) Urine Color YELLOW Urine Appearance CLOUDY (CLEAR) Urine pH 5.5 (4.5-7.5) Urine Specific [place] 1.022 (1.000-1.030) Urine Protein 1+ (NEG) Urine Glucose (UA) NEG (NEG) Urine Ketones NEG (NEG) Urine Occult Blood 2+ (NEG) Urine Nitrite NEG (NEG) Urine Bilirubin NEG (NEG) Urine Urobilinogen NEG (NEG) Urine Leukocyte Esterase MODERATE (NEG) Urine WBC (Auto) >30 /hpf (0-5) Urine RBC (Auto) >30 /hpf (0-4) Urine Hyaline Casts (Auto) 5-10 /lpf (0-5) Urine Epithelial Cells (Auto) 10-20 /lpf (0-5) Urine Bacteria (Auto) NEG (NEG) Laboratory results per my review. Medications Administered Medications (Trade) Dose Ordered Sig/Candy Route Start Time Stop Time Status Last Admin Dose Admin Sodium Chloride 1,000 ml @ 999 mls/hr Q1H1M STAT IV 07/24/17 21:55 07/24/17 22:55 DC 07/24/17 21:55 999 MLS/HR Ondansetron HCl (Zofran Inj) 4 mg NOW STAT IV 07/24/17 21:55 07/24/17 21:57 DC 07/24/17 21:55 4 MG Ceftriaxone Sodium 2000 mg/ Dextrose 70 ml @ 100 mls/hr ONE STAT IV 07/24/17 23:30 07/25/17 00:11 DC 07/24/17 23:40 100 MLS/HR Al Hydroxide/Mg Hydroxide (Maalox Susp) 30 ml NOW STAT PO 07/24/17 23:31 07/24/17 23:32 DC 07/24/17 23:40 30 ML ED Course 2153: The patient was evaluated in room C6. A complete history and physical examination were performed. 2154: Ordered Zofran Inj 4 mg IV, Sodium Chloride 1000 ml @ 999 mls/hr IV. 7: I reevaluated the patient and he is resting comfortably. I discussed the exam findings with him and i discussed the treatment plan. He verbalized complete understanding and agreement. He is going to be evaluated for further treatment. Ordered Zosyn IV 4.5 gm IV. 2330: Ordered Ceftriaxone Sodium 2000 mg/Dextrose 70 ml @ 100 mls/hr IV, Maalox susp 30 ml. 2340: I discussed the patient's case [facility] She is going to evaluate the patient for further treatment. Medical Decision Differential diagnosis: Etiologies such as renal colic, appendicitis, diverticulitis, mesenteric ischemia, aortic pathology, infections, inflammatory bowel disease, PUD, biliary pathology, UTI, as well as others were entertained Nursing notes reviewed. Additional history is obtained from the patient's significant other. The patient is a 61-year-old male who has a history of urinary tract infection sepsis who also has kidney stones who presented to the emergency department for an evaluation of flank pain and reported fever. The patient had been admitted to our facility last spring for urinary sepsis. The patient at that time had a urine culture that was positive for Klebsiella. The patient was felt to be cleared of this infection and was recently seen by a urologist at our facility for kidney stones. He had a stent placed and was also placed on Cipro which she has been taking. He started to notice worsening pain as well as fever recently. He presented to the emergency department for an evaluation. The patient was treated with IV fluids. He was also given IV antibiotics. I did review the patient's most recent urine culture. The patient was reevaluated multiple times. I discussed the patient's laboratory and radiographic studies with him. He was found have an elevated white blood cell count as well as signs of urinary tract infection. The urine was sent for culture as his findings could be consistent with the indwelling stent. I discussed his case with the on-call [facility] hospitalist group. They've agreed to evaluate the patient in the emergency department for further management and disposition. Medication Reconcilliation Current Medication List: was personally reviewed by me Blood Pressure Screening Patient's blood pressure: Elevated blood pressure Blood pressure disposition: Elevated BP felt to be situational, Did not require urgent referral Consults Time Called: [phone] Consulting Physician: JACQUELINE Mayer Resident Returned Call: 2340 I discussed the patient's case with JACQUELINE Mayer Resident. She is going to evaluate the patient for further treatment. Impression Primary Impression: Pyelonephritis Additional Impressions: Infection associated with indwelling ureteral stent Right flank pain Scribe Attestation The scribe's documentation has been prepared under my direction and personally reviewed by me in its entirety. I confirm that the note above accurately reflects all work, treatment, procedures, and medical decision making performed by me. Departure Information Dispostion Being Evaluated By Hospitalist Lynne Yee (PCP) Problem Qualifiers Additional Impressions: Infection associated with indwelling ureteral stent Encounter type: initial encounter Qualified Codes: T83.592A - Infection and inflammatory reaction due to indwelling ureteral stent, initial encounter
[2017-07-24 22:37] LABS: INR 1.4 (0.9-1.1); PARTIAL THROMBOPLASTIN RATIO 1.5; PROTHROMBIN TIME (PATIENT) 15.4 SECONDS (9.0-12.0)
--- NOTE | 2017-07-24 22:50 | DIAGNOSTIC IMAGING REPORT ---
ABD/PELVIS NO IV OR ORAL CONT HISTORY: 61 years-old Male acute right-sided flank pain COMPARISON: KUB 07/14/2017, CT abdomen and pelvis 02/01/2017 TECHNIQUE: Multiple axial CT images of the abdomen and pelvis were obtained without contrast. A dose lowering technique was used consistent with the principals of AMITA. FINDINGS: Subcentimeter prequel calcifications are present within the right lower lobe. There is minimal bibasilar atelectasis. There is no pneumoperitoneum. The imaged inferior cardiac chambers demonstrate coronary arterial calcifications. Nonspecific low attenuating 7 mm lesion involves the lateral left hepatic lobe, unchanged from comparison suggesting hepatic cyst.-Appearing 6 mm lesion is noted within the inferior right hepatic lobe. Scattered calcifications throughout the splenic parenchyma suggest prior granulomatous disease. Gallbladder is contracted. The pancreas and right adrenal gland are unremarkable. There is a 1.2 x 1.1 cm low attenuating left adrenal gland nodule compatible with adenoma. 1.0 cm probable cyst involves the superior pole left kidney. Punctate nonobstructing calculus involves the superior pole left kidney. Nonspecific perinephric stranding is present bilaterally. Right-sided ureteral stent is present with proximal portion within the right renal pelvis. There is apparent mild atrophy of the inferior pole left kidney. There is a probable punctate nonobstructing calculus of the inferior pole right kidney. Distal portion of the right-sided ureteral stent terminates within the urinary bladder lumen. No residual stones are seen along the course of the stent. No residual significant right-sided hydroureteronephrosis identified. Urine bladder is partially collapsed. Prostate is mildly enlarged. Fat filled left inguinal hernia is noted. Prior right inguinal hernia repair. Bilateral inguinal adenopathy is seen with index node on the right measuring 3.5 x 1.8 cm, unchanged from comparison. The abdominal aorta is normal in course and caliber. Mildly prominent right iliac lymph node is seen, 1.8 x 1.0 cm, unchanged and nonspecific. Noninflamed colonic diverticula are present. No focal bowel wall thickening or bowel obstruction identified. The appendix is not seen and may be surgically absent. Soft tissues are unremarkable. The bones are mildly demineralized. Advanced facet arthrosis involves the lower lumbar spine. Multilevel intervertebral disc space narrowing of the lumbar spine also appreciated. IMPRESSION: 1. Right-sided ureteral stent in place without associated obstructive uropathy. Nonspecific mild right greater than left perinephric inflammatory stranding is again seen without significant change from comparison study dated 02/01/2017. No postprocedural fluid collections are seen. 2. Punctate bilateral nonobstructing renal calculi. 3. Colonic diverticulosis without diverticulitis. 4. Unchanged bilateral inguinal adenopathy. 5. Fat filled left inguinal hernia. Prior right inguinal hernia repair. 6. Additional incidental findings as above. The above report was generated using voice recognition software. It may contain grammatical, syntax or spelling errors. Electronically signed by: Navin Ugalde M.D. 07/24/2017 10:49 PM Dictated Date/Time: 07/24/2017 10:37 PM
[2017-07-24 23:25] LABS: MANUAL MICROSCOPIC REQUIRED? NO; REVIEW REQ? NO; URINE APPEARANCE CLOUDY (CLEAR); URINE BILIRUBIN NEG (NEG); URINE COLOR YELLOW; URINE NITRITE NEG (NEG); URINE PH 5.5 (4.5-7.5); URINE SPECIFIC GRAVITY 1.022 (1.000-1.030); UROBILINOGEN NEG (NEG)
[2017-07-24] MEDS ORDERED: PIPERACILLIN/TAZOBACTAM 4.5 GM/100ML D5W IV STA (23:27)
[2017-07-24] MEDS ORDERED: CEFTRIAXONE SOD INJ 2,000 MG in DEXTROSE 5% 50ML 50 ML IV STA (23:30)
[2017-07-24] MEDS ORDERED: ALUMINUM/MAGNESIUM SUSP 30 ML UDC PO STA (23:31)
[2017-07-25] MEDS ORDERED: ONDANSETRON INJ 2 MG/ML 2 ML VIAL IV PRN (01:00)
[2017-07-25] MEDS ORDERED: POLYETHYLENE (MIRALAX) 17 GM PACK PO PRN (01:00)
[2017-07-25] MEDS ORDERED: ALUMINUM/MAGNESIUM/SIMETH (MAALOX MAX) 30 ML UDC PO PRN (01:00)
[2017-07-25] MEDS ORDERED: ACETAMINOPHEN 325 MG TAB PO PRN (01:00)
--- NOTE | 2017-07-25 01:06 | History and Physical ---
History & Physical Date & Time of Service: Jul 25, 2017 at 01:03 Chief Complaint: Kidney Pain,Fever 101+,Chills,Kidney Stone Removed Primary Care Physician: Lynne Alvarez History of Present Illness Source: patient 61-year-old male with a past medical history of atrial fibrillation, WPW syndrome status post ablation 2, stroke, hypertension, recurrent urinary tract infections, kidney stones status post stent placement 10 years ago, several right knee TKA revision presented to the ER with complaints of low-grade fever with chills which started this morning. He also complains of right flank pain which started yesterday about 3/10 in severity. The patient had stents placed in his right kidney after kidney stone removal about 10 days ago and was due for stent removal on Tuesday. He is currently on Cipro 500 mg twice a day for recurrent urinary tract infections. Complains of fevers /chills that started this morning associated with right flank pain. He also had a few episodes of hematuria, increased frequency but denied any nausea and vomiting, diarrhea. Past Medical/Surgical History Medical Problems: (1) Kidney stones Status: Resolved Atrial fibrillation, WPW syndrome status post ablation, recurrent urinary tract infections, stroke, hypertension Family History No pertinent family history Social History Smoking Status: Former Smoker Smokeless Tobacco Use: No Alcohol Use: none Drug Use: none Marital Status: Housing status: lives with family Occupational Status: disabled Immunizations History of Influenza Vaccine: No History of Pneumococcal: No History of Hepatitis B Vaccine: Unknown Multi-Drug Resistant Organisms History of MDRO: No Allergies Coded Allergies: Vancomycin (Verified Allergy, Intermediate, "My kidney's shut down", ) Home Medications Scheduled Acetaminophen (Tylenol), 1,000 MG PO BID Amlodipine Besylate (Amlodipine Besylate), 5 MG PO QAM Cefdinir (Omnicef), 1 CAP PO BID Ciprofloxacin Hcl (Cipro), 500 MG PO BID Duloxetine Hcl (Cymbalta), 60 MG PO QAM Hctz/Losartan (Hyzaar 25MG/100MG), 1 TAB PO QAM Metoprolol Succinate (Metoprolol Succinate ER), 100 MG PO QAM Minoxidil (Minoxidil), 5 MG PO BID Multivitamin (Multivitamin), 1 TAB PO BID Rivaroxaban (Xarelto), 1 TAB PO DAILY Terazosin HCl (Terazosin HCl), 10 MG PO HS Warfarin Sodium (Warfarin Sodium), 2 MG PO DAILY Warfarin Sodium (Warfarin Sodium), 5 MG PO DAILY Scheduled PRN Oxycodone HCl (Oxycodone HCl), 5 MG PO HS PRN for Pain Review of Systems Constitutional: + fever, + chills Eyes: No worsening of vision ENT: No hearing loss Respiratory: No cough, No sputum, No shortness of breath Cardiovascular: No chest pain Abdomen: + pain (right flank pain), No nausea, No vomiting Musculoskeletal: No joint pain Genitourinary - Male: + hematuria, + urinary frequency Neurologic: No memory loss Psychiatric: No depression symptoms Endocrine: No fatigue Hematologic / Lymphatic: No abnormal bleeding/bruising Integumentary: No rash Physical Exam Vital Signs Date Time Temp Pulse Resp B/P (MAP) Pulse Ox O2 Delivery O2 Flow Rate FiO2 07/24/17 23:55 87 20 148/70 95 Room Air 07/24/17 22:40 87 07/24/17 21:37 37.3 73 20 174/81 95 Room Air General Appearance: WD/WN, no apparent distress Head: normocephalic Eyes: normal inspection ENT: hearing grossly normal Neck: supple Respiratory/Chest: chest non-tender, lungs clear, normal breath sounds, no respiratory distress, no accessory muscle use Cardiovascular: regular rate, rhythm Abdomen/GI: normal bowel sounds, non tender, soft Back: normal inspection, no CVA tenderness Extremities/Musculoskelatal: + pedal edema (RLE) Neurologic/Psych: alert, normal mood/affect, oriented x 3 Skin: normal color Diagnostics Laboratory Results Results Past 24 Hours Test 07/24/17 22:10 07/24/17 23:10 Range/Units White Blood Count 11.16 4.8-10.8 K/uL Red Blood Count 4.35 4.7-6.1 M/uL Hemoglobin 12.3 14.0-18.0 g/dL Hematocrit 36.0 42-52 % Mean Corpuscular Volume 82.8 80-100 fL Mean Corpuscular Hemoglobin 28.3 25-34 pg Mean Corpuscular Hemoglobin Concent 34.2 32-36 g/dl Platelet Count 219 130-400 K/uL Mean Platelet Volume 9.3 7.4-10.4 fL Neutrophils (%) (Auto) 76.5 % Lymphocytes (%) (Auto) 11.6 % Monocytes (%) (Auto) 10.2 % Eosinophils (%) (Auto) 1.0 % Basophils (%) (Auto) 0.3 % Neutrophils # (Auto) 8.53 1.4-6.5 K/uL Lymphocytes # (Auto) 1.30 1.2-3.4 K/uL Monocytes # (Auto) 1.14 0.11-0.59 K/uL Eosinophils # (Auto) 0.11 0-0.5 K/uL Basophils # (Auto) 0.03 0-0.2 K/uL RDW Standard Deviation 41.7 36.4-46.3 fL RDW Coefficient of Variation 13.6 11.5-14.5 % Immature Granulocyte % (Auto) 0.4 % Immature Granulocyte # (Auto) 0.05 0.00-0.02 K/uL Prothrombin Time 15.4 9.0-12.0 SECONDS Prothromb Time International Ratio 1.4 0.9-1.1 Activated Partial Thromboplast Time 38.3 21.0-31.0 SECONDS Partial Thromboplastin Ratio 1.5 Sodium Level 140 136-145 mmol/L Potassium Level 3.2 3.5-5.1 mmol/L Chloride Level 103 98-107 mmol/L Carbon Dioxide Level 29 21-32 mmol/L Anion Gap 8.0 3-11 mmol/L Blood Urea Nitrogen 13 7-18 mg/dl Creatinine 1.30 0.60-1.40 mg/dl Est Creatinine Clear Calc Drug Dose 90.1 ml/min Estimated GFR () 67.8 Estimated GFR (Non- 58.5 BUN/Creatinine Ratio 9.7 10-20 Random Glucose 177 70-99 mg/dl Calcium Level 8.7 8.5-10.1 mg/dl Total Bilirubin 0.4 0.2-1 mg/dl Direct Bilirubin 0.1 0-0.2 mg/dl Aspartate Amino Transf (AST/SGOT) 20 15-37 U/L Alanine Aminotransferase (ALT/SGPT) 33 12-78 U/L Alkaline Phosphatase 83 45-117 U/L Total Protein 6.9 6.4-8.2 gm/dl Albumin 3.1 3.4-5.0 gm/dl Lipase 129 73-393 U/L Urine Color YELLOW Urine Appearance CLOUDY CLEAR Urine pH 5.5 4.5-7.5 Urine Specific [place] 1.022 1.000-1.030 Urine Protein 1+ NEG Urine Glucose (UA) NEG NEG Urine Ketones NEG NEG Urine Occult Blood 2+ NEG Urine Nitrite NEG NEG Urine Bilirubin NEG NEG Urine Urobilinogen NEG NEG Urine Leukocyte Esterase MODERATE NEG Urine WBC (Auto) >30 0-5 /hpf Urine RBC (Auto) >30 0-4 /hpf Urine Hyaline Casts (Auto) 5-10 0-5 /lpf Urine Epithelial Cells (Auto) 10-20 0-5 /lpf Urine Bacteria (Auto) NEG NEG Microbiology Results 07/24/17 Urine Culture, Received Pending Diagnostic Radiology CHEST ONE VIEW PORTABLE HISTORY: 61 years-old Male acute abdominal pain. COMPARISON: Chest radiograph 12/06/2016 TECHNIQUE: Portable upright AP view of the chest FINDINGS: Cardiac silhouette is within normal limits. There is no pneumothorax, pleural effusion, focal airspace consolidation or overt pulmonary edema. Degenerative changes involve the bilateral shoulders with subcortical cystic changes of the right humeral head. There is mild atherosclerosis of the aorta. IMPRESSION: No acute cardiopulmonary process. Impression Assessment and Plan 61-year-old male with a past medical history of atrial fibrillation, WPW syndrome status post ablation 2, stroke, hypertension, recurrent urinary tract infections, kidney stones status post stent placement 10 years ago, several right knee TKA revision presented to the ER with complaints of low-grade fever with chills which started this morning along with right sided flank pain. He had undergone a stent placement in his right kidney after removal of a kidney stone and is due for removal of the stent on Tuesday. Recurrent Urinary tract infections : status post ureteral stent placement 10 days ago -CT abdomen and pelvis: Right-sided ureteral stent in place without associated obstructive uropathy. Nonspecific mild right greater than left perinephric inflammatory stranding is again seen without significant change from comparison study dated 02/01/2017. No postprocedural fluid collections are seen. - UA positive for moderate leuk esterase, more than 30 WBCs,> 30 RBCs - Urine cultures and blood cultures pending - Started on Rocephin( last cultures from January 2017 Klebsiella sensitive to ceftriaxone) - Urology consult Atrial fibrillation/stroke - Continue Toprol-XL - Uses Coumadin 7 mg daily for anticoagulation but his INR today was 1.4 - Considering a history of stroke , subtherapeutic INR and anticipated stent removal , will start him on IV heparin for anticoagulation. -Hold Coumadin Hypertension: - Continue amlodipine, Hyzaar, minoxidil and Toprol. - Consider checking renin/aldosterone Mood disorder : -continue Cymbalta: DVT prophylaxis: IV heparin Full code Disposition: Admitted to [facility] Attending Addendum: I have physically seen and examined this patient, have supervised the medical residents activities, and agree with the H&P as noted above with the following exceptions as noted. The patient presented to the emergency department with complaint of fevers and chills along with right flank pain that began the morning prior to arrival. He' s had a few episodes of hematuria and urinary frequency. The patient denies chest pain, palpitations, shortness of breath, cough, lower extremity swelling, vision change, hearing change, sore throat, sweats, weight change, fatigue, nausea, vomiting, diarrhea or constipation, blood in stool, lightheadedness, dizziness, headache, memory loss, rash, abnormal bruising or bleeding, imbalance, focal or generalized weakness, numbness or tingling in arms or legs, generalized arthralgias or myalgias, back or neck pain, night sweats, or allergy symptoms. The review of systems is otherwise negative other than for that already noted above, and at least 10 systems have been reviewed. The patient is awake, well-developed and adequately nourished, alert and oriented 3, normocephalic and atraumatic, lying in bed and in no acute distress. HEENT--PERRL, EOMI, mucous membranes and oropharynx dry. Neck--supple, no JVD or bruits, thyroid normal, trachea midline, no adenopathy. Heart--normal S1 and S2, no extra beats, no murmurs, rubs or gallops. Lungs--clear bilaterally with good air movement, no respiratory distress, no accessory muscle use. Abdomen--normal bowel sounds and soft, nontender and nondistended, no hernias or masses, no organomegaly. Extremities--no cyanosis, clubbing. 1+ bilateral pitting pedal edema. There are good distal pulses b/l. Dermatologic--normal skin turgor, normal color, warm and dry, no abnormal lymph nodes, no rash. Neurologic--cranial nerves II through XII grossly intact, motor and sensory examination normal. Rheumatologic--normal range of motion, nontender, muscles and joints. Psychiatric--normal affect. Assessment and Plan: 1. Recurrent UTI/ureteral stent complication--patient be admitted to the medical surgical floor with consult to urology. Most recent urine culture from January 2017 showed Klebsiella sensitive to ceftriaxone. Place on ceftriaxone [address] on IV fluids. Nothing by mouth after midnight 2. Atrial fibrillation/hypertension-- Continue amlodipine, Hyzaar, metoprolol succinate ER, minoxidil, terazosin and warfarin. . Level of Care Med/Surg Advanced Directives Existing Advance Directive: No Existing Living Will: No Existing Power of Skidder Driver: No Resuscitation Status FULL RESUSCITATION VTE Prophylaxis VTE Risk Assessment Done? Y/N: Yes Risk Level: Moderate Given or contraindicated: Other Anticoagulation (IV heparin) Social Service Consult None Apply Resident Tracking Resident Involvement: Resident Care Provided Care Provided: Adult Hospital Medicine
[2017-07-25] MEDS ORDERED: HEPARIN IV LOW DOSE NO BOLUS SCH (01:19)
[2017-07-25 01:51] VITALS: BP 176/99; PULSE 82; TEMP 37; Ht 190.5 cm; Wt 149.0 kg
[2017-07-25] MEDS: HEPARIN 25,000 UNIT/500ML D5W 500 ML IV PRN ×4 (02:41→15:14)
[2017-07-25 03:30] VITALS: BP 131/71; PULSE 82
[2017-07-25 07:50] VITALS: BP 152/82; PULSE 64; TEMP 36.9; O2SAT 95
[2017-07-25 08:00] VITALS: O2SAT 95
--- NOTE | 2017-07-25 08:17 | Hospitalist Progress Note ---
Hospitalist Progress Note Date of Service Jul 25, 2017. (La Moore PA-C) Subjective Pt evaluation today including: conversation w/ patient, physical exam, chart review, lab review, review of studies Pain: Minimal abd pain Voiding: no voiding problems The patient was seen and examined this morning. Pt reports doing well overall. He does reports some sweats and chills overnight. He denies any blood in his urine since Tuesday. He has been eating and drinking without difficulty. Constitutional: + chills, + sweats, No fever ENT: No nasal symptoms, No sore throat, No trouble swallowing Respiratory: No cough, No shortness of breath, No dyspnea on exertion Cardiovascular: No chest pain, No palpitations Abdomen: No pain, No nausea, No vomiting, No diarrhea, No constipation Musculoskeletal: No joint pain, No muscle pain Male : No dysuria, No urinary frequency Neurologic: No weakness, No numbness/tingling Endo: No fatigue Skin: No rash, No itch (La Moore PA-C) Objective Vital Signs Date Time Temp Pulse Resp B/P (MAP) Pulse Ox O2 Delivery O2 Flow Rate FiO2 07/25/17 03:30 82 131/71 (91) 07/25/17 01:51 37.0 82 16 176/99 Room Air 07/25/17 01:50 Room Air 07/25/17 01:42 37.6 90 18 171/94 97 07/24/17 23:55 87 20 148/70 95 Room Air 07/24/17 22:40 87 07/24/17 21:37 37.3 73 20 174/81 95 Room Air (La Moore PA-C) Physical Exam General Appearance: WD/WN, no apparent distress, + obese Eyes: PERRL, EOMI ENT: hearing grossly normal, pharynx normal Neck: supple, no JVD Respiratory/Chest: lungs clear, no respiratory distress, no accessory muscle use Cardiovascular: regular rate, rhythm, + systolic murmur (grade II/, heard best at LSB 2nd ICS) Abdomen: normal bowel sounds, non tender, soft Extremities: non-tender, + pedal edema (LLE 2+ pitting edema and much more swollen than the RLE. +chronic venous stasis changes over RLE. ) Neurologic/Psychiatric: alert, normal mood/affect, oriented x 3 Skin: normal color, + diaphoresis (La Moore, ADELA) Laboratory Results Last 24 Hours Test 07/24/17 22:10 07/24/17 23:10 07/25/17 04:44 07/25/17 05:58 White Blood Count 11.16 K/uL Red Blood Count 4.35 M/uL Hemoglobin 12.3 g/dL Hematocrit 36.0 % Mean Corpuscular Volume 82.8 fL Mean Corpuscular Hemoglobin 28.3 pg Mean Corpuscular Hemoglobin Concent 34.2 g/dl Platelet Count 219 K/uL Mean Platelet Volume 9.3 fL Neutrophils (%) (Auto) 76.5 % Lymphocytes (%) (Auto) 11.6 % Monocytes (%) (Auto) 10.2 % Eosinophils (%) (Auto) 1.0 % Basophils (%) (Auto) 0.3 % Neutrophils # (Auto) 8.53 K/uL Lymphocytes # (Auto) 1.30 K/uL Monocytes # (Auto) 1.14 K/uL Eosinophils # (Auto) 0.11 K/uL Basophils # (Auto) 0.03 K/uL RDW Standard Deviation 41.7 fL RDW Coefficient of Variation 13.6 % Immature Granulocyte % (Auto) 0.4 % Immature Granulocyte # (Auto) 0.05 K/uL Prothrombin Time 15.4 SECONDS Prothromb Time International Ratio 1.4 Activated Partial Thromboplast Time 38.3 SECONDS Partial Thromboplastin Ratio 1.5 Sodium Level 140 mmol/L Potassium Level 3.2 mmol/L Chloride Level 103 mmol/L Carbon Dioxide Level 29 mmol/L Anion Gap 8.0 mmol/L Blood Urea Nitrogen 13 mg/dl Creatinine 1.30 mg/dl Est Creatinine Clear Calc Drug Dose 90.1 ml/min Estimated GFR () 67.8 Estimated GFR (Non- 58.5 BUN/Creatinine Ratio 9.7 Random Glucose 177 mg/dl Calcium Level 8.7 mg/dl Total Bilirubin 0.4 mg/dl Direct Bilirubin 0.1 mg/dl Aspartate Amino Transf (AST/SGOT) 20 U/L Alanine Aminotransferase (ALT/SGPT) 33 U/L Alkaline Phosphatase 83 U/L Total Protein 6.9 gm/dl Albumin 3.1 gm/dl Lipase 129 U/L Urine Color YELLOW Urine Appearance CLOUDY Urine pH 5.5 Urine Specific [place] 1.022 Urine Protein 1+ Urine Glucose (UA) NEG Urine Ketones NEG Urine Occult Blood 2+ Urine Nitrite NEG Urine Bilirubin NEG Urine Urobilinogen NEG Urine Leukocyte Esterase MODERATE Urine WBC (Auto) >30 /hpf Urine RBC (Auto) >30 /hpf Urine Hyaline Casts (Auto) 5-10 /lpf Urine Epithelial Cells (Auto) 10-20 /lpf Urine Bacteria (Auto) NEG (La Moore, ADELA) Assessment and Plan 61yo M with PMHx of atrial fibrillation, WPW syndrome status post ablation 2, stroke, hypertension, recurrent urinary tract infections, kidney stones status post stent placement 10 years ago, several right knee TKA revision presented to the ER with complaints of low-grade fever with chills which started this morning along with right sided flank pain. He had undergone a stent placement in his right kidney after removal of a kidney stone and is due for removal of the stent on Tuesday. Recurrent Urinary tract infections : status post ureteral stent placement on 07/14 - CT abdomen and pelvis: Right-sided ureteral stent in place without associated obstructive uropathy. Also has a 1.0 suspected cyst on the L kidney. There is nonspecific mild right greater than left perinephric inflammatory stranding is again seen without significant change from comparison study dated 02/01/2017. No postprocedural fluid collections are seen. + Punctate bilateral calculi - UA positive for moderate leuk esterase, more than 30 WBCs,> 30 RBCs - Urine culture is NGTD prelim - Follow BCx - Started on Rocephin( last cultures from January 2017 Klebsiella sensitive to ceftriaxone) - pt takes cipro 500 mg BID chronically. - Urology consulted- appreciate recs- postpone stent removal due to infection, await culture results. Then will reschedule procedure. Pt will need to hold coumadin prior to this procedure. Atrial fibrillation/stroke - Uses Coumadin 7 mg daily for anticoagulation, INR today is 1.4 -will transition back to coumadin as no procedure currently indicated with possible infectious source. Hypertension: - Continue amlodipine 10 mg daily, minoxidil 5 mg BID, and metoprolol succinate 100 mg QAM, hold [employer] ENGINE[employer] losartan/hctz 50-12.5 mg QAM and switch to losartan 50 mg only for now - Consider checking renin/aldosterone Mood disorder : -continue Cymbalta 60 mg daily DVT prophylaxis: Coumadin, teds, scds CODE STATUS: Full code Disposition: Admitted to [facility] (La Moore, ADELA) LES Physician Supervision Note: I interviewed and examined the patient. Discussed with La Moore PAC and agree with findings and plan as documented in the note. Any exceptions or clarifications are listed here: None next This patient was seen in his room with his present we discussed the fact that he has had a previous large embolic stroke and is concerned about being therapeutic on anticoagulation he previously has bridged with Lovenox therapy, he has also discussed noac medication with general internal medicine doctor. He has no further complaints or problems at this time Vital signs are stable Cardiac exam is irregularly irregular there is a very slight systolic murmur at the left upper sternal border his lungs are clear Atrial fibrillation with previous stroke the patient will be anticoagulate with Lovenox therapy twice a day, we need to discuss the timing of the removal of his ureteral stent see if we have enough time to therapeutically anticoagulate him with Coumadin therapy prior to having it held again, we'll also discuss with his general internal medicine doctor whether he may be a candidate for some the new medications. Otherwise the patient feels in good condition he and his understand our plan determine the duration of antibiotic therapy and timing of stent removal Documented By: Hal Guerrero (Hal Guerrero M.D.)
[2017-07-25 08:52] LABS: HEMATOCRIT 35.7 % (42-52); MEAN CELL VOLUME 83.2 fL (80-100); MEAN CORPUSCULAR HEMOGLOBIN 28.9 pg (25-34); MEAN CORPUSCULAR HGB CONC 34.7 g/dl (32-36); PLATELET COUNT 206 K/uL (130-400); RED BLOOD COUNT 4.29 M/uL (4.7-6.1); WHITE BLOOD COUNT 9.95 K/uL (4.8-10.8)
[2017-07-25] MEDS ORDERED: LOSARTAN/HCTZ 50-12.5 EA TAB PO SCH (09:00)
[2017-07-25 09:03] LABS: INR 1.3 (0.9-1.1); PROTHROMBIN TIME (PATIENT) 14.4 SECONDS (9.0-12.0)
[2017-07-25 09:04] LABS: PARTIAL THROMBOPLASTIN RATIO 1.6
[2017-07-25 09:17] LABS: BUN/CREATININE RATIO 8.2 (10-20); CALCIUM 8.6 mg/dl (8.5-10.1); CREATININE 1.2 mg/dl (0.60-1.40); POTASSIUM 3.2 mmol/L (3.5-5.1)
[2017-07-25] MEDS: LOSARTAN POTASSIUM 50 MG TAB PO SCH (09:22)
[2017-07-25] MEDS: DULOXETINE HCL 60 MG CAP PO SCH (09:23)
[2017-07-25] MEDS: MULTIVITAMIN TAB PO SCH ×2 (09:23→20:46)
[2017-07-25] MEDS: AMLODIPINE BESYLATE 5 MG TAB PO SCH (09:24)
[2017-07-25] MEDS: MINOXIDIL 2.5 MG TAB PO SCH ×2 (09:25→20:46)
[2017-07-25] MEDS: METOPROLOL SUCC 50MG EXT REL TAB PO SCH (09:25)
[2017-07-25 09:26] LABS: ESTIMATED AVERAGE GLUCOSE 140 mg/dl; HA1C FLAG Normal (Normal)
[2017-07-25] MEDS ORDERED: HEPARIN IV BOLUS 4,500 UNIT in SYRINGE 0 ML IV ONE (10:15)
--- NOTE | 2017-07-25 10:39 | Urology Consultation ---
History General Date of Service: Jul 25, 2017. Chief Complaint: fever and chills Primary Care Physician: Lynne Alvarez. Pt seen a urologist before?: Yes (Dr. Benton Alexander) If yes, why?: nephrolithiasis History of Present Illness 61 yo male presents to [facility] with c/o f/c. He is s/p right URS/LL on 07-[address] Alexander. The pt reports developing pain and n/v 2 days ago. He then developed f/c, and came to [facility]. He is currently afebrile. Stent appears in good position without hydro on CT on admission. White count has normalized. Cr is stable at 1.2. The pt has a hx of recurrent UTI for which he follows with ID. Suspected his stones were a contributing factor, and therefore URS/LL was planned. Imaging Imaging: CT Laboratory Last 24 Hours Test 07/24/17 22:10 07/24/17 23:10 07/25/17 08:38 White Blood Count 11.16 K/uL 9.95 K/uL Red Blood Count 4.35 M/uL 4.29 M/uL Hemoglobin 12.3 g/dL 12.4 g/dL Hematocrit 36.0 % 35.7 % Mean Corpuscular Volume 82.8 fL 83.2 fL Mean Corpuscular Hemoglobin 28.3 pg 28.9 pg Mean Corpuscular Hemoglobin Concent 34.2 g/dl 34.7 g/dl Platelet Count 219 K/uL 206 K/uL Mean Platelet Volume 9.3 fL 9.0 fL Neutrophils (%) (Auto) 76.5 % Lymphocytes (%) (Auto) 11.6 % Monocytes (%) (Auto) 10.2 % Eosinophils (%) (Auto) 1.0 % Basophils (%) (Auto) 0.3 % Neutrophils # (Auto) 8.53 K/uL Lymphocytes # (Auto) 1.30 K/uL Monocytes # (Auto) 1.14 K/uL Eosinophils # (Auto) 0.11 K/uL Basophils # (Auto) 0.03 K/uL RDW Standard Deviation 41.7 fL 41.4 fL RDW Coefficient of Variation 13.6 % 13.7 % Immature Granulocyte % (Auto) 0.4 % Immature Granulocyte # (Auto) 0.05 K/uL Prothrombin Time 15.4 SECONDS 14.4 SECONDS Prothromb Time International Ratio 1.4 1.3 Activated Partial Thromboplast Time 38.3 SECONDS 40.8 SECONDS Partial Thromboplastin Ratio 1.5 1.6 Sodium Level 140 mmol/L 141 mmol/L Potassium Level 3.2 mmol/L 3.2 mmol/L Chloride Level 103 mmol/L 103 mmol/L Carbon Dioxide Level 29 mmol/L 31 mmol/L Anion Gap 8.0 mmol/L 7.0 mmol/L Blood Urea Nitrogen 13 mg/dl 10 mg/dl Creatinine 1.30 mg/dl 1.20 mg/dl Est Creatinine Clear Calc Drug Dose 90.1 ml/min 99.6 ml/min Estimated GFR () 67.8 74.7 Estimated GFR (Non- 58.5 64.4 BUN/Creatinine Ratio 9.7 8.2 Random Glucose 177 mg/dl 146 mg/dl Calcium Level 8.7 mg/dl 8.6 mg/dl Total Bilirubin 0.4 mg/dl Direct Bilirubin 0.1 mg/dl Aspartate Amino Transf (AST/SGOT) 20 U/L Alanine Aminotransferase (ALT/SGPT) 33 U/L Alkaline Phosphatase 83 U/L Total Protein 6.9 gm/dl Albumin 3.1 gm/dl Lipase 129 U/L Urine Color YELLOW Urine Appearance CLOUDY Urine pH 5.5 Urine Specific [place] 1.022 Urine Protein 1+ Urine Glucose (UA) NEG Urine Ketones NEG Urine Occult Blood 2+ Urine Nitrite NEG Urine Bilirubin NEG Urine Urobilinogen NEG Urine Leukocyte Esterase MODERATE Urine WBC (Auto) >30 /hpf Urine RBC (Auto) >30 /hpf Urine Hyaline Casts (Auto) 5-10 /lpf Urine Epithelial Cells (Auto) 10-20 /lpf Urine Bacteria (Auto) NEG Estimated Average Glucose 140 mg/dl Hemoglobin A1c 6.5 % Problem List Medical Problems: (1) Hypokalemia Status: Acute (2) Infection associated with indwelling ureteral stent Status: Acute (3) Prostatitis Status: Acute (4) Pyelonephritis Status: Acute (5) Pyelonephritis Status: Acute (6) Right flank pain Status: Acute (7) Sepsis secondary to UTI Status: Acute Past History A Fib, arthritis, BPH, coronary artery disease, CVA/TIA/stroke, high cholesterol , hypertension, kidney stones, urinary tract infection (recurrent), other (WPW syndome) Past Surgical History: appendectomy, lithotripsy, orthopedic surgery, ureteral stent, vasectomy, other Family History No pertinent family history Social History Hx Tobacco Use In Past Year?: No Smoking: non-smoker Alcohol: never Drug use: none Marital status: Housing status: lives with family Occupation status: disabled Immunizations History of Influenza Vaccine: No History of Pneumococcal: No History of Hepatitis B Vaccine: Unknown History of MDRO No Allergies Coded Allergies: Vancomycin (Verified Allergy, Intermediate, "My kidney's shut down", ) Medications Home Medications: Home Meds and Scripts Medications Dose Route/Sig Max Daily Dose Days Date Category Dose Instructions Warfarin Sodium 5 Mg Tab 5 Mg PO DAILY 07/24/17 Reported TAKE ONE 5 MG TABLET ALONG WITH TWO 1 MG TABLETS TO EQUAL DAILY DOSE OF 7 MG OR TAKE OTHERWISE DIRECTED TO TAKE BY ANTICOAGULATION CLINIC/MD Warfarin Sodium 1 Mg Tab 2 Mg PO DAILY 07/24/17 Reported TAKE TWO 1 MG TABLETS ALONG WITH ONE 5 MG TABLET TO EQUAL DAILY DOSE OF 7 MG OR TAKE OTHERWISE DIRECTED TO TAKE BY ANTICOAGULATION CLINIC/MD Oxycodone HCl 5 Mg Tab 5 Mg PO HS PRN 07/24/17 Reported Cipro (Ciprofloxacin Hcl) 500 Mg Tab 500 Mg PO BID 07/24/17 Reported Metoprolol Succinate ER (Metoprolol Succinate) 100 Mg Tabcr 100 Mg PO QAM 07/24/17 Reported Multivitamin (Multivitamins) Tab 1 Tab PO BID 06/29/17 Reported Amlodipine Besylate 5 Mg Tab 5 Mg PO QAM 11/14/16 Reported Tylenol (Acetaminophen) 500 Mg Tab 1,000 Mg PO BID 11/14/16 Reported Hyzaar 25MG/100MG (HCTZ/Losartan Potassium) Tab 1 Tab PO QAM 11/14/16 Reported Cymbalta (Duloxetine Hcl) 60 Mg Cap 60 Mg PO QAM 04/23/14 Reported Terazosin HCl 10 Mg Cap 10 Mg PO HS 04/23/14 Reported Minoxidil 10 Mg Tab 5 Mg PO BID 04/23/14 Reported Inpatient Medications: Current Inpatient Medications Medications (Trade) Dose Ordered Sig/Candy Route Start Time Stop Time Status Last Admin Dose Admin Acetaminophen (Tylenol Tab) 650 mg Q4H PRN PO 07/25/17 01:00 08/24/17 00:59 Al Hydrox/Mg Hydrox/Simethicone (Maalox Max Susp) 15 ml Q4H PRN PO 07/25/17 01:00 08/24/17 00:59 Polyethylene (Miralax Powder Packet) 17 gm DAILY PRN PO 07/25/17 01:00 08/24/17 00:59 Ondansetron HCl (Zofran Inj) 4 mg Q6H PRN IV 07/25/17 01:00 08/24/17 00:59 Amlodipine Besylate (Norvasc Tab) 5 mg QAM PO 07/25/17 09:00 08/24/17 08:59 07/25/17 09:24 5 MG Duloxetine HCl (Cymbalta Cap) 60 mg QAM PO 07/25/17 09:00 08/24/17 08:59 07/25/17 09:23 60 MG Minoxidil (Loniten Tab) 5 mg BID PO 07/25/17 09:00 08/24/17 08:59 07/25/17 09:25 5 MG Multivitamins (Multivitamin Tab) 1 tab BID PO 07/25/17 09:00 08/24/17 08:59 07/25/17 09:23 1 TAB Oxycodone HCl (Roxicodone Immediate Rel Tab) 5 mg HS PRN PO 07/25/17 01:00 08/08/17 00:59 Metoprolol Succinate (Toprol Xl Tab) 100 mg QAM PO 07/25/17 09:00 08/24/17 08:59 07/25/17 09:25 100 MG Terazosin HCl (Hytrin Cap) 10 mg HS PO 07/25/17 21:00 08/24/17 20:59 Ceftriaxone Sodium 1 gm/ Dextrose 50 ml @ 100 mls/hr Q24H IV 07/25/17 23:00 08/02/17 23:29 Heparin Sodium/ Dextrose 500 ml @ 24 mls/hr [id number] PRN IV 07/25/17 02:30 08/24/17 02:29 07/25/17 10:20 24 MLS/HR Losartan Potassium (coZAAR TAB) 50 mg QAM PO 07/25/17 09:00 08/24/17 08:59 07/25/17 09:22 50 MG Review of Systems Review of Systems Constitutional: No fever, No chills Eyes: No double vision Neurological: No dizzy Endocrine: No excessive thirst Gastrointestinal: No abdominal pain, No nausea, No vomiting Cardiovascular: No chest pain Respiratory: No shortness of breath Skin: No rash Musculoskeletal: No back pain Male : No painful urination, No blood in urine Physical Exam Vital Signs: Vital Signs Past 12 Hours Date Time Temp Pulse Resp B/P (MAP) Pulse Ox O2 Delivery O2 Flow Rate FiO2 07/25/17 08:00 95 Room Air 07/25/17 07:50 36.9 64 18 152/82 (105) 95 Room Air 07/25/17 03:30 82 131/71 (91) 07/25/17 01:51 37.0 82 16 176/99 Room Air 07/25/17 01:50 Room Air 07/25/17 01:42 37.6 90 18 171/94 97 07/24/17 23:55 87 20 148/70 95 Room Air 07/24/17 22:40 87 Physical Exam: General Appearance: no apparent distress Eyes: bilateral eyes normal inspection ENT: hearing grossly normal Neck: no JVD Respiratory/Chest: no respiratory distress, no accessory muscle use Cardiovascular: no JVD Extremities: normal inspection Neurologic/Psychiatric: alert, normal mood/affect, oriented x 3 Skin: normal color Assessment & Plan Assessment & Plan A/P: F/c s/p right URS/LL AFVSS. ? UTI. UC&S pending. The stent appears in good position on CT. Recommend consulting ID for his recurrent UTIs. Continue IV abx pending culture sensitivities. Would recommend he remain inpatient until afebrile for 24hrs and sensitivities return. Will push back stent removal in the setting of UTI. Plan for stent removal likely next week with Dr. Alexander. Thanks for the consult. Will continue to follow along with primary service. Plan of care discussed with Dr. Alexander this morning.
[2017-07-25 15:06] VITALS: BP 156/84; PULSE 80; TEMP 37.4; O2SAT 97
[2017-07-25] MEDS: WARFARIN SOD 5 MG TAB PO SCH (17:03)
[2017-07-25] MEDS: WARFARIN SOD 2 MG TAB PO SCH (17:04)
[2017-07-25] MEDS ORDERED: ENOXAPARIN 1 MG/KG SQ SCH (17:30)
[2017-07-25 18:04] LABS: PARTIAL THROMBOPLASTIN RATIO 1.4
[2017-07-25] MEDS: ENOXAPARIN 150 MG/1ML SYR SQ SCH (19:19)
[2017-07-25] MEDS: CEFTRIAXONE SOD INJ 1 GM in DEXTROSE 5% ADD-VANTAGE 50ML 50 ML IV SCH (22:43)
[2017-07-25] MEDS: OXYCODONE HCL IR 5 MG TAB (IMMEDIATE RELEASE) PO PRN (22:49)
[2017-07-25 23:15] VITALS: BP 127/73; PULSE 82; TEMP 37.2; O2SAT 96
[2017-07-26 07:19] VITALS: BP 147/82; PULSE 80; TEMP 36.8; O2SAT 96
[2017-07-26 07:24] LABS: HEMATOCRIT 34.4 % (42-52); MEAN CELL VOLUME 84.5 fL (80-100); MEAN CORPUSCULAR HEMOGLOBIN 28.7 pg (25-34); MEAN PLATELET VOLUME 8.9 fL (7.4-10.4); PLATELET COUNT 197 K/uL (130-400); RED BLOOD COUNT 4.07 M/uL (4.7-6.1); WHITE BLOOD COUNT 8.28 K/uL (4.8-10.8)
[2017-07-26 07:36] LABS: INR 1.2 (0.9-1.1); PARTIAL THROMBOPLASTIN RATIO 1.5; PROTHROMBIN TIME (PATIENT) 12.9 SECONDS (9.0-12.0)
[2017-07-26 07:58] LABS: BUN/CREATININE RATIO 9.5 (10-20); CALCIUM 8.5 mg/dl (8.5-10.1); CREATININE 1.1 mg/dl (0.60-1.40); POTASSIUM 3.2 mmol/L (3.5-5.1)
--- NOTE | 2017-07-26 08:26 | Progress Note ---
Subjective Date of Service: Jul 26, 2017. Subjective Pt evaluation today including: conversation w/ patient, physical exam, chart review, lab review, review of inpatient medication list PO Intake: Aminata reg diet Voiding: no voiding problems, incontinence (with stent), voiding difficulty 61 yo male, well known to our service, POD#12 s/p R uscope, stone extraction and stent, admitted for presumptive UTI with chills, fevers and worsening of his irritative voiding symptoms with stent in place. He notes this has resolve or returned to baseline. He had some gross hematuria as an outpatient, not unexpected with stent in place. He has not been febrile since admission, WBC normalized, UC&S negative. Notes on admission reviewed. Problem List Medical Problems: (1) Hypokalemia Status: Acute (2) Infection associated with indwelling ureteral stent Status: Acute (3) Prostatitis Status: Acute (4) Pyelonephritis Status: Acute (5) Pyelonephritis Status: Acute (6) Right flank pain Status: Acute (7) Sepsis secondary to UTI Status: Acute Review of Systems Constitutional: + fever (see HPI) Eyes: No worsening of vision ENT: No hearing loss Respiratory: No shortness of breath, No dyspnea on exertion Cardiac: No chest pain Abdomen: No nausea, No vomiting Neurologic: No memory loss, No paralysis Skin: No new/changing skin lesions, No color change Objective Vital Signs Date Time Temp Pulse Resp B/P (MAP) Pulse Ox O2 Delivery O2 Flow Rate FiO2 07/26/17 07:19 36.8 80 16 147/82 (103) 96 Room Air 07/25/17 23:45 Room Air 07/25/17 23:15 37.2 82 18 127/73 (91) 96 Room Air 07/25/17 15:45 Room Air 07/25/17 15:06 37.4 80 18 156/84 (108) 97 Room Air Physical Exam General Appearance: no apparent distress, + obese ENT: normal ENT inspection, hearing grossly normal Neck: supple, no adenopathy Respiratory/Chest: no respiratory distress, no accessory muscle use Cardiovascular: no JVD Abdomen: non tender, soft Neurologic/Psychiatric: alert, oriented x 3 Skin: normal color Laboratory Results Last 24 Hours Test 07/25/17 08:38 07/25/17 17:27 07/26/17 06:59 White Blood Count 9.95 K/uL 8.28 K/uL Red Blood Count 4.29 M/uL 4.07 M/uL Hemoglobin 12.4 g/dL 11.7 g/dL Hematocrit 35.7 % 34.4 % Mean Corpuscular Volume 83.2 fL 84.5 fL Mean Corpuscular Hemoglobin 28.9 pg 28.7 pg Mean Corpuscular Hemoglobin Concent 34.7 g/dl 34.0 g/dl RDW Standard Deviation 41.4 fL 41.3 fL RDW Coefficient of Variation 13.7 % 13.4 % Platelet Count 206 K/uL 197 K/uL Mean Platelet Volume 9.0 fL 8.9 fL Prothrombin Time 14.4 SECONDS 12.9 SECONDS Prothromb Time International Ratio 1.3 1.2 Activated Partial Thromboplast Time 40.8 SECONDS 37.1 SECONDS 38.3 SECONDS Partial Thromboplastin Ratio 1.6 1.4 1.5 Sodium Level 141 mmol/L 141 mmol/L Potassium Level 3.2 mmol/L 3.2 mmol/L Chloride Level 103 mmol/L 105 mmol/L Carbon Dioxide Level 31 mmol/L 31 mmol/L Anion Gap 7.0 mmol/L 5.0 mmol/L Blood Urea Nitrogen 10 mg/dl 10 mg/dl Creatinine 1.20 mg/dl 1.10 mg/dl Est Creatinine Clear Calc Drug Dose 99.6 ml/min 108.6 ml/min Estimated GFR () 74.7 82.9 Estimated GFR (Non- 64.4 71.6 BUN/Creatinine Ratio 8.2 9.5 Random Glucose 146 mg/dl 141 mg/dl Estimated Average Glucose 140 mg/dl Hemoglobin A1c 6.5 % Calcium Level 8.6 mg/dl 8.5 mg/dl Assessment and Plan A/P 61 yo male with presumptive UTI after uscope, stent. Findings reviewed. UC&S negative - it is presumed due to history UTI was the cause of original fever. CT scan personally reviewed - no residual stones on right, insignificant юлия of calcium in L kidney - will not address, stent in good position without hydro. Patient was originally scheduled for stent removal today - will delay by a week to allow for current issues to resolve. Antibiotic therapy per primary / ID service. care plan discussed with patient who vocalizes understanding of the treatment plan. Thank you for allowing us to participate in this patient's acute care. Please recall our service PRN any new questions or concerns. Discharge planning: home
[2017-07-26] MEDS: LOSARTAN POTASSIUM 50 MG TAB PO SCH (09:19)
[2017-07-26] MEDS: MULTIVITAMIN TAB PO SCH ×2 (09:19→21:07)
[2017-07-26] MEDS: MINOXIDIL 2.5 MG TAB PO SCH ×2 (09:19→21:07)
[2017-07-26] MEDS: METOPROLOL SUCC 50MG EXT REL TAB PO SCH (09:20)
[2017-07-26] MEDS: DULOXETINE HCL 60 MG CAP PO SCH (09:20)
[2017-07-26] MEDS: AMLODIPINE BESYLATE 5 MG TAB PO SCH (09:21)
[2017-07-26] MEDS: ENOXAPARIN 150 MG/1ML SYR SQ SCH ×2 (09:21→21:07)
[2017-07-26] MEDS: POTASSIUM CHLORIDE 20 MEQ TABCR PO SCH ×2 (10:26→21:07)
--- NOTE | 2017-07-26 10:26 | Medical Consult ---
Consultation Date of Consultation: Jul 26, 2017. Attending Physician: Hal Guerrero M.D. Reason for Consultation: Antibiotic recommendations in setting of ongoing ciprofloxacin use History of Present Illness 61-year-old male well known to the Infectious Disease service with history of multiple E recurrent urinary tract infections, admitted in January this year with sepsis and urinary tract infection with Klebsiella. He reportedly has been treated on ongoing basis with ciprofloxacin for UTI suppression. He recently underwent ureteral stent placement, and did well for 1 week, then developed fever, chills, and flank pain associated with hematuria. He was readmitted to the hospital, and has been started on ceftriaxone and has improved significantly with decrease in pain and now currently afebrile. Urine cultures now growing Streptococcus, urinalysis shows pyuria. Has history of prior infected knee replacement, but no current symptoms reported. Past Medical/Surgical History Medical Problems: (1) Hypokalemia Status: Acute (2) Infection associated with indwelling ureteral stent Status: Acute (3) Prostatitis Status: Acute (4) Pyelonephritis Status: Acute (5) Pyelonephritis Status: Acute (6) Right flank pain Status: Acute (7) Sepsis secondary to UTI Status: Acute Medical Problems: (1) Kidney stones (2) UTI (urinary tract infection) (3) UTI, possible mild sepsis/acute kidney failure (4) knee replacements, debridements and poly exchange Family History No pertinent family history Social History Smoking Status: Former Smoker Marital Status: Housing Status: lives with family Occupation Status: disabled Allergies Coded Allergies: Vancomycin (Verified Allergy, Intermediate, "My kidney's shut down", ) Current Inpatient Medications Current Inpatient Medications Medications (Trade) Dose Ordered Sig/Candy Route Start Time Stop Time Status Last Admin Dose Admin Acetaminophen (Tylenol Tab) 650 mg Q4H PRN PO 07/25/17 01:00 08/24/17 00:59 Al Hydrox/Mg Hydrox/Simethicone (Maalox Max Susp) 15 ml Q4H PRN PO 07/25/17 01:00 08/24/17 00:59 Polyethylene (Miralax Powder Packet) 17 gm DAILY PRN PO 07/25/17 01:00 08/24/17 00:59 Ondansetron HCl (Zofran Inj) 4 mg Q6H PRN IV 07/25/17 01:00 08/24/17 00:59 Amlodipine Besylate (Norvasc Tab) 5 mg QAM PO 07/25/17 09:00 08/24/17 08:59 07/26/17 09:21 5 MG Duloxetine HCl (Cymbalta Cap) 60 mg QAM PO 07/25/17 09:00 08/24/17 08:59 07/26/17 09:20 60 MG Minoxidil (Loniten Tab) 5 mg BID PO 07/25/17 09:00 08/24/17 08:59 07/26/17 09:19 5 MG Multivitamins (Multivitamin Tab) 1 tab BID PO 07/25/17 09:00 08/24/17 08:59 07/26/17 09:19 1 TAB Oxycodone HCl (Roxicodone Immediate Rel Tab) 5 mg HS PRN PO 07/25/17 01:00 08/08/17 00:59 07/25/17 22:49 5 MG Metoprolol Succinate (Toprol Xl Tab) 100 mg QAM PO 07/25/17 09:00 08/24/17 08:59 07/26/17 09:20 100 MG Terazosin HCl (Hytrin Cap) 10 mg HS PO 07/25/17 21:00 08/24/17 20:59 07/25/17 20:46 10 MG Ceftriaxone Sodium 1 gm/ Dextrose 50 ml @ 100 mls/hr Q24H IV 07/25/17 23:00 08/02/17 23:29 07/25/17 22:43 100 MLS/HR Losartan Potassium (coZAAR TAB) 50 mg QAM PO 07/25/17 09:00 08/24/17 08:59 07/26/17 09:19 50 MG Warfarin Sodium (Coumadin Tab) 5 mg DAILY@16 PO 07/25/17 16:00 08/24/17 15:59 07/25/17 17:03 5 MG Warfarin Sodium (Coumadin Tab) 2 mg DAILY@16 PO 07/25/17 16:00 08/24/17 15:59 07/25/17 17:04 2 MG Enoxaparin Sodium (Lovenox Inj) 150 mg Q12 SQ 07/25/17 18:00 08/24/17 17:59 07/26/17 09:21 150 MG Potassium Chloride (Klor-Con Tab) 20 meq BID PO 07/26/17 09:00 07/27/17 09:01 Review of Systems All systems were reviewed and are negative except as per HPI Physical Exam Date Time Temp Pulse Resp B/P (MAP) Pulse Ox O2 Delivery O2 Flow Rate FiO2 07/26/17 07:19 36.8 80 16 147/82 (103) 96 Room Air 07/25/17 23:45 Room Air 07/25/17 23:15 37.2 82 18 127/73 (91) 96 Room Air 07/25/17 15:45 Room Air 07/25/17 15:06 37.4 80 18 156/84 (108) 97 Room Air General Appearance: WD/WN, no apparent distress Head: normocephalic, atraumatic Eyes: normal inspection, EOMI, sclerae normal ENT: normal ENT inspection, pharynx normal Neck: supple, no adenopathy, trachea midline Respiratory/Chest: chest non-tender, lungs clear, normal breath sounds, no respiratory distress Cardiovascular: regular rate, rhythm, no gallop, no murmur Abdomen/GI: normal bowel sounds, non tender, soft, no organomegaly Back: normal inspection, no CVA tenderness Extremities/Musculoskelatal: no calf tenderness, non-tender Neurologic/Psych: alert, normal mood/affect, oriented x 3 Skin: normal color, warm/dry, no rash Lymphatic: no adenopathy Laboratory Results RUN DATE: 07/26/17 [facility] LAB PAGE 1 RUN TIME: 1016 Specimen Inquiry PATIENT: LAUREN TORIBIO LOC: [facility] U # : [id number] AGE/SX: 61/M ROOM: 83 REG : 07/25/[address]: Hal Guerrero M : 1955 BED: 2 DIS : STATUS: ADM IN TLOC: SPEC #: [id number] NORY: 07/24/17 STATUS: RES REQ #: [id number] RECD: 07/24/[address]: Teddy Howell DO SOURCE: UR, CC ENTR: 07/24/[address] [facility] [address]: Lynne Alvarez SPDESC: Benton Alexander MD, Urology ORDERED: CULTURE NI COMMENTS: Has Specimen Been Obtained/Collected? Y Procedure Result Verified Site URINE CULTURE Preliminary 07/26/17-1015 Organism 1 STREPTOCOCCUS SPECIES COLONY COUNT >100,000 CFU/ml SENS SENSITIVITY TO FOLLOW Last 24 Hours Test 07/25/17 17:27 07/26/17 06:59 Activated Partial Thromboplast Time 37.1 SECONDS 38.3 SECONDS Partial Thromboplastin Ratio 1.4 1.5 White Blood Count 8.28 K/uL Red Blood Count 4.07 M/uL Hemoglobin 11.7 g/dL Hematocrit 34.4 % Mean Corpuscular Volume 84.5 fL Mean Corpuscular Hemoglobin 28.7 pg Mean Corpuscular Hemoglobin Concent 34.0 g/dl RDW Standard Deviation 41.3 fL RDW Coefficient of Variation 13.4 % Platelet Count 197 K/uL Mean Platelet Volume 8.9 fL Prothrombin Time 12.9 SECONDS Prothromb Time International Ratio 1.2 Sodium Level 141 mmol/L Potassium Level 3.2 mmol/L Chloride Level 105 mmol/L Carbon Dioxide Level 31 mmol/L Anion Gap 5.0 mmol/L Blood Urea Nitrogen 10 mg/dl Creatinine 1.10 mg/dl Est Creatinine Clear Calc Drug Dose 108.6 ml/min Estimated GFR () 82.9 Estimated GFR (Non- 71.6 BUN/Creatinine Ratio 9.5 Random Glucose 141 mg/dl Calcium Level 8.5 mg/dl Assessment & Plan 61-year-old male with history of recurrent urinary tract infection status post recent stent placement, now with recurrent infection with Streptococcus. Appears to be responding appropriately to ceftriaxone, likely can transition to oral cephalosporin and would give 10 day course. Would consider trial of rotating antibiotics rather than chronic suppressive therapy with ciprofloxacin. Will follow up with patient after discharge regarding this approach.
[2017-07-26 15:00] VITALS: BP 152/85; PULSE 79; TEMP 36.5; O2SAT 97
[2017-07-26] MEDS: WARFARIN SOD 2 MG TAB PO SCH (15:50)
[2017-07-26] MEDS: WARFARIN SOD 5 MG TAB PO SCH (15:50)
--- NOTE | 2017-07-26 17:10 | Progress Note ---
Subjective Date of Service: Jul 26, 2017. Subjective Patient is doing well today and has no complaints actually stated he slept well for the first time in a long while. We discussed anticoagulation given the fact that he is going to have his ureteral stent removed in 1 week. We discussed continuing Lovenox versus trying a new NOAC, I did place a call to his hand mexican food maker who did not return a call but I do not see any contraindication to starting him on a medication such Xarelto or Eliquis with appropriate holds prior to his stent removal Problem List Medical Problems: (1) Hypokalemia Status: Acute (2) Infection associated with indwelling ureteral stent Status: Acute (3) Prostatitis Status: Acute (4) Pyelonephritis Status: Acute (5) Pyelonephritis Status: Acute (6) Right flank pain Status: Acute (7) Sepsis secondary to UTI Status: Acute Review of Systems Constitutional: No fever, No chills, No weakness Respiratory: No cough, No sputum, No shortness of breath, No dyspnea on exertion Cardiac: No chest pain, No orthopnea, No PND, No edema Abdomen: No pain, No nausea, No vomiting, No diarrhea Objective Vital Signs Date Time Temp Pulse Resp B/P (MAP) Pulse Ox O2 Delivery O2 Flow Rate FiO2 07/26/17 15:50 Room Air 07/26/17 15:00 36.5 79 20 152/85 (107) 97 Room Air 07/26/17 07:30 Room Air 07/26/17 07:19 36.8 80 16 147/82 (103) 96 Room Air 07/25/17 23:45 Room Air 07/25/17 23:15 37.2 82 18 127/73 (91) 96 Room Air Physical Exam General Appearance: WD/WN, no apparent distress Neck: supple, no JVD Respiratory/Chest: chest non-tender, lungs clear, normal breath sounds Cardiovascular: no murmur, + irregularly irregular Abdomen: normal bowel sounds, non tender, soft Extremities: no calf tenderness, + pedal edema Laboratory Results Last 24 Hours Test 07/25/17 17:27 07/26/17 06:59 Activated Partial Thromboplast Time 37.1 SECONDS 38.3 SECONDS Partial Thromboplastin Ratio 1.4 1.5 White Blood Count 8.28 K/uL Red Blood Count 4.07 M/uL Hemoglobin 11.7 g/dL Hematocrit 34.4 % Mean Corpuscular Volume 84.5 fL Mean Corpuscular Hemoglobin 28.7 pg Mean Corpuscular Hemoglobin Concent 34.0 g/dl RDW Standard Deviation 41.3 fL RDW Coefficient of Variation 13.4 % Platelet Count 197 K/uL Mean Platelet Volume 8.9 fL Prothrombin Time 12.9 SECONDS Prothromb Time International Ratio 1.2 Sodium Level 141 mmol/L Potassium Level 3.2 mmol/L Chloride Level 105 mmol/L Carbon Dioxide Level 31 mmol/L Anion Gap 5.0 mmol/L Blood Urea Nitrogen 10 mg/dl Creatinine 1.10 mg/dl Est Creatinine Clear Calc Drug Dose 108.6 ml/min Estimated GFR () 82.9 Estimated GFR (Non- 71.6 BUN/Creatinine Ratio 9.5 Random Glucose 141 mg/dl Calcium Level 8.5 mg/dl Assessment and Plan 61yo M with with infection while having ureteral stent and a PMHx of atrial fibrillation with embolic stroke, WPW syndrome status post ablation 2, stroke, hypertension, recurrent urinary tract infections, kidney stones status post stent placement 10 years ago, several right knee TKA revisions Recurrent Urinary tract infections status post ureteral stent placement on 07/14 - CT abdomen and pelvis: Right-sided ureteral stent in place without associated obstructive uropathy, mild right greater than left perinephric inflammatory stranding urine culture has grown preliminary strep, infectious disease recommends cephalosporin with continuation as an outpatient Atrial fibrillation/embolic stroke Previously has used Coumadin for anticoagulation, today is on enoxaparin as his INR is subtherapeutic, patient requests consideration Xarelto or Pradaxa. I phoned his hand mexican food maker without a return, reviewed echocardiogram showing no valvular heart disease in association with his A. fib. If there are no other contraindications we'll pursue these medications based upon insurance coverage Hypertension has been stable on amlodipine 10 mg daily, minoxidil 5 mg BID, and metoprolol succinate 100 mg QAM, losartan 50 mg holding hydrochlorothiazide Mood disorder stable on Cymbalta 60 mg daily DVT prophylaxis: Lovenox CODE STATUS: Full code Discharge planning: home
[2017-07-26] MEDS: CEFTRIAXONE SOD INJ 1 GM in DEXTROSE 5% ADD-VANTAGE 50ML 50 ML IV SCH (22:26)
[2017-07-26] MEDS: OXYCODONE HCL IR 5 MG TAB (IMMEDIATE RELEASE) PO PRN (22:26)
[2017-07-26 23:12] VITALS: BP 148/88; PULSE 82; TEMP 37.4; O2SAT 92
[2017-07-27 07:28] VITALS: BP 137/83; PULSE 84; TEMP 37.3; O2SAT 95
[2017-07-27 08:26] LABS: HEMATOCRIT 33.4 % (42-52); MEAN CELL VOLUME 83.7 fL (80-100); MEAN CORPUSCULAR HEMOGLOBIN 28.6 pg (25-34); MEAN CORPUSCULAR HGB CONC 34.1 g/dl (32-36); PLATELET COUNT 208 K/uL (130-400); RED BLOOD COUNT 3.99 M/uL (4.7-6.1); WHITE BLOOD COUNT 7.89 K/uL (4.8-10.8)
[2017-07-27 08:34] LABS: PARTIAL THROMBOPLASTIN RATIO 1.5
--- NOTE | 2017-07-27 08:37 | Hospitalist Progress Note ---
Hospitalist Progress Note Date of Service Jul 27, 2017. Objective Vital Signs Date Time Temp Pulse Resp B/P (MAP) Pulse Ox O2 Delivery O2 Flow Rate FiO2 07/27/17 07:28 37.3 84 19 137/83 (101) 95 07/27/17 00:05 Room Air 07/26/17 23:12 37.4 82 16 148/88 (108) 92 Room Air 07/26/17 15:50 Room Air 07/26/17 15:00 36.5 79 20 152/85 (107) 97 Room Air Laboratory Results Last 24 Hours Test 07/27/17 08:10 Assessment and Plan 61yo M with PMHx of atrial fibrillation, WPW syndrome status post ablation 2, stroke, hypertension, recurrent urinary tract infections, kidney stones status post stent placement 10 years ago, several right knee TKA revision presented to the ER with complaints of low-grade fever with chills along with right sided flank pain. Recurrent Urinary tract infections : status post ureteral stent placement on 07/14 - CT abdomen and pelvis: Right-sided ureteral stent in place without associated obstructive uropathy. Also has a 1.0 suspected cyst on the L kidney. There is nonspecific mild right greater than left perinephric inflammatory stranding is again seen without significant change from comparison study dated 02/01/2017. No postprocedural fluid collections are seen. + Punctate bilateral calculi - urine culture has grown preliminary strep - ID on board- recommending cephalosporin x 10 days, will likely switch to Ceftin or cefdinir. - Urology consulted- appreciate recs- postpone stent removal due to infection, await culture results. Then will reschedule procedure. Pt will need to hold coumadin prior to this procedure. Atrial fibrillation/embolic stroke - Uses Coumadin 7 mg daily for anticoagulation, INR today is 1.4 - Plan to transition to xarelto with hx of embolic stroke. This will need held 24 hours prior to stent removal next week. 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
[2017-07-27] MEDS ORDERED: CEFD300C2 PO (09:44)
[2017-07-27] MEDS ORDERED: RIVA1TAB4 PO (09:44)
[2017-07-27] MEDS: LOSARTAN POTASSIUM 50 MG TAB PO SCH (09:51)
[2017-07-27] MEDS: DULOXETINE HCL 60 MG CAP PO SCH (09:51)
[2017-07-27] MEDS: AMLODIPINE BESYLATE 5 MG TAB PO SCH (09:52)
[2017-07-27] MEDS: POTASSIUM CHLORIDE 20 MEQ TABCR PO SCH (09:52)
[2017-07-27] MEDS: MINOXIDIL 2.5 MG TAB PO SCH (09:53)
[2017-07-27] MEDS: MULTIVITAMIN TAB PO SCH (09:53)
[2017-07-27] MEDS: METOPROLOL SUCC 50MG EXT REL TAB PO SCH (09:54)
[2017-07-27] MEDS: ENOXAPARIN 150 MG/1ML SYR SQ SCH (09:54)
[2017-07-27 10:02] LABS: BUN/CREATININE RATIO 10.6 (10-20); CALCIUM 8.9 mg/dl (8.5-10.1); CREATININE 1.2 mg/dl (0.60-1.40); POTASSIUM 3.6 mmol/L (3.5-5.1)
--- NOTE | 2017-07-27 10:05 | Discharge Instructions ---
Discharge Instructions Date of Service Jul 27, 2017. Admission Reason for Admission: UTI Discharge Discharge Diagnosis / Problem: UTI Discharge Goals Goal(s): Decrease discomfort, Improve function, Increase independence, Improve disease control Activity Recommendations Activity Limitations: resume your previous activity Lifting Limitations: gradually increase as tolerated Exercise/Sports Limitations: none, gradually increase as tolerated May Resume Sexual Activity: when tolerated Shower/Bathe: no limitations Driving or Machine Use: no limitations (DO NOT DRIVE FOR 24H AFTER TAKING NARCOTICS, you can be charged with DUI .) . Instructions / Follow-Up Instructions / Follow-Up You were admitted to [facility] with fever, chills, and diagnosed with Streptococcus urinary tract infection. During your stay here you were treated with intravenous antibiotics, fluids, pain management and other supportive care. Imaging studies which were completed include Abdomen/pelvis CT showing R sided ureteral stent placement, hydronephrosis, bilateral nonobstructing calculi. Your symptoms resolved prior to discharge. Medications: Continue taking cefdinir (Omnicef) 300 mg every 12 hours for the next 8 days to complete a 10 day course. Take xarelto 20 mg once daily for your history of atrial fibrillation and embolic stroke. You should no longer take Coumadin. You do NOT need to hold this medication prior to stent placement. Appointments: Follow up with your Primary Care Provider within 1 week, an appointment has been requested for you. Follow up with Urology on 08/02 at 12:40 pm for stent removal with Dr. Alexander. Current Hospital Diet Patient's current hospital diet: AHA Diet (Heart Healthy) Discharge Diet Recommended Diet: AHA Diet (Heart Healthy) Pending Studies Studies pending at discharge: no Laboratory Results Hemoglobin A1c Test 07/25/17 08:38 Range/Units Estimated Average Glucose 140 mg/dl Hemoglobin A1c 6.5 H 4.5-5.6 % Medical Emergencies . Who to Call and When: Medical Emergencies: If at any time you feel your situation is an emergency, please call 911 immediately. . Non-Emergent Contact Non-Emergency issues call your: Primary Care Provider, Cotton Tier Call Non-Emergent contact if: you have a fever, temperature is above 100.5, your pain is not controlled, your pain is worsening, your pain is unusual for you, your pain is concerning you, you have any medication questions . Past History Medical & Surgical History: (1) UTI (urinary tract infection) (2) Infection associated with indwelling ureteral stent (3) UTI, possible mild sepsis/acute kidney failure . "Provider Documentation" section prepared by Elise Moore. . VTE Core Measure Inpt VTE Proph given/why not?: Other Anticoagulation (IV heparin), T.E.D. Stockings, SCD's
--- NOTE | 2017-07-27 10:43 | Discharge Summary ---
Discharge Summary Date of Service Jul 27, 2017. (La Moore PA-C) Discharge Summary Admission Date: Jul 25, 2017 at 01:03 Discharge Date: Jul 27, 2017 Discharge Disposition: Home Principal Diagnosis: Strept UTI Immunizations: Have You Had Influenza Vaccine: No History of Pneumococcal: No History of Hepatitis B Vaccine: Unknown Procedures: ABD/PELVIS NO IV OR ORAL CONT HISTORY: 61 years-old Male acute right-sided flank pain COMPARISON: [facility] 07/14/2017, CT abdomen and pelvis 02/01/2017 TECHNIQUE: Multiple axial CT images of the abdomen and pelvis were obtained without contrast. A dose lowering technique was used consistent with the principals of AMITA. FINDINGS: Subcentimeter prequel calcifications are present within the right lower lobe. There is minimal bibasilar atelectasis. There is no pneumoperitoneum. The imaged inferior cardiac chambers demonstrate coronary arterial calcifications. Nonspecific low attenuating 7 mm lesion involves the lateral left hepatic lobe, unchanged from comparison suggesting hepatic cyst.-Appearing 6 mm lesion is noted within the inferior right hepatic lobe. Scattered calcifications throughout the splenic parenchyma suggest prior granulomatous disease. Gallbladder is contracted. The pancreas and right adrenal gland are unremarkable. There is a 1.2 x 1.1 cm low attenuating left adrenal gland nodule compatible with adenoma. 1.0 cm probable cyst involves the superior pole left kidney. Punctate nonobstructing calculus involves the superior pole left kidney. Nonspecific perinephric stranding is present bilaterally. Right-sided ureteral stent is present with proximal portion within the right renal pelvis. There is apparent mild atrophy of the inferior pole left kidney. There is a probable punctate nonobstructing calculus of the inferior pole right kidney. Distal portion of the right-sided ureteral stent terminates within the urinary bladder lumen. No residual stones are seen along the course of the stent. No residual significant right-sided hydroureteronephrosis identified. Urine bladder is partially collapsed. Prostate is mildly enlarged. Fat filled left inguinal hernia is noted. Prior right inguinal hernia repair. Bilateral inguinal adenopathy is seen with index node on the right measuring 3.5 x 1.8 cm, unchanged from comparison. The abdominal aorta is normal in course and caliber. Mildly prominent right iliac lymph node is seen, 1.8 x 1.0 cm, unchanged and nonspecific. Noninflamed colonic diverticula are present. No focal bowel wall thickening or bowel obstruction identified. The appendix is not seen and may be surgically absent. Soft tissues are unremarkable. The bones are mildly demineralized. Advanced facet arthrosis involves the lower lumbar spine. Multilevel intervertebral disc space narrowing of the lumbar spine also appreciated. IMPRESSION: 1. Right-sided ureteral stent in place without associated obstructive uropathy. Nonspecific mild right greater than left perinephric inflammatory stranding is again seen without significant change from comparison study dated 02/01/2017. No postprocedural fluid collections are seen. 2. Punctate bilateral nonobstructing renal calculi. 3. Colonic diverticulosis without diverticulitis. 4. Unchanged bilateral inguinal adenopathy. 5. Fat filled left inguinal hernia. Prior right inguinal hernia repair. 6. Additional incidental findings as above. The above report was generated using voice recognition software. It may contain grammatical, syntax or spelling errors. Electronically signed by: Navin Ugalde M.D. 07/24/2017 10:49 PM Dictated Date/Time: 07/24/2017 10:37 PM The status of this report is Signed. CHEST ONE VIEW PORTABLE HISTORY: 61 years-old Male acute abdominal pain. COMPARISON: Chest radiograph 12/06/2016 TECHNIQUE: Portable upright AP view of the chest FINDINGS: Cardiac silhouette is within normal limits. There is no pneumothorax, pleural effusion, focal airspace consolidation or overt pulmonary edema. Degenerative changes involve the bilateral shoulders with subcortical cystic changes of the right humeral head. There is mild atherosclerosis of the aorta. IMPRESSION: No acute cardiopulmonary process. The above report was generated using voice recognition software. It may contain grammatical, syntax or spelling errors. Electronically signed by: Navin Ugalde M.D. 07/24/2017 10:27 PM Dictated Date/Time: 07/24/2017 10:26 PM The status of this report is Signed. Consultations: Urology Infectious disease (La Moore PA-C) Medication Reconciliation New Medications: Cefdinir (Omnicef) 300 Mg Cap 1 CAP PO BID for 8 Days, #16 CAP Rivaroxaban (Xarelto) 20 Mg Tab 1 TAB PO DAILY for 30 Days, #30 TAB 1 Refill Continued Medications: Acetaminophen (Tylenol) 500 Mg Tab 1000 MG PO BID, TAB Amlodipine Besylate (Amlodipine Besylate) 5 Mg Tab 5 MG PO QAM Duloxetine Hcl (Cymbalta) 60 Mg Cap 60 MG PO QAM, CAP Hctz/Losartan (Hyzaar 25MG/100MG) Tab 1 TAB PO QAM, TAB Metoprolol Succinate (Metoprolol Succinate ER) 100 Mg Tabcr 100 MG PO QAM Minoxidil (Minoxidil) 10 Mg Tab 5 MG PO BID, TAB Multivitamin (Multivitamin) Tab 1 TAB PO BID, TAB Oxycodone HCl (Oxycodone HCl) 5 Mg Tab 5 MG PO HS PRN for Pain Terazosin HCl (Terazosin HCl) 10 Mg Cap 10 MG PO HS Discontinued Medications: Ciprofloxacin Hcl (Cipro) 500 Mg Tab 500 MG PO BID, TAB Warfarin Sodium (Warfarin Sodium) 1 Mg Tab 2 MG PO DAILY, TAB TAKE TWO 1 MG TABLETS ALONG WITH ONE 5 MG TABLET TO EQUAL DAILY DOSE OF 7 MG OR TAKE OTHERWISE DIRECTED TO TAKE BY ANTICOAGULATION CLINIC/MD Warfarin Sodium (Warfarin Sodium) 5 Mg Tab 5 MG PO DAILY, TAB TAKE ONE 5 MG TABLET ALONG WITH TWO 1 MG TABLETS TO EQUAL DAILY DOSE OF 7 MG OR TAKE OTHERWISE DIRECTED TO TAKE BY ANTICOAGULATION CLINIC/MD Discharge Exam The patient was seen and examined this morning. Pt reports doing well today. He has no acute complaints. No pain. Eating and drinking without difficulty. He has been ambulating about the room. Review of Systems: Constitutional: No fever, No chills, No sweats, No fatigue ENT: No sore throat, No trouble swallowing Respiratory: No cough, No shortness of breath Cardiovascular: No chest pain, No edema Abdomen: No pain, No nausea, No vomiting, No diarrhea, No constipation Musculoskeletal: No joint pain, No swelling Genitourinary - Male: No hematuria, No dysuria, No urinary frequency Neurologic: No memory loss, No numbness/tingling Psychiatric: No depression symptoms, No anxiety Endocrine: No fatigue Integumentary: No rash, No itch Physical Exam: General Appearance: WD/WN, no apparent distress Eyes: PERRL, EOMI ENT: hearing grossly normal, pharynx normal Neck: supple, thyroid normal Respiratory/Chest: lungs clear, no respiratory distress, no accessory muscle use Cardiovascular: regular rate, rhythm, normal peripheral pulses, + systolic murmur (grade II/, LSB 2nd ICS) Abdomen / GI: normal bowel sounds, non tender, soft Extremities: no calf tenderness, + pedal edema (RLE 2+ nonpitting, no peripheral edema in the LLE) Neurologic/Psychiatric: alert, normal reflexes, oriented x 3 Skin: normal color, warm/dry (La Moore, ADELA) Hospital Course History of Present Illness Source: patient 61-year-old male with a past medical history of atrial fibrillation, WPW syndrome status post ablation 2, stroke, hypertension, recurrent urinary tract infections, kidney stones status post stent placement 10 years ago, several right knee TKA revision presented to the ER with complaints of low-grade fever with chills which started this morning. He also complains of right flank pain which started yesterday about 3/10 in severity. The patient had stents placed in his right kidney after kidney stone removal about 10 days ago and was due for stent removal on Tuesday. He is currently on Cipro 500 mg twice a day for recurrent urinary tract infections. Complains of fevers /chills that started this morning associated with right flank pain. He also had a few episodes of hematuria, increased frequency but denied any nausea and vomiting, diarrhea. Physical Exam Vital Signs Date Time Temp Pulse Resp B/P (MAP) Pulse Ox O2 Delivery O2 Flow Rate FiO2 07/24/17 23:55 87 20 148/70 95 Room Air 07/24/17 22:40 87 07/24/17 21:37 37.3 73 20 174/81 95 Room Air General Appearance: WD/WN, no apparent distress Head: normocephalic Eyes: normal inspection ENT: hearing grossly normal Neck: supple Respiratory/Chest: chest non-tender, lungs clear, normal breath sounds, no respiratory distress, no accessory muscle use Cardiovascular: regular rate, rhythm Abdomen/GI: normal bowel sounds, non tender, soft Back: normal inspection, no CVA tenderness Extremities/Musculoskelatal: + pedal edema (RLE) Neurologic/Psych: alert, normal mood/affect, oriented x 3 Skin: normal color Hospital Course: 61yo M with PMHx of atrial fibrillation, WPW syndrome status post ablation 2, stroke, hypertension, recurrent urinary tract infections, kidney stones status post stent placement 10 years ago, several right knee TKA revision presented to the ER with complaints of low-grade fever with chills along with right sided flank pain. Recurrent Urinary tract infections : status post ureteral stent placement on 07/14 - CT abdomen and pelvis: Right-sided ureteral stent in place without associated obstructive uropathy. Also has a 1.0 suspected cyst on the L kidney. There is nonspecific mild right greater than left perinephric inflammatory stranding is again seen without significant change from comparison study dated 02/01/2017. No postprocedural fluid collections are seen. + Punctate bilateral calculi - urine culture has grown preliminary strep - ID on board- recommending cephalosporin x 10 days, will likely switch to Cefdinir 300 mg Q12H x 8 more days to complete a 10 day course. Will have pt follow with ID prior to end of this antibiotic course for further recs regarding alternating antibiotics. - Urology consulted- appreciate recs- stent removal scheduled for 08/02, spoke with Yolanda Amado who instructed that patient does not need to hold xarelto prior to procedure. Atrial fibrillation/embolic stroke - Uses Coumadin 7 mg daily for anticoagulation, INR today is 1.4 - Plan to transition to xarelto with hx of embolic stroke. Prescription provided at time of discharge along with waiver card for first 30 days free. 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 Mood disorder : -continue Cymbalta 60 mg daily DVT prophylaxis: Coumadin, teds, scds CODE STATUS: Full code Disposition: From home, discharge today Total Time Spent: Greater than 30 minutes This includes examination of the patient, discharge planning, medication reconciliation, and communication with other providers. (La Moore, ADELA) PA Physician Supervision Note: I interviewed and examined the patient. Discussed with La Moore PAC and agree with findings and plan as documented in the note. Any exceptions or clarifications are listed here: None Patient is doing well having no additional fevers understands need for follow- up with infectious disease we discussed the Xarelto therapy vital signs are stable, cardiac is irregularly irregular lungs are clear Will complete Cefdinir therapy as an outpatient, following up for stent removal in 1 week with urology Initiate Xarelto therapy for A. fib thromboembolic prevention given previous stroke from A. fib follow-up with process improvement engineer in [place] Documented By: Hal Guerrero (Hal Guerrero M.D.) Discharge Instructions Please refer to the electronic Patient Visit Report (Discharge Instructions) for additional information. (La Moore PA-C) Follow-Up Follow up with your Primary Care Provider within 1 week. Follow up with urology on 08/02 at 12:[address] Alexander. Follow up with Infectious disease within 1 week. (La Moore PA-C) Additional Copies To Lynne Alvarez
[2017-07-27 12:37] VITALS: BP 137/83; PULSE 84; TEMP 37.3; O2SAT 95
== END 2017-07-27 13:13 | disposition home or self-care (01) | DRG 699 ==
LOC: C.EDB 21:32 → C.MSN 07-25 01:03 → ENRESERV 07-25 01:26 → EDBEDREQSVC 07-25 01:26 → CANRESERV 07-25 01:26 → ENRESERV 07-25 01:30
PROVIDERS: ADMIT Family Medicine; ATTEND Internal Medicine
DX: T83.592A Infection and inflammatory reaction due to indwelling ureteral stent, initial encounter (principal); N39.0 Urinary tract infection, site not specified; Z68.41 Body mass index [BMI] 40.0-44.9, adult; B95.5 Unspecified streptococcus as the cause of diseases classified elsewhere; I48.91 Unspecified atrial fibrillation; I11.9 Hypertensive heart disease without heart failure; F39 Unspecified mood [affective] disorder; E66.9 Obesity, unspecified; Z51.81 Encounter for therapeutic drug level monitoring; Z79.899 Other long term (current) drug therapy; Z79.01 Long term (current) use of anticoagulants; Z87.442 Personal history of urinary calculi; Z87.440 Personal history of urinary (tract) infections; Z87.891 Personal history of nicotine dependence; Z86.73 Personal history of transient ischemic attack (TIA), and cerebral infarction without residual deficits; Y83.1 Surgical operation with implant of artificial internal device as the cause of abnormal reaction of the patient, or of later complication, without mention of misadventure at the time of the procedure

== ENCOUNTER 2018-02-16 18:38 | Emergency (ER) | payer OTHER ==
[~2018-02-16] VITALS: Ht 190.5 cm; Wt 141.2 kg
[~2018-02-16 18:38] MED LIST changes: -CIPR1TAB11 PO; -METO1TAB69 PO; +OXYC-609 PO; -OXYC1TAB3 PO; -PHEN-775 PO; +RIVA1TAB4 PO; +TPRSR/100 PO; -WARF2TAB8 PO
[2018-02-16 18:49] VITALS: Ht 190.5 cm; Wt 141.2 kg
[2018-02-16] MEDS ORDERED: VANCOMYCIN IV 2,750 MG in SODIUM CHLORIDE 0.9% 500ML 500 ML IV STA (19:06)
[2018-02-16] MEDS ORDERED: ACETAMINOPHEN 500 MG TAB PO STA (19:06)
[2018-02-16] MEDS ORDERED: PIPERACILLIN/TAZOBACTAM 4.5 GM/100ML D5W IV STA (19:06)
[2018-02-16] MEDS ORDERED: SODIUM CHLORIDE 0.9% 1000ML 2,000 ML IV STA (19:06)
[2018-02-16] MEDS ORDERED: VANCOMYCIN CONSULT ACTIVE PRN (19:15)
--- NOTE | 2018-02-16 19:48 | DIAGNOSTIC IMAGING REPORT ---
R TIBIA/FIBULA 2 VIEWS ROUTINE CLINICAL HISTORY: cellulitis pain. Edema. COMPARISON: Right knee 11/04/2006 DISCUSSION: Interval revision of the patient's total right knee arthroplasty. Longstem prosthetic is identified at the tibia. There is suggestion of potential Periosteal reaction at the posterior aspect of the proximal tibial shaft. Potential developing erosive changes deep to the tibial plate is potentially present. This raise the possibly of osteomyelitis. Area of generalized soft tissue edematous change is noted at the knee as well as right ankle.. IMPRESSION: Potential developing osteomyelitis about a right tibial total knee prosthetic revision. Potential developing osteomyelitis proximal tibial shaft area. Generalized soft tissue edema about the right knee as well as right ankle with superimposed degenerative change of the right ankle. The above report was generated using voice recognition software. It may contain grammatical, syntax or spelling errors. Electronically signed by: Brennen Serrano M.D. 02/16/2018 7:47 PM Dictated Date/Time: 02/16/2018 7:43 PM
--- NOTE | 2018-02-16 19:51 | DIAGNOSTIC IMAGING REPORT ---
R KNEE 1 OR 2 VIEWS ROUTINE CLINICAL HISTORY: right knee swelling, cellulitis, effusion pain. Edema. COMPARISON: None. DISCUSSION: Evidence for a total right knee prosthetic revision procedure. Longstem prosthetics are identified within the tibia as well as distal femur. There is considerable soft tissue edematous change anterior to the patella and knee specifically. Potential erosive changes and/or developing components of osteomyelitis adjacent to the proximal tibial prosthetic and potentially adjacent to the distal aspect of the femoral prosthetic. Developing Periosteal reaction of the distal femoral shaft is also present primarily in the lateral position. IMPRESSION: Findings consistent with a total right knee revision type procedure. Potential developing osteomyelitis of the proximal tibia as well as distal femur with considerable surrounding soft tissue edematous change. The above report was generated using voice recognition software. It may contain grammatical, syntax or spelling errors. Electronically signed by: Brennen Serrano M.D. 02/16/2018 7:50 PM Dictated Date/Time: 02/16/2018 7:47 PM
[2018-02-16 20:31] LABS: BASO % 0.3 %; BASO ABS # 0.04 K/uL (0-0.2); EOS % 0.6 %; EOS ABS # 0.09 K/uL (0-0.5); HEMATOCRIT 33.1 % (42-52); HEMOGLOBIN 11.1 g/dL (14.0-18.0); IG# 0.12 K/uL (0.00-0.02); LYMPH % 8.7 %; LYMPH ABS # 1.33 K/uL (1.2-3.4); MEAN CELL VOLUME 78.1 fL (80-100); MEAN CORPUSCULAR HEMOGLOBIN 26.2 pg (25-34); MEAN CORPUSCULAR HGB CONC 33.5 g/dl (32-36); MONO % 6.3 %; MONO ABS # 0.96 K/uL (0.11-0.59); NEUT % 83.3 %; NEUT ABS # 12.72 K/uL (1.4-6.5); PLATELET COUNT 302 K/uL (130-400); RED CELL DISTRIBUTION WIDTH CV 15.3 % (11.5-14.5); RED CELL DISTRIBUTION WIDTH SD 43.3 fL (36.4-46.3); WHITE BLOOD COUNT 15.26 K/uL (4.8-10.8)
[2018-02-16 20:33] LABS: INR 1.1 (0.9-1.1); PTT PATIENT 38.3 SECONDS (21.0-31.0)
[2018-02-16 20:44] LABS: ALBUMIN 2.6 gm/dl (3.4-5.0); CALCIUM 8.8 mg/dl (8.5-10.1); CREATININE 1.76 mg/dl (0.60-1.40); POTASSIUM 3.4 mmol/L (3.5-5.1); URIC ACID 4.7 mg/dl (2.6-7.2)
[2018-02-16 20:53] LABS: TOTAL PROTEIN 7.9 gm/dl (6.4-8.2)
[2018-02-16] MEDS ORDERED: FESO8TAB PO (20:59)
[2018-02-16 21:00] VITALS: TEMP 38.4
[2018-02-16] MEDS ORDERED: AMLO-114 PO (21:01)
[2018-02-16] MEDS ORDERED: MELATAB2 PO (21:02)
[2018-02-16] MEDS ORDERED: RIVA1TAB4 PO (21:04)
[2018-02-16] MEDS ORDERED: DOXY100C76 PO (21:08)
[2018-02-16] MEDS ORDERED: [UNRECOGNIZED DRUG - OTHER] PO (21:08)
--- NOTE | 2018-02-16 21:10 | EMERGENCY ROOM VISIT NOTE ---
ED Visit Note First contact with patient: 18:57 CHIEF COMPLAINT: Right lower extremity pain, swelling, redness HISTORY OF PRESENTING ILLNESS: This is a 62-year-old male who presented to the emergency department with complaint of right lower extremity pain, swelling and redness that started about 4 days ago. He states he has also had some fevers off and on for the past 4 days. He saw his PCP yesterday, who placed him on doxycycline for right lower extremity cellulitis, the patient states he has taken 3 doses of this. He states since last night that his symptoms have gotten progressively worse, today he has had significant swelling of his right knee joint. He reports a history of multiple previous infections of the right knee, and states he has had a total knee replacement about 7 years ago. Since that time he states he has had his right knee operated on 10 times in the past 5 years, secondary to infections of his hardware. He states that he is followed by Dr. Dash, [facility] orthopedics in [place] for his surgeries, and states he has not followed by any orthopedic surgeons in this area due to the complexity of his previous surgeries. He reports fevers and chills, general fatigue and malaise today. He denies any headaches, chest pain, shortness of breath, abdominal pain, back pain, nausea or vomiting, urinary symptoms, or rash. REVIEW OF SYSTEMS: A complete 10 point review of systems was reviewed with the patient with pertinent positives and negatives as per history of present illness. All else were negative. PAST MEDICAL HISTORY: Multiple surgeries to the right knee, bilateral knee replacement surgeries. Kidney stones, hypertension, atrial fibrillation on Xarelto. SOCIAL HISTORY: Lives at home. Denies tobacco use. ALLERGIES: Reviewed in chart. PHYSICAL EXAM: CONSTITUTIONAL: Pleasant and cooperative. No acute distress, but obviously uncomfortable and in pain. Non-diaphoretic, nontoxic appearing. Mildly dehydrated. HEENT: Normocephalic, atraumatic. Pupils equal, round and reactive to light, EOMI. TMs normal. Pharynx normal. Tacky mucous membranes. NECK: Supple, full active range of motion without discomfort. RESPIRATORY: Clear to auscultation bilaterally with no wheezing, crackles, rhonchi or stridor. Equal expansion bilaterally. CARDIOVASCULAR: Regular rate and rhythm with no murmurs, rubs or gallops. Normal peripheral perfusion. 3+ pitting edema of the right lower extremity, no edema of the left lower extremity. GASTROINTESTINAL: Soft, nontender, nondistended. No palpable masses or HSM. Bowel sounds present in all quadrants. MUSCULOSKELETAL: The right lower extremity is diffusely swollen, with pitting edema, circumferentially erythematous and hot to the touch, tender to palpation. There is significant pain with attempts to extend or flex the right knee. There is significant swelling of the right knee joint, hot to the touch, tender to palpation, erythematous, with a large joint effusion noted. Healed surgical scars noted on the anterior bilateral knees. Full range of motion of all other joints without discomfort. INTEGUMENTARY: No rash or other significant dermatologic conditions noted. NEUROLOGIC: Alert and oriented X 4 with normal affect. Cranial nerves II-XII grossly intact. No focal neurologic deficits noted. Normal strength and sensation all 4 extremities. Normal speech. ED COURSE AND MEDICAL DECISION MAKING: CC: Patient presenting with complaint of right lower extremity cellulitis DIFFERENTIAL DIAGNOSIS: Includes, but not limited to cellulitis, abscess, DVT, septic joint, sepsis/bacteremia, gouty arthritis, necrotizing fasciitis, osteomyelitis, among others. INTERPRETATION OF LABS: Leukocytosis with left shift, mild anemia (consistent with baseline), mild hypokalemia, no other significant electrolyte abnormalities , decreased renal function when compared to baseline, normal liver enzymes. Coagulation factors within normal limits. Significantly elevated inflammatory markers. Lactic acid within normal limits. Synovial fluid noting markedly elevated WBCs and RBCs. RUN DATE: 02/16/18 [facility] LAB PAGE 1 RUN TIME: 2199 Specimen Inquiry PATIENT: LAUREN TORIBIO LOC: [place] U # : [id number] AGE/SX: 62/M ROOM: REG : 02/16/[address]: Joselo Velasco MD : [id number] BED: DIS : STATUS: REG ER TLOC: SPEC #: [id number] NORY: 02/16/18 STATUS: RES REQ #: [id number] RECD: 02/16/[address] [facility] [address]: Ana Marte CRNP SOURCE: JOINT FLSP ENTR: 02/16/[address] [facility] [address]: Joselo Velasco MD SPDESC: KNEE RIGHT Lynne Alvarez ORDERED: COY BROOKS/SP CU/SM Procedure Result Verified Site GRAM STAIN Final 03/22/18-2200 RESULT MANY POLYS MANY GRAM POSITIVE COCCI JOINT FLUID/SPACE CULTURE PENDING END OF REPORT IMAGING: R KNEE 1 OR 2 VIEWS ROUTINE CLINICAL HISTORY: right knee swelling, cellulitis, effusion pain. Edema. COMPARISON: None. DISCUSSION: Evidence for a total right knee prosthetic revision procedure. Longstem prosthetics are identified within the tibia as well as distal femur. There is considerable soft tissue edematous change anterior to the patella and knee specifically. Potential erosive changes and/or developing components of osteomyelitis adjacent to the proximal tibial prosthetic and potentially adjacent to the distal aspect of the femoral prosthetic. Developing Periosteal reaction of the distal femoral shaft is also present primarily in the lateral position. IMPRESSION: Findings consistent with a total right knee revision type procedure. Potential developing osteomyelitis of the proximal tibia as well as distal femur with considerable surrounding soft tissue edematous change. ----- R TIBIA/FIBULA 2 VIEWS ROUTINE CLINICAL HISTORY: cellulitis pain. Edema. COMPARISON: Right knee 11/04/2006 DISCUSSION: Interval revision of the patient's total right knee arthroplasty. Longstem prosthetic is identified at the tibia. There is suggestion of potential Periosteal reaction at the posterior aspect of the proximal tibial shaft. Potential developing erosive changes deep to the tibial plate is potentially present. This raise the possibly of osteomyelitis. Area of generalized soft tissue edematous change is noted at the knee as well as right ankle.. IMPRESSION: Potential developing osteomyelitis about a right tibial total knee prosthetic revision. Potential developing osteomyelitis proximal tibial shaft area. Generalized soft tissue edema about the right knee as well as right ankle with superimposed degenerative change of the right ankle. EKG: Atrial fibrillation with RVR, rate of 132 bpm, frequent PVCs and incomplete left bundle block, A. fib appears new when compared to previous EKG from 01/31/2017 by my interpretation. MEDICATION RECONCILIATION: I attest that I have personally reviewed the patient 's current medication list. PROCEDURE NOTE: Knee Arthrocentesis, right knee Indication: Swollen, hot knee, concern for septic joint Verbal consent was obtained after the risks and benefits were explained, including but not limited to bleeding/clotting, scarring, infection, pain, and bone/joint/nerve damage. At this time, the risks of the procedure are less than the risks of NOT performing the procedure. A time out was taken and the correct patient and site identified. The patient was placed in the supine position with a towel roll under the right knee in a slightly flexed position. The knee was prepped with betadine and draped in the standard sterile fashion. The superior lateral joint space was identified. The patient declined local anesthesia. An 18G needle was inserted through the skin, and constant steady traction was applied to the syringe as the needle was slowly advanced into the joint space, until return of fluid was achieved. 250 mL of turbid, dark red fluid was initially drained from the joint space, becoming more cloudy and thick with a pinkish-red tinge. Fluid sent to the lab for evaluation. The needle was removed and the skin was cleaned with sterile gauze and saline, and a bandaid was placed over the insertion site. The patient tolerated the procedure well, reporting improved knee pain after fluid removal, and there were no complications. INITIAL VITAL SIGNS REVIEW: I reviewed the patient's initial vital signs and interpret them as follows: T: Febrile; BP: Normotensive; HR: Within normal limits; RR: Within normal limits; Pulse Ox: Within normal limits on room air. Blood pressure screening: The patient was found to have normal blood pressure on screening and does not require follow-up for repeat blood pressure check. SUMMARY: Patient was evaluated at bedside, history and physical exam performed. Patient is alert and oriented, in no acute distress and nontoxic appearing, resting calmly in the stretcher. Patient is noted to be febrile on initial assessment. The right lower extremity is diffusely edematous, erythematous, and tender to palpation, hot to touch, with a significant effusion of the right knee joint and significant pain with range of motion of the right knee joint. Exam findings are quite concerning for septic knee joint, especially given history of a total knee replacement and history of joint infections in the past. Orders were placed at bedside for labs, blood cultures 2, lactic acid, IV fluid bolus for hydration, x-ray imaging of the knee and tibia/fibula to evaluate infection. IV vancomycin and Zosyn order for broad coverage of cellulitis/septic joint. Tylenol ordered for fever. Patient discussed with Dr. Velasco, who agrees with my assessment and plan. I spoke on the phone with Dr. Morrell, [facility] orthopedics, who agrees with my workup and does recommend arthrocentesis of the right knee. Arthrocentesis performed as above, fluid concerning for acutely septic joint. IV antibiotics were started after blood cultures and joint fluid were obtained. Labs and imaging reviewed as above, notable for leukocytosis, significantly elevated inflammatory markers. Synovial fluid consistent with septic joint. Imaging findings concerning for possible developing osteomyelitis of the proximal tibia and distal femur. EKG reviewed, noting the patient is in atrial fibrillation with RVR. Patient reports a history of A. fib for many years and is on Xarelto for this. I reassessed the patient given the change in heart rate, the patient is fluctuating between the 90s and the 150s. His blood pressure has been stable. Reassessment of the patient's temperature notes that he has been defervescing appropriately after Tylenol. Given that the patient has an active infection and does appear to be dehydrated , an additional liter of fluid bolus was ordered for the increased heart rate and will continue to monitor. Dr. Velasco did speak on the phone with Dr. Nunez, the on-call orthopedic surgeon here, who did not feel comfortable operating on this patient's knee due to the complexity of his previous surgeries. I did speak on the phone again with Dr. Morrell at [facility], informing him of findings of my workup here, he agrees to accept the patient for transfer to their facility. Patient reassessed multiple times throughout ED stay, he remains well-appearing , and reports improved pain. Patient was updated on all results and plan for transfer to [facility] for admission and probable surgery, he verbalized understanding and was agreeable to this plan. The patient was stable at time of transfer. Problem List Medical Problems: (1) Kidney stones Status: Resolved Current/Historical Medications Scheduled Acetaminophen (Tylenol), 1,000 MG PO BID Amlodipine (Norvasc), 10 MG PO BID Doxycycline Monohydrate (Monodox), 100 MG PO BID Duloxetine Hcl (Cymbalta), 60 MG PO QAM Hctz/Losartan (Hyzaar 25MG/100MG), 1 TAB PO QAM Melatonin (Melatonin Maximum Strengt), 10 MG PO HS Metoprolol Succinate (Metoprolol Succinate ER), 100 MG PO QAM Minoxidil (Minoxidil), 10 MG PO BID Multivitamin (Multivitamin), 1 TAB PO BID Rivaroxaban (Xarelto), 20 MG PO QPM Terazosin HCl (Terazosin HCl), 10 MG PO HS [Bexagliflozin], 20 MG PO DAILY Scheduled PRN Oxycodone HCl (Oxycodone HCl), 5 MG PO HS PRN for Pain Allergies Coded Allergies: Vancomycin (Verified Allergy, Intermediate, "My kidney's shut down", ) Vital Signs Date Time Temp Pulse Resp B/P (MAP) Pulse Ox O2 Delivery O2 Flow Rate FiO2 02/16/18 22:32 124 20 147/81 97 Room Air 02/16/18 22:29 122/91 02/16/18 22:01 145/68 02/16/18 21:33 140 20 120/58 95 Room Air 02/16/18 21:11 125 02/16/18 21:00 38.4 120 20 107/52 95 Room Air 02/16/18 18:49 38.9 88 20 131/71 95 Room Air Laboratory Results 02/16/18 20:05 Red Blood Count 4.24, Mean Corpuscular Volume 78.1, Mean Corpuscular Hemoglobin 26.2, Mean Corpuscular Hemoglobin Concent 33.5, Mean Platelet Volume 9.0, Neutrophils (%) (Auto) 83.3, Lymphocytes (%) (Auto) 8.7, Monocytes (%) (Auto) 6.3, Eosinophils (%) (Auto) 0.6, Basophils (%) (Auto) 0.3, Neutrophils # (Auto) 12.72, Lymphocytes # (Auto) 1.33, Monocytes # (Auto) 0.96, Eosinophils # (Auto) 0.09, Basophils # (Auto) 0.04 02/16/18 20:05 Test 02/16/18 20:05 02/16/18 20:30 White Blood Count 15.26 K/uL (4.8-10.8) Red Blood Count 4.24 M/uL (4.7-6.1) Hemoglobin 11.1 g/dL (14.0-18.0) Hematocrit 33.1 % (42-52) Mean Corpuscular Volume 78.1 fL (80-100) Mean Corpuscular Hemoglobin 26.2 pg (25-34) Mean Corpuscular Hemoglobin Concent 33.5 g/dl (32-36) Platelet Count 302 K/uL (130-400) Mean Platelet Volume 9.0 fL (7.4-10.4) Neutrophils (%) (Auto) 83.3 % Lymphocytes (%) (Auto) 8.7 % Monocytes (%) (Auto) 6.3 % Eosinophils (%) (Auto) 0.6 % Basophils (%) (Auto) 0.3 % Neutrophils # (Auto) 12.72 K/uL (1.4-6.5) Lymphocytes # (Auto) 1.33 K/uL (1.2-3.4) Monocytes # (Auto) 0.96 K/uL (0.11-0.59) Eosinophils # (Auto) 0.09 K/uL (0-0.5) Basophils # (Auto) 0.04 K/uL (0-0.2) RDW Standard Deviation 43.3 fL (36.4-46.3) RDW Coefficient of Variation 15.3 % (11.5-14.5) Immature Granulocyte % (Auto) 0.8 % Immature Granulocyte # (Auto) 0.12 K/uL (0.00-0.02) Erythrocyte Sedimentation Rate 84 mm/hr (0-14) Prothrombin Time 11.6 SECONDS (9.0-12.0) Prothromb Time International Ratio 1.1 (0.9-1.1) Activated Partial Thromboplast Time 38.3 SECONDS (21.0-31.0) Partial Thromboplastin Ratio 1.5 Anion Gap 7.0 mmol/L (3-11) Est Creatinine Clear Calc Drug Dose 65.1 ml/min Estimated GFR () 46.7 Estimated GFR (Non- 40.3 BUN/Creatinine Ratio 13.2 (10-20) Lactic Acid Level 1.7 mmol/L (0.4-2.0) Uric Acid 4.7 mg/dl (2.6-7.2) Calcium Level 8.8 mg/dl (8.5-10.1) Magnesium Level 2.3 mg/dl (1.8-2.4) Total Bilirubin 0.5 mg/dl (0.2-1) Direct Bilirubin 0.2 mg/dl (0-0.2) Aspartate Amino Transf (AST/SGOT) 22 U/L (15-37) Alanine Aminotransferase (ALT/SGPT) 40 U/L (12-78) Alkaline Phosphatase 111 U/L (45-117) C-Reactive Protein 29.80 mg/dl (0-0.29) Total Protein 7.9 gm/dl (6.4-8.2) Albumin 2.6 gm/dl (3.4-5.0) Synovial Fluid Source KNEE Synovial Fluid Color RED Synovial Fluid Appearance CLOUDY Synovial Fluid WBC 014077 /uL (0-200) Synovial Fluid RBC 448912 /uL Synovial Fluid Polynuclear WBCs % 88.4 % Synovial Fluid Mononuclear WBCs % 11.6 % Synovial Fluid Uric Acid mg/dl Medications Administered Medications (Trade) Dose Ordered Sig/Candy Route Start Time Stop Time Status Last Admin Dose Admin Sodium Chloride 2,000 ml @ 999 mls/hr Q2H1M STAT IV 02/16/18 19:06 02/16/18 21:06 DC 02/16/18 20:10 999 MLS/HR Acetaminophen (Tylenol Tab) 1,000 mg NOW STAT PO 02/16/18 19:06 02/16/18 19:16 DC 02/16/18 19:47 1,000 MG Vancomycin HCl 2750 mg/Sodium Chloride 555 ml @ 200 mls/hr ONE STAT IV 02/16/18 19:06 02/16/18 21:52 DC 02/16/18 21:48 200 MLS/HR Piperacillin Sod/ Tazobactam Sod (Zosyn Iv) 4.5 gm NOW STAT IV 02/16/18 19:06 02/16/18 19:16 DC 02/16/18 20:49 4.5 GM Sodium Chloride 1,000 ml @ 999 mls/hr Q1H1M STAT IV 02/16/18 22:04 02/16/18 23:04 DC 02/16/18 22:05 999 MLS/HR Departure Information Impression Primary Impression: Septic joint of right knee joint Additional Impressions: Cellulitis of right lower extremity Atrial fibrillation with rapid ventricular response Dispostion Transfer Acute Care Facility Condition [facility] Referrals Lynne AlvarezR.N.P. (PCP) Patient Instructions My [facility] Problem Qualifiers Primary Impression: Septic joint of right knee joint Septic arthritis organism: due to unspecified organism Qualified Codes: M00.9 - Pyogenic arthritis, unspecified
--- NOTE | 2018-02-16 21:22 | EMERGENCY ROOM VISIT NOTE ---
ED Visit Note First contact with patient: 18:57 I have seen and examined this patient with Ana Marte and generally agree with the treatment plan as discussed. Problem List Medical Problems: (1) Kidney stones Status: Resolved Current/Historical Medications Scheduled Acetaminophen (Tylenol), 1,000 MG PO BID Amlodipine (Norvasc), 10 MG PO BID Doxycycline Monohydrate (Monodox), 100 MG PO BID Duloxetine Hcl (Cymbalta), 60 MG PO QAM Hctz/Losartan (Hyzaar 25MG/100MG), 1 TAB PO QAM Melatonin (Melatonin Maximum Strengt), 10 MG PO HS Metoprolol Succinate (Metoprolol Succinate ER), 100 MG PO QAM Minoxidil (Minoxidil), 10 MG PO BID Multivitamin (Multivitamin), 1 TAB PO BID Rivaroxaban (Xarelto), 20 MG PO QPM Terazosin HCl (Terazosin HCl), 10 MG PO HS [Bexagliflozin], 20 MG PO DAILY Scheduled PRN Oxycodone HCl (Oxycodone HCl), 5 MG PO HS PRN for Pain Allergies Coded Allergies: Vancomycin (Verified Allergy, Intermediate, "My kidney's shut down", ) Vital Signs Date Time Temp Pulse Resp B/P (MAP) Pulse Ox O2 Delivery O2 Flow Rate FiO2 02/16/18 21:11 125 02/16/18 21:00 38.4 120 20 107/52 95 Room Air 02/16/18 18:49 38.9 88 20 131/71 95 Room Air Laboratory Results 02/16/18 20:05 Red Blood Count 4.24, Mean Corpuscular Volume 78.1, Mean Corpuscular Hemoglobin 26.2, Mean Corpuscular Hemoglobin Concent 33.5, Mean Platelet Volume 9.0, Neutrophils (%) (Auto) 83.3, Lymphocytes (%) (Auto) 8.7, Monocytes (%) (Auto) 6.3, Eosinophils (%) (Auto) 0.6, Basophils (%) (Auto) 0.3, Neutrophils # (Auto) 12.72, Lymphocytes # (Auto) 1.33, Monocytes # (Auto) 0.96, Eosinophils # (Auto) 0.09, Basophils # (Auto) 0.04 02/16/18 20:05 Test 02/16/18 20:05 02/16/18 20:30 White Blood Count 15.26 K/uL (4.8-10.8) Red Blood Count 4.24 M/uL (4.7-6.1) Hemoglobin 11.1 g/dL (14.0-18.0) Hematocrit 33.1 % (42-52) Mean Corpuscular Volume 78.1 fL (80-100) Mean Corpuscular Hemoglobin 26.2 pg (25-34) Mean Corpuscular Hemoglobin Concent 33.5 g/dl (32-36) Platelet Count 302 K/uL (130-400) Mean Platelet Volume 9.0 fL (7.4-10.4) Neutrophils (%) (Auto) 83.3 % Lymphocytes (%) (Auto) 8.7 % Monocytes (%) (Auto) 6.3 % Eosinophils (%) (Auto) 0.6 % Basophils (%) (Auto) 0.3 % Neutrophils # (Auto) 12.72 K/uL (1.4-6.5) Lymphocytes # (Auto) 1.33 K/uL (1.2-3.4) Monocytes # (Auto) 0.96 K/uL (0.11-0.59) Eosinophils # (Auto) 0.09 K/uL (0-0.5) Basophils # (Auto) 0.04 K/uL (0-0.2) RDW Standard Deviation 43.3 fL (36.4-46.3) RDW Coefficient of Variation 15.3 % (11.5-14.5) Immature Granulocyte % (Auto) 0.8 % Immature Granulocyte # (Auto) 0.12 K/uL (0.00-0.02) Erythrocyte Sedimentation Rate 84 mm/hr (0-14) Prothrombin Time 11.6 SECONDS (9.0-12.0) Prothromb Time International Ratio 1.1 (0.9-1.1) Activated Partial Thromboplast Time 38.3 SECONDS (21.0-31.0) Partial Thromboplastin Ratio 1.5 Anion Gap 7.0 mmol/L (3-11) Est Creatinine Clear Calc Drug Dose 65.1 ml/min Estimated GFR () 46.7 Estimated GFR (Non- 40.3 BUN/Creatinine Ratio 13.2 (10-20) Lactic Acid Level 1.7 mmol/L (0.4-2.0) Uric Acid 4.7 mg/dl (2.6-7.2) Calcium Level 8.8 mg/dl (8.5-10.1) Total Bilirubin 0.5 mg/dl (0.2-1) Direct Bilirubin 0.2 mg/dl (0-0.2) Aspartate Amino Transf (AST/SGOT) 22 U/L (15-37) Alanine Aminotransferase (ALT/SGPT) 40 U/L (12-78) Alkaline Phosphatase 111 U/L (45-117) C-Reactive Protein 29.80 mg/dl (0-0.29) Total Protein 7.9 gm/dl (6.4-8.2) Albumin 2.6 gm/dl (3.4-5.0) Medications Administered Medications (Trade) Dose Ordered Sig/Candy Route Start Time Stop Time Status Last Admin Dose Admin Sodium Chloride 2,000 ml @ 999 mls/hr Q2H1M STAT IV 02/16/18 19:06 02/16/18 21:06 DC 02/16/18 20:10 999 MLS/HR Acetaminophen (Tylenol Tab) 1,000 mg NOW STAT PO 02/16/18 19:06 02/16/18 19:16 DC 02/16/18 19:47 1,000 MG Piperacillin Sod/ Tazobactam Sod (Zosyn Iv) 4.5 gm NOW STAT IV 02/16/18 19:06 02/16/18 19:16 DC 02/16/18 20:49 4.5 GM Departure Information Referrals Lynne AlvarezRCharissaN.PCharissa (PCP) Patient Instructions My [facility]
[2018-02-16] MEDS ORDERED: SODIUM CHLORIDE 0.9% 1000ML 1,000 ML IV STA ×2 (21:47→22:04)
[2018-02-16] MEDS ORDERED: POTASSIUM CHLORIDE 10 MEQ / 100ML WTR IV STA (22:12)
[2018-02-16 22:32] VITALS: BP 147/81; PULSE 124; O2SAT 97
== END 2018-02-16 22:40 | disposition short-term general hospital (02) ==
LOC: C.EDB 18:39
DX: M00.861 Arthritis due to other bacteria, right knee (principal); L03.115 Cellulitis of right lower limb; I48.0 Paroxysmal atrial fibrillation; D72.829 Elevated white blood cell count, unspecified; E87.6 Hypokalemia; D64.9 Anemia, unspecified; R94.31 Abnormal electrocardiogram [ECG] [EKG]; I10 Essential (primary) hypertension; Z96.653 Presence of artificial knee joint, bilateral; Z79.01 Long term (current) use of anticoagulants; Z88.1 Allergy status to other antibiotic agents